=== PATIENT | female | born 1980 | race Caucasian/White ===

== ENCOUNTER 2018-05-27 10:16 | Emergency (ER) | payer SELFPAY ==
--- OUTSIDE RECORDS SUMMARY | 2018-05-27 10:18 | XMS REPORT ---
:1980 [facility] Address [address] Raya [address] [place] [id number] Care Team Providers Name Role Phone Unavailable Unavailable Unavailable Problems This patient has no known problems. Allergies, Adverse Reactions, Alerts This patient has no known allergies or adverse reactions. Medications This patient has no known medications.
[2018-05-27 12:12] LABS: Absolute Lymphocytes (CBC) 3.1 K/uL (0.7-4.9); Absolute Monocytes 0.5 K/uL (0.1-1.3); Absolute Neutrophil 5.7 K/uL (1.8-8.0); Basophils % 0.8 % (0-1.3); Eosinophils % 1.1 % (0-4.4); Hematocrit 47.3 % (36.0-45.0); Lymphocytes % 32.8 % (15.3-44.8); MPV 9.2 fL (7.6-11.3); Monocytes % 5.4 % (3.3-12.3); RBC Red Blood Cell Count 5.05 M/uL (3.86-4.86)
[2018-05-27 12:26] LABS: ALT/SGPT 14 U/L (12-78); AST/SGOT 10 U/L (15-37); Albumin 3.9 g/dL (3.4-5.0); Alkaline Phosphatase 100 U/L (45-117); BUN Blood Urea Nitrogen 9 mg/dL (7-18); Bicarbonate 29 mmol/L (21-32); Bilirubin Direct < 0.1 mg/dL (0-0.2); Bilirubin Total 0.4 mg/dL (0.2-1.0); Glucose Level 90 mg/dL (74-106); Lipase 134 U/L (73-393); Potassium 3.8 mmol/L (3.5-5.1); Protein, Total 7.9 g/dL (6.4-8.2); Sodium Level 140 mmol/L (136-145)
--- NOTE | 2018-05-27 13:15 | RAD REPORT ---
EXAM DESCRIPTION: CTAbdomen Pelvis W Contrast - 05/27/2018 1:07 pm CLINICAL HISTORY: Abdominal pain. ABD PAIN COMPARISON: CT ABD PELVIS W CONTRAST dated 04/02/2014 TECHNIQUE: Biphasic CT imaging of the abdomen and pelvis was performed with 100 ml non-ionic IV cont rast. All CT scans are performed using dose optimization technique as appropriate and may include automated exposure control or mA/KV adjustment according to patient size. FINDINGS: The lung bases are clear. The liver, spleen, pancreas, adrenal glands and kidneys are within normal limits. No bowel obstruction, free air, free fluid or abscess. The appendix is normal. No evidence of signi ficant lymphadenopathy. No suspicious bony findings. IMPRESSION: No acute intra-abdominal or pelvic finding.
[2018-05-27 13:22] LABS: Urine Blood NEGATIVE (NEG); Urine Glucose NEGATIVE (NEG); Urine Protein NEGATIVE (NEG); Urine pH 6.5 (5.0-7.0)
--- NOTE | 2018-05-27 13:52 | EDPHYS ---
Physician Documentation [facility] Name: Manolo Cotter Age: 38 yrs Sex: Female : 1980 Arrival Date: 05/27/2018 Time: 10:18 Bed 15 Private MD: ED Physician Seth Riley HPI: 05/27 11:30 This 38 yrs old Female presents to ER via Ambulatory with complaints of cp Abdominal Pain. 11:30 The patient presents with abdominal pain in the left upper quadrant. Onset: The cp symptoms/episode began/occurred 2 year(s) ago. The symptoms radiate to left back. Associated signs and symptoms: Pertinent positives: left lower rib pain, Pertinent negatives: blood in stools, constipation, diarrhea, fever, shortness of breath, vomiting. The symptoms are described as sharp. Modifying factors: the symptoms are aggravated by food. Severity of pain: in the emergency department the pain has improved mildly. 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 - Social history:: Smoking status: Patient uses tobacco products, smokes one pack cigarettes per day. - Ebola Screening: : Patient negative for fever greater than or equal to 101.5 degrees Fahrenheit, and additional compatible Ebola Virus Disease symptoms Patient denies exposure to infectious person Patient denies travel to an Ebola-affected area in the 21 days before illness onset. ROS: 11:35 Constitutional: Negative for body aches, chills, fever, poor PO intake, weight loss. cp 11:35 Eyes: Negative for injury, pain, redness, and discharge. cp 11:35 ENT: Negative for drainage from ear(s), ear pain, sore throat, difficulty swallowing, difficulty handling secretions. 11:35 Respiratory: Negative for cough, shortness of breath, wheezing. 11:35 Abdomen/GI: Positive for abdominal pain, of the epigastric area and left upper quadrant, Negative for vomiting, diarrhea, constipation, black/tarry stool, rectal bleeding. 11:35 Back: Negative for pain at rest, pain with movement. 11:35 Skin: Negative for cellulitis, rash. 11:35 All other systems are negative. Exam: 11:45 Constitutional: The patient appears in no acute distress, alert, awake, cp non-diaphoretic, non-toxic, well developed, well nourished. 11:45 Head/Face: Normocephalic, atraumatic. cp 11:45 Eyes: Periorbital structures: appear normal, Conjunctiva: normal, no exudate, no injection, Sclera: no appreciated abnormality, Lids and lashes: appear normal, bilaterally. 11:45 ENT: External ear(s): are unremarkable, Nose: is normal, Mouth: Lips: moist, Oral mucosa: pink and intact, moist, Posterior pharynx: is normal, airway is patent, no erythema, no exudate. 11:45 Chest/axilla: Inspection: normal, Palpation: crepitus, is not appreciated, tenderness, that is mild, of the left lower lateral rib area. 11:45 Cardiovascular: Rate: normal, Rhythm: regular, Heart sounds: murmur, not appreciated, Edema: is not appreciated, JVD: is not appreciated. 11:45 Respiratory: the patient does not display signs of respiratory distress, Respirations: normal, no use of accessory muscles, no retractions, no splinting, no tachypnea, labored breathing, is not present, Breath sounds: are clear throughout, no decreased breath sounds, no stridor, no wheezing. 11:45 Abdomen/GI: Inspection: abdomen appears normal, Bowel sounds: active, all quadrants, Palpation: soft, in all quadrants, moderate abdominal tenderness, in the left upper quadrant, rebound tenderness, is not appreciated, involuntary guarding, is not appreciated. 11:45 Back: pain, is absent, ROM is normal. 11:45 Skin: cellulitis, is not appreciated, no rash present. Vital Signs: 10:43 BP 135 / 96; Pulse 78; Resp 18; Temp 98.2; Pulse Ox 100% on R/A; Weight 77.11 kg; dm5 Height 5 ft. 2 in. (157.48 cm); Pain 0/10; 11:30 BP 119 / 90 LA; Pulse 71; Resp 16 S; Pulse Ox 96% on R/A; rv 12:00 BP 119 / 92 LA; Pulse 69; Resp 19 S; Pulse Ox 95% on R/A; rv 14:06 BP 129 / 92 LA; Pulse 71; Resp 17 S; Pulse Ox 96% on R/A; rv 10:43 Body Mass Index 31.09 (77.11 kg, 157.48 cm) dm5 MDM: 11:28 Patient medically screened. [facility] 13:50 Data reviewed: vital signs, nurses notes, lab test result(s), radiologic studies, CT cp scan. 13:50 Counseling: I had a detailed discussion with the patient and/or guardian regarding: the cp historical points, exam findings, and any diagnostic results supporting the discharge/admit diagnosis, lab results, radiology results, the need for outpatient follow up, a producer director, to return to the emergency department if symptoms worsen or persist or if there are any questions or concerns that arise at home. Response to treatment: the patient's symptoms have mildly improved after treatment, and as a result, I will discharge patient. Special discussion: Based on the patient's Hx, exam, and Dx evaluation, there is no indication for emergent surgery or inpatient Tx. It is understood by the patient/guardian that if the Sx's persist or worsen they need to return immediately for re-evaluation. 05/27 11:39 Order name: Basic Metabolic Panel; Complete Time: 12:54 cp 05/27 11:39 Order name: CBC with Diff; Complete Time: 12:54 cp 05/27 12:55 Interpretation: Normal except: RBC 5.05; HGB 16.0; HCT 47.3. cp 05/27 11:39 Order name: Creatinine for Radiology; Complete Time: 12:54 cp 05/27 11:39 Order name: Hepatic Function; Complete Time: 12:54 cp 05/27 11:39 Order name: Lipase; Complete Time: 12:54 cp 05/27 12:08 Order name: Urine Dipstick--Ancillary (enter results); Complete Time: 13:23 bd 05/27 10:49 Order name: CT Abd/Pelvis - W/Contrast; Complete Time: 13:23 dm5 05/27 13:24 Interpretation: Report reviewed. cp 05/27 11:39 Order name: IV Saline Lock; Complete Time: 12:34 cp 05/27 11:39 Order name: Labs collected and sent; Complete Time: 12:34 cp 05/27 11:39 Order name: Urine Dipstick-Ancillary (obtain specimen); Complete Time: 12:34 cp 05/27 11:39 Order name: Urine Test (obtain specimen); Complete Time: 12:34 cp 05/27 12:08 Order name: Urine --Ancillary (enter results); Complete Time: 13:23 bd Administered Medications: 14:06 Drug: GI Cocktail without - (Maalox Suspension 30 ml, Lidocaine Liquid 2 % 15 rv ml) Route: PO; 14:06 Follow up: Response: Medication administered at discharge. rv Disposition: 05/27/18 13:51 Discharged to Home. Impression: Upper abdominal pain, unspecified. - Condition is Stable. - Discharge Instructions: Food Choices for Gastroesophageal Reflux Disease, Adult, Gastritis, Adult, Gastroesophageal Reflux Disease, Adult. - Prescriptions for Protonix 40 mg Oral Tablet - take 1 tablet by ORAL route once daily; 30 tablet. - Medication Reconciliation Form, Thank You Letter, Antibiotic Education, Prescription Opioid Use form. - Follow up: Bashir Duval MD; When: 1 week; Reason: Recheck today's complaints. - Problem is an ongoing problem. - Symptoms have improved. Addendum: 05/28/2018 14:17 Co-signature as Attending Physician, Seth Riley MD I agree with the assessment and c carpio plan of care. Signatures: Dispatcher [employer] Mima Lopez, RN RN dm5 Seth Riley MD MD cha Page, Corey, PA PA cp Sandoval Gutierres RN RN rv Corrections: (The following items were deleted from the chart) 05/27 14:08 13:51 05/27/2018 13:51 Discharged to Home. Impression: Upper abdominal pain, rv unspecified. Condition is Stable. Forms are Medication Reconciliation Form, Thank You Letter, Antibiotic Education, Prescription Opioid Use. Follow up: Bashir Duval; When: 1 week; Reason: Recheck today's complaints. Problem is an ongoing problem. Symptoms have improved. cp
--- NOTE | 2018-05-27 13:52 | ER ---
Nurse's Notes [facility] Name: Manolo Cotter Age: 38 yrs Sex: Female : 1980 Arrival Date: 05/27/2018 Time: 10:18 Bed 15 Private MD: Diagnosis: Upper abdominal pain, unspecified Presentation: 05/27 10:39 Presenting complaint: Patient states: pressure/pain under left ribs with intermittent dm5 sharp pain. bloody nose after vomiting Friday night. Transition of care: patient was not received from another setting of care. Onset of symptoms was May 22, 2018. Risk Assessment: Do you want to hurt yourself or someone else? Patient reports no desire to harm self or others. Initial Sepsis Screen: Does the patient meet any 2 criteria? No. Patient's initial sepsis screen is negative. Does the patient have a suspected source of infection? No. Patient's initial sepsis screen is negative. Care prior to arrival: None. 10:39 Method Of Arrival: Ambulatory dm5 10:39 Acuity: NIKO 3 dm5 Triage Assessment: 10:43 General: Appears in no apparent distress. Behavior is calm, cooperative. Pain: dm5 Complains of pain in left upper quadrant Quality of pain is described as sharp, stabbing, pt says most of the time it is like a pressure, a ball under her left ribs. GI: Abdomen is round obese, Reports nausea, vomiting. Derm: Skin is pink, warm \T\ dry. 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 - Social history:: Smoking status: Patient uses tobacco products, smokes one pack cigarettes per day. - Ebola Screening: : Patient negative for fever greater than or equal to 101.5 degrees Fahrenheit, and additional compatible Ebola Virus Disease symptoms Patient denies exposure to infectious person Patient denies travel to an Ebola-affected area in the 21 days before illness onset. Screenin:45 Abuse screen: Denies threats or abuse. Denies injuries from another. Nutritional rv screening: No deficits noted. Tuberculosis screening: No symptoms or risk factors identified. Fall Risk None identified. Assessment: 11:42 General: Appears in no apparent distress. comfortable, Behavior is calm, cooperative. rv Pain: Complains of pain in abdomen. Neuro: Level of Consciousness is awake, alert, obeys commands, Oriented to person, place, time, situation. Cardiovascular: Reports. Respiratory: Reports. GI: Bowel sounds present X 4 quads. Abd is soft and non tender X 4 quads. : No signs and/or symptoms were reported regarding the genitourinary system. : No signs and/or symptoms were reported regarding the genitourinary system. EENT: No signs and/or symptoms were reported regarding the EENT system. Derm: Skin is intact. Musculoskeletal: No signs and/or symptoms reported regarding the musculoskeletal system. 12:44 Reassessment: patient finished the oral contrast and started developing diarrhea after. rv Vital Signs: 10:43 BP 135 / 96; Pulse 78; Resp 18; Temp 98.2; Pulse Ox 100% on R/A; Weight 77.11 kg; dm5 Height 5 ft. 2 in. (157.48 cm); Pain 0/10; 11:30 BP 119 / 90 LA; Pulse 71; Resp 16 S; Pulse Ox 96% on R/A; rv 12:00 BP 119 / 92 LA; Pulse 69; Resp 19 S; Pulse Ox 95% on R/A; rv 14:06 BP 129 / 92 LA; Pulse 71; Resp 17 S; Pulse Ox 96% on R/A; rv 10:43 Body Mass Index 31.09 (77.11 kg, 157.48 cm) dm5 ED Course: 10:18 Patient arrived in ED. as 10:43 Triage completed. dm5 10:43 Arm band placed on right wrist. Patient placed in waiting room. dm5 11:28 Seth Kamara PA is PHCP. cp 11:28 Seth Riely MD is Attending Physician. cp 11:30 CT that pt completed contrast at 11:27. dm5 11:46 Patient has correct armband on for positive identification. Bed in low position. Call rv light in reach. Side rails up X 1. Pulse ox on. NIBP on. 12:00 Inserted saline lock: 20 gauge in right antecubital area, using aseptic technique. rv Blood collected. 13:06 CT completed. Patient tolerated procedure well. Patient moved to CT via wheelchair. [id number] Patient moved back from CT. 13:07 CT Abd/Pelvis - W/Contrast In Process Unspecified. EDMS 13:50 Bashir Duval MD is Referral Physician. cp 14:08 No provider procedures requiring assistance completed. IV discontinued, bleeding rv controlled, No redness/swelling at site. Pressure dressing applied. Administered Medications: 14:06 Drug: GI Cocktail without - (Maalox Suspension 30 ml, Lidocaine Liquid 2 % 15 rv ml) Route: PO; 14:06 Follow up: Response: Medication administered at discharge. rv Outcome: 13:51 Discharge ordered by . cp 14:08 Discharged to home ambulatory. rv 14:08 Condition: good 14:08 Discharge instructions given to patient, Instructed on discharge instructions, follow up and referral plans. medication usage, Demonstrated understanding of instructions, follow-up care, medications, Prescriptions given X 1. 14:08 Patient left the ED. rv Signatures: Dispatcher [employer] EDWI Mima Hardy, YADIRA RN dm5 Ting Montez Corey, PA PA cp Sandoval Gutierres RN RN rv Jeanie Rodriguezg6 Corrections: (The following items were deleted from the chart) 10:46 10:43 BP 125 / 96; Pulse 78bpm; Resp 18bpm; Pulse Ox 100% RA; Temp 98.2F; 77.11 kg; dm5 Height 5 ft. 2 in.; BMI: 31.0; Pain 0/10; dm5
[2018-05-27] MEDS ORDERED: MAGNE/ALUM HYDROXD 30 ML UCUP ONE (14:12)
[2018-05-27] MEDS ORDERED: LIDOCAINE VISCOUS 2% SOLN 15 ML UDC ONE (14:13)
== END 2018-05-27 14:08 | disposition home or self-care (01) ==
LOC: ER 10:16
DX: R10.12 Left upper quadrant pain (principal); I10 Essential (primary) hypertension; F17.210 Nicotine dependence, cigarettes, uncomplicated; Z88.0 Allergy status to penicillin; Z88.1 Allergy status to other antibiotic agents
CPT/HCPCS: 36415; 74177; 80048; 80076; 81003; 81025; 83690; 85025; 99284; Q9967

== ENCOUNTER 2019-01-14 13:03 | Emergency (ER) | payer SELFPAY ==
[2019-01-14] MEDS ORDERED: KETOROLAC 30 MG/ML INJ ONE (13:35)
--- NOTE | 2019-01-14 14:44 | RAD REPORT ---
EXAM DESCRIPTION: RAD - Wrist Right 3 View - 01/14/2019 2:28 pm CLINICAL HISTORY: Right wrist pain status post injury FINDINGS: Small bony density lies adjacent to the base of the fifth proximal phalanx. Most likely it is chronic. If the patient has clinical symptoms to suggest an acute injury in this region then eith er further evaluation with CT or MRI could be obtained Otherwise, no fracture or dislocation noted
--- NOTE | 2019-01-14 15:40 | EDPHYS ---
Physician Documentation [facility] Name: Manolo Cotter Age: 38 yrs Sex: Female : 1980 Arrival Date: 01/14/2019 Time: 13:05 Bed 13 Private MD: Unknown, Unknown ED Physician Kimo Mcdaniel HPI: 01/14 13:34 This 38 yrs old Female presents to ER via Ambulatory with complaints of Wrist kb Pain. 13:34 The patient or guardian reports decreased range of motion, injury, pain, swelling, kb tenderness. The complaints affect the right wrist diffusely. Context: The problem was sustained at home, resulted from pushing up on hands from bed and felt a pop in right wrist. Onset: The symptoms/episode began/occurred today, at 02:00. Modifying factors: The symptoms are alleviated by nothing, the symptoms are aggravated by movement. Associated signs and symptoms: The patient has no apparent associated signs or symptoms. The patient has not experienced similar symptoms in the past. The patient has not recently seen a physician. 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 - Social history:: Smoking status: Patient uses tobacco products, smokes one pack cigarettes per day. - Ebola Screening: : No symptoms or risks identified at this time. ROS: 13:32 Constitutional: Negative for fever, chills, and weight loss, Cardiovascular: Negative kb for chest pain, palpitations, and edema, Respiratory: Negative for shortness of breath, cough, wheezing, and pleuritic chest pain, Abdomen/GI: Negative for abdominal pain, nausea, vomiting, diarrhea, and constipation, Skin: Negative for injury, rash, and discoloration, Neuro: Negative for headache, weakness, numbness, tingling, and seizure. 13:32 MS/extremity: Positive for injury or acute deformity, decreased range of motion, pain, tenderness, of the right wrist. Exam: 13:32 Constitutional: This is a well developed, well nourished patient who is awake, alert, kb and in no acute distress. Head/Face: Normocephalic, atraumatic. ENT: Nares patent. No nasal discharge, no septal abnormalities noted. Tympanic membranes are normal and external auditory canals are clear. Oropharynx with no redness, swelling, or masses, exudates, or evidence of obstruction, uvula midline. Mucous membranes moist. Neck: Trachea midline, no thyromegaly or masses palpated, and no cervical lymphadenopathy. Supple, full range of motion without nuchal rigidity, or vertebral point tenderness. No Meningismus. Chest/axilla: Normal chest wall appearance and motion. Nontender with no deformity. No lesions are appreciated. Cardiovascular: Regular rate and rhythm with a normal S1 and S2. No gallops, murmurs, or rubs. Normal PMI, no JVD. No pulse deficits. Respiratory: Lungs have equal breath sounds bilaterally, clear to auscultation and percussion. No rales, rhonchi or wheezes noted. No increased work of breathing, no retractions or nasal flaring. Abdomen/GI: Soft, non-tender, with normal bowel sounds. No distension or tympany. No guarding or rebound. No evidence of tenderness throughout. Skin: Warm, dry with normal turgor. Normal color with no rashes, no lesions, and no evidence of cellulitis. Neuro: Awake and alert, GCS 15, oriented to person, place, time, and situation. Cranial nerves II-XII grossly intact. Motor strength 5/5 in all extremities. Sensory grossly intact. Cerebellar exam normal. Normal gait. 13:32 Musculoskeletal/extremity: Extremities: grossly normal except: noted in the right wrist: decreased ROM, pain, swelling, tenderness, ROM: limited active range of motion due to pain, in the right wrist, Circulation is intact in all extremities. Sensation intact. Vital Signs: 13:14 BP 150 / 102; Pulse 77; Resp 16; Temp 97.5; Pulse Ox 100% on R/A; Weight 81.65 kg; hb Height 5 ft. 3 in. (160.02 cm); Pain 9/10; 15:44 BP 135 / 89; Pulse 81; Resp 16 S; Pulse Ox 100% on R/A; ca1 13:14 Body Mass Index 31.89 (81.65 kg, 160.02 cm) hb MDM: 13:13 Patient medically screened. kb 13:33 Data reviewed: vital signs, nurses notes. Data interpreted: Pulse oximetry: on room air kb is 100 %. Interpretation: normal. 14:42 Test interpretation: by ED physician or midlevel provider: plain radiologic studies, kb negative for fracture. Counseling: I had a detailed discussion with the patient and/or guardian regarding: the historical points, exam findings, and any diagnostic results supporting the discharge/admit diagnosis, radiology results, the need for outpatient follow up, a family practitioner, to return to the emergency department if symptoms worsen or persist or if there are any questions or concerns that arise at home. 01/14 13:13 Order name: Wrist Right 3 View XRAY; Complete Time: 15:42 kb 01/14 14:43 Order name: Wrist Splint; Complete Time: 15:44 kb Administered Medications: 13:40 Drug: TORadol 30 mg Route: IM; Site: left deltoid; ca1 15:44 Follow up: Response: No adverse reaction; Pain is decreased ca1 Disposition: 01/15 09:16 Co-signature as Attending Physician, Kimo Mcdaniel MD I agree with the assessment and kdr plan of care. Disposition: 01/14/19 15:39 Discharged to Home. Impression: Pain in right wrist. - Condition is Stable. - Discharge Instructions: Wrist Pain, [id number]. - Prescriptions for Diclofenac Sodium 75 mg Oral Tablet, Delayed Release (E.C.) - take 1 tablet by ORAL route 2 times per day As needed; 30 tablet. - Medication Reconciliation Form, Thank You Letter, Antibiotic Education, Prescription Opioid Use form. - Follow up: Emergency Department; When: As needed; Reason: Worsening of condition. Follow up: Private Physician; When: 2 - 3 days; Reason: Recheck today's complaints, Continuance of care, Re-evaluation by your physician. Signatures: Dispatcher [employer] EDMS Mahsa Vivas, CASTING TESTER-C JENIFER-Kimo Kovacs MD MD [facility] Christy Miller RN RN Gala Rebolledo RN RN ca1 Corrections: (The following items were deleted from the chart) 01/14 15:45 15:39 01/14/2019 15:39 Discharged to Home. Impression: Pain in right wrist. Condition ca1 is Stable. Discharge Instructions: Wrist Pain, [id number]. Forms are Medication Reconciliation Form, Thank You Letter, Antibiotic Education, Prescription Opioid Use. Follow up: Emergency Department; When: As needed; Reason: Worsening of condition. Follow up: Private Physician; When: 2 - 3 days; Reason: Recheck today's complaints, Continuance of care, Re-evaluation by your physician. kb
--- NOTE | 2019-01-14 15:40 | ER ---
Nurse's Notes [facility] Name: Manolo Cotter Age: 38 yrs Sex: Female : 1980 Arrival Date: 01/14/2019 Time: 13:05 Bed 13 Private MD: Unknown, Unknown Diagnosis: Pain in right wrist Presentation: 01/14 13:11 Presenting complaint: [place] and heard a loud pop in right wrist while adjusting in bed hb last night, now c/o right wrist pain 11/24. Transition of care: patient was not received from another setting of care. Onset of symptoms was January 14, 2019. Risk Assessment: Do you want to hurt yourself or someone else? Patient reports no desire to harm self or others. Care prior to arrival: Medication(s) given: Motrin, at 0600. 13:11 Method Of Arrival: Ambulatory hb 13:11 Acuity: NIKO 4 hb 13:31 Initial Sepsis Screen: Does the patient meet any 2 criteria? No. Patient's initial ca1 sepsis screen is negative. Does the patient have a suspected source of infection? No. Patient's initial sepsis screen is negative. 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 - Social history:: Smoking status: Patient uses tobacco products, smokes one pack cigarettes per day. - Ebola Screening: : No symptoms or risks identified at this time. Screenin:28 Abuse screen: Denies threats or abuse. Denies injuries from another. Nutritional ca1 screening: No deficits noted. Tuberculosis screening: No symptoms or risk factors identified. Fall Risk None identified. Assessment: 13:28 General: Appears in no apparent distress. comfortable, Behavior is calm, cooperative, ca1 appropriate for age. Pain: Complains of pain in dorsal aspect of right wrist and palmar aspect of right wrist Pain radiates to right hand and right arm Pain currently is 9 out of 10 on a pain scale. Pain began 1 day ago. Neuro: Level of Consciousness is awake, alert, obeys commands, Oriented to person, place, time, situation, Appropriate for age. Derm: Skin is intact, is healthy with good turgor, Skin is pink, warm \T\ dry. Musculoskeletal: Circulation, motion, and sensation intact. Capillary refill < 3 seconds, Range of motion: limited in right wrist Swelling present in right hand. 14:30 Reassessment: Patient appears in no apparent distress at this time. Patient is alert, ca1 oriented x 3, equal unlabored respirations, skin warm/dry/pink. 15:44 Reassessment: Patient appears in no apparent distress at this time. Patient is alert, ca1 oriented x 3, equal unlabored respirations, skin warm/dry/pink. Vital Signs: 13:14 BP 150 / 102; Pulse 77; Resp 16; Temp 97.5; Pulse Ox 100% on R/A; Weight 81.65 kg; hb Height 5 ft. 3 in. (160.02 cm); Pain 9/10; 15:44 BP 135 / 89; Pulse 81; Resp 16 S; Pulse Ox 100% on R/A; ca1 13:14 Body Mass Index 31.89 (81.65 kg, 160.02 cm) hb ED Course: 13:05 Patient arrived in ED. ag5 13:05 Unknown, Unknown is Private Physician. ag5 13:12 Triage completed. hb 13:13 [facility]-C [facility] kb 13:13 Kimo Mcdaniel MD is Attending Physician. kb 13:14 Arm band placed on. hb 13:17 Gala Rebolledo, YADIRA is Primary Nurse. ca1 13:28 Patient has correct armband on for positive identification. Bed in low position. Call ca1 light in reach. Side rails up X 1. Ice pack to injury. Elevated right hand. 13:28 No provider procedures requiring assistance completed. Patient did not have IV access ca1 during this emergency room visit. 14:28 Wrist Right 3 View XRAY In Process Unspecified. EDMS 15:44 Velcro wrist splint applied to right wrist. ca1 Administered Medications: 13:40 Drug: TORadol 30 mg Route: IM; Site: left deltoid; ca1 15:44 Follow up: Response: No adverse reaction; Pain is decreased ca1 Outcome: 15:39 Discharge ordered by . kb 15:44 Discharged to home ambulatory, with family. ca1 15:44 Condition: stable 15:44 Discharge instructions given to patient, Instructed on discharge instructions, follow up and referral plans. medication usage, Demonstrated understanding of instructions, follow-up care, medications, Prescriptions given X 1. 15:45 Patient left the ED. ca1 Signatures: Dispatcher [employer] EDRI Mahsa Vivas, Christy Wallace RN RN Gala Rebolledo RN RN ca1 Janice Ibanez ag5
[2019-01-14 16:04] VITALS: TEMP 97.5; O2SAT 100
[2019-01-14 16:06] VITALS: BP 135/89
== END 2019-01-14 15:45 | disposition home or self-care (01) ==
LOC: ER 13:03
DX: M25.531 Pain in right wrist (principal); Z88.0 Allergy status to penicillin; Z88.1 Allergy status to other antibiotic agents; I10 Essential (primary) hypertension
CPT/HCPCS: 96372; 99284

== ENCOUNTER 2019-04-14 01:50 | Emergency (ER) | payer SELFPAY ==
--- OUTSIDE RECORDS SUMMARY | 2019-04-14 01:53 | XMS REPORT ---
:1980 [facility] [address] [place] [id number] Care Team Providers Name Role Phone Unavailable Unavailable Unavailable Problems This patient has no known problems. Allergies, Adverse Reactions, Alerts This patient has no known allergies or adverse reactions. Medications This patient has no known medications.
[2019-04-14 02:48] LABS: Protime INR 1.01
[2019-04-14 02:49] LABS: Absolute Lymphocytes (CBC) 2.4 K/uL (0.7-4.9); Basophils % 0.7 % (0-1.3); Hematocrit 42.5 % (36.0-45.0); Lymphocytes % 17.3 % (15.3-44.8); MPV 9.2 fL (7.6-11.3); RBC Red Blood Cell Count 4.58 M/uL (3.86-4.86)
[2019-04-14 03:01] LABS: Urine Blood NEGATIVE (NEG); Urine Glucose NEGATIVE (NEG); Urine Protein NEGATIVE (NEG); Urine Specific Gravity <1.005 (1.005-1.030)
[2019-04-14 03:07] LABS: ALT/SGPT 16 U/L (12-78); AST/SGOT 16 U/L (15-37); Albumin 3.7 g/dL (3.4-5.0); Alkaline Phosphatase 127 U/L (45-117); BUN Blood Urea Nitrogen 16 mg/dL (7-18); Bicarbonate 28 mmol/L (21-32); Bilirubin Direct < 0.1 mg/dL (0-0.2); Bilirubin Total 0.2 mg/dL (0.2-1.0); Glucose Level 103 mg/dL (74-106); Magnesium 1.8 mg/dL (1.8-2.4); NT PRO-BNP 32 pg/mL (<125); Potassium 4.2 mmol/L (3.5-5.1); Protein, Total 7.2 g/dL (6.4-8.2); Sodium Level 138 mmol/L (136-145); Troponin (Emerg Dept Use Only) < 0.02 ng/mL (0.0-0.045)
--- NOTE | 2019-04-14 04:21 | ER ---
Nurse's Notes [facility] Name: Manolo Cotter Age: 39 yrs Sex: Female : 1980 Arrival Date: 04/14/2019 Time: 01:53 Bed 24 Private MD: Diagnosis: Syncope and collapse Presentation: 04/14 02:00 Presenting complaint: Patient states: around 2330, passed out, had witnessed seizure ch like activity for approx 2 min, then came right back to normal. since then has had urinary frequency and bowel frequency. 02:00 Transition of care: patient was not received from another setting of care. Onset of ch symptoms was April 13, 2019 at 23:30. Risk Assessment: Do you want to hurt yourself or someone else? Patient reports no desire to harm self or others. Initial Sepsis Screen: Does the patient meet any 2 criteria? No. Patient's initial sepsis screen is negative. Does the patient have a suspected source of infection? No. Patient's initial sepsis screen is negative. Note pt states she has to go to the restroom. pt refuses EKG till she has urinated. Care prior to arrival: None. 02:00 Method Of Arrival: Ambulatory 02:00 Acuity: NIKO 3 ch Triage Assessment: 02:10 General: Appears in no apparent distress. Behavior is cooperative, appropriate for age, ch anxious. Pain: Complains of pain in mid-sternal area Pain currently is 2 out of 10 on a pain scale. Pain began suddenly, 3 hours ago. Neuro: No deficits noted. Respiratory: Airway is patent Respiratory effort is even, unlabored. 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 Flu vaccine status is unknown. - Coronavirus screen:: The patient has NOT traveled to [place], [place], or [place] in the past 14 days. The patient has NOT had contact with known/suspected case of Coronavirus?. - Social history:: Smoking status: Patient reports the use of cigarette tobacco products, smokes two packs cigarettes per day. Patient/guardian denies using alcohol, street drugs. - Ebola Screening: : Patient negative for fever greater than or equal to 101.5 degrees Fahrenheit, and additional compatible Ebola Virus Disease symptoms Patient denies exposure to infectious person Patient denies travel to an Ebola-affected area in the 21 days before illness onset No symptoms or risks identified at this time. Screenin:40 Abuse screen: Denies threats or abuse. Denies injuries from another. Nutritional ch screening: No deficits noted. Tuberculosis screening: No symptoms or risk factors identified. Fall Risk Fall in past 12 months (25 points). No secondary diagnosis (0 pts). IV access (20 points). Ambulatory Aid- None/Bed Rest/Nurse Assist (0 pts). Gait- Normal/Bed Rest/Wheelchair (0 pts) Mental Status- Oriented to own ability (0 pts). Total Ashraf Fall Scale indicates Low Risk Score (25-44 pts). Fall prevention measures have been instituted. Side Rails Up X 2 Placed close to Nursing Station Frequent Obs/Assesments occuring Family Present and informed to notify staff if they need to leave bedside As available Patient and Family Educated on Fall Prevention Program and strategies. Assessment: 02:40 Reassessment: Patient appears in no apparent distress at this time. No changes from previously documented assessment. Patient and/or family updated on plan of care and expected duration. Pain level reassessed. Patient is alert, oriented x 3, equal unlabored respirations, skin warm/dry/pink. pt is aaox4, out of bed to restroom x3 since arrival. 02:57 Reassessment: Patient appears in no apparent distress at this time. Mando notified of pt ch thirst, urinary frequency, and family hx of diabetis insipidus. new labs ordered. 03:49 Reassessment: Patient appears in no apparent distress at this time. Patient and/or ch family updated on plan of care and expected duration. Pain level reassessed. Patient is alert, oriented x 3, equal unlabored respirations, skin warm/dry/pink. awaiting urine osmol results. pt has been to restroom over 10 times since arrival. 04:41 Reassessment: Patient appears in no apparent distress at this time. Patient and/or ch family updated on plan of care and expected duration. Pain level reassessed. Patient is alert, oriented x 3, equal unlabored respirations, skin warm/dry/pink. pt states she just feels tired. states she feels better but tired. Patient denies pain at this time. Vital Signs: 02:10 BP 147 / 104; Pulse 102; Resp 18; Temp 98.6; Pulse Ox 99% on R/A; Weight 81.65 kg; ch Height 5 ft. 2 in. (157.48 cm); Pain 2/10; 02:46 BP 122 / 88 LA Supine (auto/lg); Pulse 92; ch 02:48 BP 131 / 104 LA Sitting (auto/); Pulse 98 LA; ch 02:50 BP 126 / 111 LA Standing (auto/lg); Pulse 100 MON; ch 03:34 BP 115 / 78; Pulse 90; Resp 15; Temp 98.7; Pulse Ox 97% on R/A; Pain 2/10; ch 04:41 BP 110 / 72; Pulse 82; Resp 14; Temp 98.9; Pulse Ox 99% on R/A; Pain 1/10; ch 02:10 Body Mass Index 32.92 (81.65 kg, 157.48 cm) ch 02:50 Normal Sinus Rhythm ED Course: 01:53 Patient arrived in ED. ds1 01:57 Tania Estrada, RN is Primary Nurse. ch 02:09 Triage completed. ch 02:12 Mando Kinney FNP-C [facility]. la1 02:12 Jose Shankar MD is Attending Physician. la1 02:12 Arm band placed on left wrist. Patient placed in an exam room, on a stretcher, on groundwater monitoring technician, on pulse oximetry. EKG completed in triage. Results shown to MD. 02:15 No provider procedures requiring assistance completed. Inserted saline lock: 20 gauge in right antecubital area, using aseptic technique. Blood collected. 02:30 XRAY Chest (1 view) In Process Unspecified. EDMS 02:40 Patient has correct armband on for positive identification. Placed in gown. Bed in low ch position. Call light in reach. Side rails up X2. Adult w/ patient. groundwater monitoring technician on. Pulse ox on. NIBP on. Door closed. Noise minimized. Warm blanket given. Pillow given. 03:05 CT completed. Patient tolerated procedure well. Patient moved to CT via stretcher. Patient moved back from CT. 03:09 CT Head Brain wo Cont In Process Unspecified. EDMS 04:41 No apparent distress. Resting quietly. 04:41 IV discontinued, intact, bleeding controlled, No redness/swelling at site. Pressure dressing applied. Administered Medications: No medications were administered Outcome: 04:20 Discharge ordered by tw4 04:41 Discharged to home ambulatory, with family. 04:41 Condition: stable 04:41 Discharge instructions given to patient, family, Instructed on discharge instructions, follow up and referral plans. Demonstrated understanding of instructions, follow-up care. 04:42 Patient left the ED. Signatures: Dispatcher [employer] EDMS Tania Estrada, RN RN Alfa Hazel Jo Maria ds1 Mando Kinney, OUTDOOR EMERGENCY CARE TECHNICIAN-C OUTDOOR EMERGENCY CARE TECHNICIAN-Cla1 Jose Shankar MD MD tw4
--- NOTE | 2019-04-14 04:21 | EDPHYS ---
Physician Documentation [facility] Name: Manolo Cotter Age: 39 yrs Sex: Female : 1980 Arrival Date: 04/14/2019 Time: 01:53 Bed 24 Private MD: ED Physician Jose Shankar HPI: 04/14 02:34 This 39 yrs old Female presents to ER via Ambulatory with complaints of la1 Blacked Out Prior to Arrival. 02:34 The patient has experienced syncope, became unresponsive. Onset: The symptoms/episode la1 began/occurred just prior to arrival. Duration: This was a single episode, that lasted 2 minute(s). Context: the episode(s) was witnessed, by family, occurred at home, Just prior to the episode the patient experienced lightheadedness. Associated injury: The patient did not suffer any apparent associated injury. Associated signs and symptoms: Pertinent negatives: abdominal pain, chest pain, confusion, diaphoresis, diarrhea, numbness, palpitations, not . Current symptoms: Currently, the patient is not experiencing any symptoms. The patient has not experienced similar symptoms in the past. pt reports she heard the baby crying and got out of bed very fast, was trying to comfort the child but started to feel "bad" felt the need to sit down and then lay down and does not remember anything after than until waking up, family states she laid on the ground and than began "jerking" whole episode lasted about two minutes, pt did not have a post-ictal period and is currently alert, oriented x4. States she has had a lot of headaches recently.. 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 Flu vaccine status is unknown. - Coronavirus screen:: The patient has NOT traveled to [place], [place], or [place] in the past 14 days. The patient has NOT had contact with known/suspected case of Coronavirus?. - Social history:: Smoking status: Patient reports the use of cigarette tobacco products, smokes two packs cigarettes per day. Patient/guardian denies using alcohol, street drugs. - Ebola Screening: : Patient negative for fever greater than or equal to 101.5 degrees Fahrenheit, and additional compatible Ebola Virus Disease symptoms Patient denies exposure to infectious person Patient denies travel to an Ebola-affected area in the 21 days before illness onset No symptoms or risks identified at this time. ROS: 02:36 Constitutional: Negative for fever, chills, and weight loss, Eyes: Negative for injury, la1 pain, redness, and discharge, ENT: Negative for injury, pain, and discharge, Neck: Negative for injury, pain, and swelling, Cardiovascular: Negative for chest pain, palpitations, and edema, Respiratory: Negative for shortness of breath, cough, wheezing, and pleuritic chest pain, Abdomen/GI: Negative for abdominal pain, nausea, vomiting, diarrhea, and constipation, Back: Negative for injury and pain, : Negative for injury, bleeding, discharge, and swelling, MS/Extremity: Negative for injury and deformity, Neuro: Negative for headache, weakness, numbness, tingling, and seizure, Allergy/Immunology: Negative for hives, rash, and allergies, Endocrine: Negative for neck swelling, polydipsia, polyuria, polyphagia, and marked weight changes. Exam: 02:37 Constitutional: This is a well developed, well nourished patient who is awake, alert, la1 and in no acute distress. Head/Face: Normocephalic, atraumatic. Eyes: Pupils equal round and reactive to light, extra-ocular motions intact. Lids and lashes normal. Conjunctiva and sclera are non-icteric and not injected. Cornea within normal limits. Periorbital areas with no swelling, redness, or edema. ENT: Nares patent. No nasal discharge, no septal abnormalities noted. Mucous membranes moist. Neck: Trachea midline, no thyromegaly or masses palpated, and no cervical lymphadenopathy. Supple, full range of motion without nuchal rigidity, or vertebral point tenderness. No Meningismus. Chest/axilla: Normal chest wall appearance and motion. Nontender with no deformity. No lesions are appreciated. Cardiovascular: Regular rate and rhythm with a normal S1 and S2. No gallops, murmurs, or rubs. Normal PMI, no JVD. No pulse deficits. Respiratory: Lungs have equal breath sounds bilaterally, clear to auscultation Abdomen/GI: Soft, non-tender, with normal bowel sounds. Back: No spinal tenderness. No costovertebral tenderness. Full range of motion. Skin: Warm, dry with normal turgor. Normal color with no rashes, no lesions, and no evidence of cellulitis. MS/ Extremity: Pulses equal, no cyanosis. Neurovascular intact. Full, normal range of motion. 02:37 Neuro: Orientation: is normal, to person, place, time \\T\\ situation. Mentation: is normal, Memory: is normal, Cranial nerves: CN II- XII are normal as tested, visual stringer are intact. extraocular movements are intact, Cerebellar function: is grossly normal, Motor: is normal, Gait: is steady. Vital Signs: 02:10 BP 147 / 104; Pulse 102; Resp 18; Temp 98.6; Pulse Ox 99% on R/A; Weight 81.65 kg; ch Height 5 ft. 2 in. (157.48 cm); Pain 2/10; 02:46 BP 122 / 88 LA Supine (auto/lg); Pulse 92; ch 02:48 BP 131 / 104 LA Sitting (auto/); Pulse 98 LA; ch 02:50 BP 126 / 111 LA Standing (auto/lg); Pulse 100 MON; ch 03:34 BP 115 / 78; Pulse 90; Resp 15; Temp 98.7; Pulse Ox 97% on R/A; Pain 2/10; ch 04:41 BP 110 / 72; Pulse 82; Resp 14; Temp 98.9; Pulse Ox 99% on R/A; Pain 1/10; ch 02:10 Body Mass Index 32.92 (81.65 kg, 157.48 cm) ch 02:50 Normal Sinus Rhythm ch MDM: 02:12 Patient medically screened. la1 02:53 ED course: Pt up to pee four times so far in ED, has family hx of diabetes insipidus, la1 urine very dilute.. ED course: added serum and urine osmol. 03:33 ECG was reviewed by the Attending Physician. Data reviewed: vital signs, nurses notes, la1 lab test result(s), EKG, radiologic studies, I have discussed the patient's presentation/case with the attending Emergency Department Physician; and as a result, I will discharge patient. Data interpreted: Pulse oximetry: on room air is 100 %. Interpretation: normal. Test interpretation: by ED physician or midlevel provider: ECG, plain radiologic studies. Counseling: I had a detailed discussion with the patient and/or guardian regarding: the historical points, exam findings, and any diagnostic results supporting the discharge/admit diagnosis, the presence of at least one elevated blood pressure reading (>120/80) during this emergency department visit, lab results, the need for outpatient follow up, a bank vault clerk, a neurologist, to return to the emergency department if symptoms worsen or persist or if there are any questions or concerns that arise at home. 04/14 02:13 Order name: Basic Metabolic Panel; Complete Time: 03:12 04/14 02:13 Order name: CBC with Diff; Complete Time: 03:12 04/14 02:13 Order name: LFT's; Complete Time: 03:12 04/14 02:13 Order name: Magnesium; Complete Time: 03:12 04/14 02:13 Order name: NT PRO-BNP; Complete Time: 03:12 04/14 02:13 Order name: PT-INR; Complete Time: 03:12 04/14 02:13 Order name: Troponin (emerg Dept Use Only); Complete Time: 03:12 04/14 02:13 Order name: XRAY Chest (1 view) 04/14 02:13 Order name: EKG; Complete Time: 02:13 04/14 02:13 Order name: CT Head Brain wo Cont la1 04/14 02:23 Order name: Test, Serum; Complete Time: 03:12 [facility] 04/14 02:23 Order name: Urine Dipstick--Ancillary (enter results); Complete Time: 03:12 [facility] 04/14 02:52 Order name: Osmolality, Serum; Complete Time: 04:20 EDMS 04/14 04:20 Interpretation: Within normal limits: OSMOL 291. tw4 04/14 03:17 Order name: Urine Osmolality [facility] 04/14 02:13 Order name: Cardiac monitoring; Complete Time: 02:39 ch 04/14 02:13 Order name: EKG - Nurse/Tech; Complete Time: 02:39 04/14 02:13 Order name: IV Saline Lock; Complete Time: 02:39 04/14 02:13 Order name: Labs collected and sent; Complete Time: 02:39 04/14 02:13 Order name: O2 Per Protocol; Complete Time: 02:39 ch 04/14 02:13 Order name: O2 Sat Monitoring; Complete Time: 02:39 04/14 02:20 Order name: Orthostatics; Complete Time: 02:54 la1 Administered Medications: No medications were administered Disposition: 05:22 Co-signature as Attending Physician, Jose Shankar MD I agree with the assessment and tw4 plan of care. Disposition: 04/14/19 04:20 Discharged to Home. Impression: Syncope and collapse. - Condition is Stable. - Discharge Instructions: Near-Syncope, Syncope, Syncope, [id number], Vasovagal Syncope, Pediatric. - Family Work Release, Medication Reconciliation Form, Thank You Letter, Antibiotic Education, Prescription Opioid Use form. - Follow up: Private Physician; When: 2 - 3 days; Reason: Recheck today's complaints, Re-evaluation by your physician. Follow up: Emergency Department; When: As needed; Reason: Worsening of condition. - Problem is new. - Symptoms have improved. Signatures: Dispatcher [employer] EDMS Tania Estrada, YADIRA RN Mando Mueller, INSURANCE COMPLIANCE ANALYST-C INSURANCE COMPLIANCE ANALYST-Cla1 Jose Shankar MD MD tw4 Corrections: (The following items were deleted from the chart) 04:42 04:20 04/14/2019 04:20 Discharged to Home. Impression: Syncope and collapse. Condition ch is Stable. Discharge Instructions: Near-Syncope, Syncope, Syncope, [id number], Vasovagal Syncope, Pediatric. Forms are Medication Reconciliation Form, Thank You Letter, Antibiotic Education, Prescription Opioid Use. Follow up: Private Physician; When: 2 - 3 days; Reason: Recheck today's complaints, Re-evaluation by your physician. Follow up: Emergency Department; When: As needed; Reason: Worsening of condition. Problem is new. Symptoms have improved. tw4
[2019-04-14 04:56] VITALS: BP 110/72; TEMP 98.9; O2SAT 99
--- NOTE | 2019-04-14 06:35 | EKG ---
Test Date: 2019-04-14 Test Time: 02:11:04 World Designer: DENNISE MEASUREMENT RESULTS: Intervals: Rate: 96 MS: 148 QRSD: 86 QT: 346 QTc: 437 [place]: P: 74 MS: 148 QRS: 54 T: 86 INTERPRETIVE STATEMENTS: Normal sinus rhythm Low voltage QRS Borderline ECG Compared to ECG 04/02/2014 19:58:30 Low QRS voltage now present Sinus arrhythmia no longer present Myocardial infarct finding no longer present Electronically Signed On 04-14-19 06:34:52 OIL SPOT WASHER by Sylvain Adams
--- NOTE | 2019-04-14 07:55 | RAD REPORT ---
EXAM DESCRIPTION: Alex Single View04/14/2019 2:30 am CLINICAL HISTORY: Chest pain COMPARISON: none FINDINGS: The lungs appear clear of acute infiltrate. The heart is normal size IMPRESSION: No acute abnormalities displayed
--- NOTE | 2019-04-14 11:04 | RAD REPORT ---
EXAM DESCRIPTION: CT - Head Brain Wo Cont - 04/14/2019 4:57 am CLINICAL HISTORY: The patient is 39 years old and is Female; SYNCOPE TECHNIQUE: Axial computed tomography images of the head/brain without intravenous contrast. Sagitt al and coronal reformatted images were created and reviewed. This CT exam was performed using one o r more of the following dose reduction techniques: automated exposure control, adjustment of the mA and/or kV according to patient size, and/or use of iterative reconstruction technique. COMPARISON: No relevant prior studies available. FINDINGS: BRAIN: Unremarkable. The jaimes-white matter differentiation is preserved . No hemorrhag e. No significant white matter disease. No edema. No extra-axial fluid collections. VENTRICLES: Unremarkable. No ventriculomegaly. BONES/JOINTS: No acute fracture. SOFT TISSUES: Unremarkable. SINUSES: Unremarkable as visualized. No acute sinusitis. MASTOID AIR CELLS: Unremarkable as visualized. No mastoid effusion. ORBITS: Unremarkable as visualized. IMPRESSION: No acute intracranial findings. Electronically signed by: Babita Jamison MD 04/14/2019 3:12 AM BANK CASHIER Due to temporary technical issues with the PACS/Fluency reporting system, reports are being signed by the in house radiologist as a courtesy to ensure prompt reporting. The interpreting radiologist is f ully responsible for the content of the report.
== END 2019-04-14 04:42 | disposition home or self-care (01) ==
LOC: ER 01:50
DX: R55 Syncope and collapse (principal); I10 Essential (primary) hypertension; F17.210 Nicotine dependence, cigarettes, uncomplicated; Z88.0 Allergy status to penicillin; Z88.1 Allergy status to other antibiotic agents
CPT/HCPCS: 36415; 70450; 71045; 80048; 80076; 81003; 83735; 83880; 83930; 83935; 84484; 84703; 85025; 85610; 93005; 99285

== ENCOUNTER 2019-04-16 00:06 | Observation (INO) | payer SELFPAY ==
--- OUTSIDE RECORDS SUMMARY | 2019-04-16 00:08 | XMS REPORT ---
:1980 Author Organization [facility] Address [address] [place] [id number] Care Team Providers Name Role Phone Unavailable Unavailable Unavailable Problems This patient has no known problems. Allergies, Adverse Reactions, Alerts This patient has no known allergies or adverse reactions. Medications This patient has no known medications.
[2019-04-16] MEDS ORDERED: ASPIRIN 81 MG CHEWABLE TABLET ONE ×2 (01:10→09:47)
[2019-04-16] MEDS ORDERED: NA CHLORIDE 0.9% 1,000 ML ONE ×2 (01:11→05:40)
[2019-04-16] MEDS ORDERED: FOLIC ACID 5 MG/ML VIAL ONE (01:12)
[2019-04-16 01:31] LABS: Protime INR 1.06
[2019-04-16 01:32] LABS: Absolute Lymphocytes (CBC) 3.7 K/uL (0.7-4.9); Basophils % 0.5 % (0-1.3); Hematocrit 42.9 % (36.0-45.0); MPV 9.1 fL (7.6-11.3); RBC Red Blood Cell Count 4.64 M/uL (3.86-4.86)
[2019-04-16 01:45] LABS: ALT/SGPT 16 U/L (12-78); AST/SGOT 14 U/L (15-37); Albumin 3.7 g/dL (3.4-5.0); Alkaline Phosphatase 86 U/L (45-117); BUN Blood Urea Nitrogen 10 mg/dL (7-18); Bicarbonate 29 mmol/L (21-32); Bilirubin Direct 0.1 mg/dL (0-0.2); Bilirubin Total 0.3 mg/dL (0.2-1.0); Glucose Level 90 mg/dL (74-106); Magnesium 1.9 mg/dL (1.8-2.4); NT PRO-BNP 34 pg/mL (<125); Potassium 3.8 mmol/L (3.5-5.1); Protein, Total 7.2 g/dL (6.4-8.2); Sodium Level 140 mmol/L (136-145); Troponin (Emerg Dept Use Only) < 0.02 ng/mL (0.0-0.045)
--- NOTE | 2019-04-16 02:14 | ER ---
Nurse's Notes [facility] Name: Maonlo Cotter Age: 39 yrs Sex: Female : 1980 Arrival Date: 04/16/2019 Time: 00:08 Bed 17 Private MD: Diagnosis: Weakness;Paresthesia of skin Presentation: 04/16 00:27 Presenting complaint: Patient states: She was here for seizure like activity on Friday, was discharged and told to follow up with Neurologist. Pt now with C/O weakness and numbness on left side of body. Pt states she feels like she needs to drag her left leg. Transition of care: patient was not received from another setting of care. Onset of symptoms was April 16, 2019. Risk Assessment: Do you want to hurt yourself or someone else? Patient reports no desire to harm self or others. Initial Sepsis Screen: Does the patient meet any 2 criteria? No. Patient's initial sepsis screen is negative. Does the patient have a suspected source of infection? No. Patient's initial sepsis screen is negative. Care prior to arrival: None. 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 - Coronavirus screen:: The patient has NOT traveled to [place], [place], or [place] in the past 14 days. - Social history:: Smoking status: Patient reports the use of cigarette tobacco products, denies chronic smoking, but will smoke occasionally. - Ebola Screening: : Patient negative for fever greater than or equal to 101.5 degrees Fahrenheit, and additional compatible Ebola Virus Disease symptoms Patient denies exposure to infectious person. Screenin:31 Abuse screen: Denies threats or abuse. Denies injuries from another. Nutritional screening: No deficits noted. Tuberculosis screening: No symptoms or risk factors identified. Fall Risk None identified. 00:33 VAN Screening: Arm Drift: Patient shows no arm weakness. Patient is VAN negative. Visual Disturbance: No visual disturbance noted. Aphasia: No aphasia noted. Neglect: No neglect noted. Assessment: 00:31 General: Appears in no apparent distress. Behavior is calm, cooperative, appropriate wh for age. Pain: Denies pain. Neuro: Level of Consciousness is awake, alert, obeys commands, Oriented to person, place, time, situation, Appropriate for age Rides Supervisor are equal bilaterally Moves all extremities. Gait is steady, Speech is normal, Facial symmetry appears normal, Pupils are PERRLA, Reports numbness weakness in LEFT SIDE OF BODY. Cardiovascular: Heart tones S1 S2. Respiratory: Airway is patent Respiratory effort is even, unlabored, Respiratory pattern is regular, symmetrical. GI: Abdomen is flat, non-distended. : No signs and/or symptoms were reported regarding the genitourinary system. EENT: No signs and/or symptoms were reported regarding the EENT system. Derm: Skin is intact, is healthy with good turgor, Skin is pink, warm \T\ dry. normal. Musculoskeletal: Circulation, motion, and sensation intact. 01:45 Reassessment: Patient appears in no apparent distress at this time. No changes from previously documented assessment. Patient and/or family updated on plan of care and expected duration. Pain level reassessed. Patient is alert, oriented x 3, equal unlabored respirations, skin warm/dry/pink. 03:00 Reassessment: Patient appears in no apparent distress at this time. Patient and/or aa1 family updated on plan of care and expected duration. Pain level reassessed. Patient is alert, oriented x 3, equal unlabored respirations, skin warm/dry/pink. Pt to be admitted to ER hold. Vital Signs: 00:30 BP 135 / 96; Pulse 91; Resp 18; Temp 97.8; Pulse Ox 99% ; Weight 81.65 kg; Height 5 ft. 2 in. (157.48 cm); 01:45 BP 139 / 102; Pulse 82; Resp 18; Pulse Ox 99% on R/A; 03:00 BP 107 / 84; Pulse 76; Resp 18; Temp 97.9; Pulse Ox 97% on R/A; Pain 0/10; aa1 00:30 Body Mass Index 32.92 (81.65 kg, 157.48 cm) NIH Stroke Scale Scores: 00:33 NIHSS Score: 0 00:56 NIHSS Score: 0 la1 ED Course: 00:08 Patient arrived in ED. ds1 00:15 Manas Ugarte is Primary Nurse. 00:29 Triage completed. 00:31 Patient has correct armband on for positive identification. Bed in low position. Call light in reach. Side rails up X 1. Pulse ox on. NIBP on. 00:32 Arm band placed on right wrist. 00:40 Mando Kinney FNP-C is PHCP. la1 00:40 Seth Riley MD is Attending Physician. la1 02:14 Issac Bennett MD is Hospitalizing Provider. la1 03:00 No provider procedures requiring assistance completed. Patient admitted, IV remains in aa1 place. 03:16 Head Brain Wo Cont In Process Unspecified. EDMS Administered Medications: 01:10 Drug: Aspirin Chewable Tablet 324 mg Route: PO; 01:46 Follow up: Response: No adverse reaction 01:12 Drug: foLIC Acid 1 mg Route: IVPB; Site: right antecubital; 01:46 Follow up: Response: No adverse reaction; IV Status: Completed infusion 01:14 Drug: NS 0.9% 1000 ml Route: IV; Rate: 100 ml/hr; Site: right antecubital; 01:46 Follow up: Response: No adverse reaction; IV Status: Completed infusion Outcome: 02:14 Decision to Hospitalize by Provider. la1 03:00 Admitted to ER Hold. Please see [facility] for further documentation. aa1 03:00 Condition: good 03:00 Instructed on the need for admit, Demonstrated understanding of instructions. 15:42 Patient left the ED. NIH Stroke Scale - NIH Stroke Score Date: 04/16/2019 Time: 00:33 Total Score = 0 1a. Level of Consciousness (LOC) - 0(Alert) 1b. Level of Consciousness (LOC) (Year \T\ Age) - 0(Both) 1c. LOC Commands (Open \T\ Closes Eyes/Miter Cutter) - 0(Both) 2. Best Gaze (Lateral Gaze Paresis) - 0(Normal) 3. Visual Field Loss - 0(No visual loss) 4. Facial Palsy - 0(Normal) 5a. Left Arm: Motor (10-second hold) - 0(No drift) 5b. Right Arm: Motor (10-second hold) - 0(No drift) 6a. Left Leg: Motor (5-second hold - always test supine) - 0(No drift) 6b. Right Leg: Motor (5-second hold - always test supine) - 0(No drift) 7. Limb Ataxia (finger/nose \T\ heel/eubanks - test with eyes open) - 0(Absent) 8. Sensory Loss (pinprick arms/legs/face) - 0(Normal) 9. Best Language: Aphasia (description/naming/reading) - 0(No aphasia) 10. Dysarthria (speech clarity - read or repeat words) - 0(Normal) 11. Extinction and Inattention (visual/tactile/auditory/spatial/personal) - 0(No abnormality) Initials: NIH Stroke Scale - NIH Stroke Score Date: 04/16/2019 Time: 00:56 Total Score = 0 1a. Level of Consciousness (LOC) - 0(Alert) 1b. Level of Consciousness (LOC) (Year \T\ Age) - 0(Both) 1c. LOC Commands (Open \T\ Closes Eyes/Miter Cutter) - 0(Both) 2. Best Gaze (Lateral Gaze Paresis) - 0(Normal) 3. Visual Field Loss - 0(No visual loss) 4. Facial Palsy - 0(Normal) 5a. Left Arm: Motor (10-second hold) - 0(No drift) 5b. Right Arm: Motor (10-second hold) - 0(No drift) 6a. Left Leg: Motor (5-second hold - always test supine) - 0(No drift) 6b. Right Leg: Motor (5-second hold - always test supine) - 0(No drift) 7. Limb Ataxia (finger/nose \T\ heel/eubanks - test with eyes open) - 0(Absent) 8. Sensory Loss (pinprick arms/legs/face) - 0(Normal) 9. Best Language: Aphasia (description/naming/reading) - 0(No aphasia) 10. Dysarthria (speech clarity - read or repeat words) - 0(Normal) 11. Extinction and Inattention (visual/tactile/auditory/spatial/personal) - 0(No abnormality) Initials: la1 Signatures: Dispatcher [employer] EDMS Elsa Blakely RN RN aa1 Jo Maria ds1 Angelina Murillo, RN RN ss Mando Kinney, EVENTS TRAFFIC CONTROLLER-C EVENTS TRAFFIC CONTROLLER-Cla1 Manas Ugarte
--- NOTE | 2019-04-16 02:15 | EDPHYS ---
Physician Documentation [facility] Name: Manolo Cotter Age: 39 yrs Sex: Female : 1980 Arrival Date: 04/16/2019 Time: 00:08 Bed 17 Private MD: ARMIN Physician Seth Riley HPI: 04/16 00:59 This 39 yrs old Female presents to ER via Ambulatory with complaints of L la1 Side Numbness, Dizziness. 00:59 The patient's problem is reported as paresthesias, in left upper extremity, in left la1 lower extremity, in left side of face. Onset: The symptoms/episode began/occurred 2 day(s) ago. Duration: The episodes are intermittent, lasting 15 minute(s). Context: occurred at home. The symptoms are alleviated by nothing. The symptoms are aggravated by nothing. Associated signs and symptoms: Pertinent negatives: abdominal pain, chest pain, combativeness, confusion, diaphoresis, diarrhea, headache, lightheadedness, palpitations, seizure. Severity of symptoms: At their worst the symptoms were moderate. Patient's baseline: Neuro: alert and fully oriented, Motor: no deficits, Ambulation: walks without assistance, Speech: normal. The patient has not experienced similar symptoms in the past. 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 - Coronavirus screen:: The patient has NOT traveled to [place], [place], or [place] in the past 14 days. - Social history:: Smoking status: Patient reports the use of cigarette tobacco products, denies chronic smoking, but will smoke occasionally. - Ebola Screening: : Patient negative for fever greater than or equal to 101.5 degrees Fahrenheit, and additional compatible Ebola Virus Disease symptoms Patient denies exposure to infectious person. ROS: 00:57 Constitutional: Negative for fever, chills, and weight loss, Eyes: Negative for injury, la1 pain, redness, and discharge, ENT: Negative for injury, pain, and discharge, Neck: Negative for injury, pain, and swelling, Cardiovascular: Negative for chest pain, palpitations, and edema, Respiratory: Negative for shortness of breath, cough, wheezing, and pleuritic chest pain, Abdomen/GI: Negative for abdominal pain, nausea, vomiting, diarrhea, and constipation, Back: Negative for injury and pain, : Negative for injury, bleeding, discharge, and swelling, MS/Extremity: Negative for injury and deformity, Skin: Negative for injury, rash, and discoloration. 00:57 Neuro: Positive for paresthesias to the left side of her body intermittently, subjective weakness of left leg intermittently. . Exam: 00:56 Constitutional: This is a well developed, well nourished patient who is awake, alert, la1 and in no acute distress. Head/Face: Normocephalic, atraumatic. Eyes: Pupils equal round and reactive to light, extra-ocular motions intact. Lids and lashes normal. Conjunctiva and sclera are non-icteric and not injected. Cornea within normal limits. Periorbital areas with no swelling, redness, or edema. ENT: Oropharynx with no redness, swelling, or masses, exudates, or evidence of obstruction, uvula midline. Mucous membranes moist. Neck: Trachea midline, neck Supple, full range of motion without nuchal rigidity, or vertebral point tenderness. No Meningismus. Chest/axilla: Normal chest wall appearance and motion. Nontender with no deformity. No lesions are appreciated. Cardiovascular: Regular rate and rhythm with a normal S1 and S2. No gallops, murmurs, or rubs. Normal PMI, no JVD. No pulse deficits. Respiratory: Lungs have equal breath sounds bilaterally, clear to auscultation and percussion. No rales, rhonchi or wheezes noted. No increased work of breathing. Abdomen/GI: Soft, non-tender, with normal bowel sounds. Back: No spinal tenderness. No costovertebral tenderness. Full range of motion. Skin: Warm, dry with normal turgor. Normal color with no rashes, no lesions, and no evidence of cellulitis. MS/ Extremity: Pulses equal, no cyanosis. Neurovascular intact. Full, normal range of motion. Neuro: Awake and alert, GCS 15, oriented to person, place, time, and situation. Cranial nerves II-XII grossly intact. Motor strength 5/5 in all extremities. Sensory grossly intact. Cerebellar exam normal. Normal gait. 02:41 Neuro: Orientation: is normal, Mentation: is normal, lucid, able to follow commands, la1 Memory: is normal, Cranial nerves: CN II- XII are normal as tested, visual stringer are intact. extraocular movements are intact, Facial palsy and sensory deficits are absent. Cerebellar function: is grossly normal, normal finger to nose testing, Motor: is normal, no acute changes, moves all fours, strength is 5/5 in all extremities, Sensation: is normal, light touch is decreased in the left leg, Gait: is steady, at a normal pace. Vital Signs: 00:30 BP 135 / 96; Pulse 91; Resp 18; Temp 97.8; Pulse Ox 99% ; Weight 81.65 kg; Height 5 ft. 2 in. (157.48 cm); 01:45 BP 139 / 102; Pulse 82; Resp 18; Pulse Ox 99% on R/A; 03:00 BP 107 / 84; Pulse 76; Resp 18; Temp 97.9; Pulse Ox 97% on R/A; Pain 0/10; aa1 00:30 Body Mass Index 32.92 (81.65 kg, 157.48 cm) NIH Stroke Scale Scores: 00:33 NIHSS Score: 0 00:56 NIHSS Score: 0 la1 MDM: 00:40 Patient medically screened. la1 02:11 Differential diagnosis: CVA, TIA, metabolic disorder, drug effects. Data reviewed: la1 vital signs, nurses notes, lab test result(s), EKG, radiologic studies, I have discussed the patient's presentation/case with the attending Emergency Department Physician; and as a result, I will admit patient. Data interpreted: Pulse oximetry: on room air is 99 %. Interpretation: normal. Counseling: I had a detailed discussion with the patient and/or guardian regarding: the historical points, exam findings, and any diagnostic results supporting the discharge/admit diagnosis, the presence of at least one elevated blood pressure reading (>120/80) during this emergency department visit, lab results, radiology results, the need for further work-up and treatment in the hospital. Physician consultation: Issac Bennett MD was called at 02:12, was contacted at 02:12, regarding admission, and will see patient would like further tests performed, CT scan. 04/16 00:53 Order name: Basic Metabolic Panel; Complete Time: 02:04 04/16 00:53 Order name: CBC with Diff; Complete Time: 01:39 04/16 00:53 Order name: LFT's; Complete Time: 02:04 04/16 00:53 Order name: Magnesium; Complete Time: 02:04 04/16 00:53 Order name: NT PRO-BNP; Complete Time: 02:04 04/16 00:53 Order name: PT-INR; Complete Time: 01:39 04/16 00:53 Order name: Troponin (emerg Dept Use Only); Complete Time: 02:04 04/16 01:22 Order name: Urine Dipstick--Ancillary (enter results) [facility] 04/16 01:22 Order name: Urine --Ancillary (enter results) [facility] 04/16 04:56 Order name: Urine --Ancillary [facility] 04/16 04:56 Order name: Urine Dipstick-Ancillary [facility] 04/16 14:41 Order name: Sedimentation Rate, Westergren [facility] 04/16 15:17 Order name: C-Reactive Protein [facility] 04/16 15:17 Order name: Folic Acid, (Folate) [facility] 04/16 00:53 Order name: EKG; Complete Time: 00:54 04/16 02:12 Order name: CT Head Brain wo Cont bb 04/16 02:58 Order name: Head Brain Wo Cont [facility] 04/16 03:19 Order name: CONS Physician Consult [facility] 04/16 03:19 Order name: Physical Therapy Consult [facility] 04/16 03:19 Order name: Speech Therapy Consult [facility] 04/16 03:19 Order name: Echo with Doppler [facility]NY 04/16 03:19 Order name: Stroke Protocol [facility] 04/16 09:00 Order name: MRI [facility] 04/16 09:23 Order name: MRI [facility] 04/16 09:25 Order name: MRI [facility] 04/16 09:44 Order name: MRI [facility] 04/16 15:17 Order name: Vitamin B12 Level [facility] 04/16 00:53 Order name: Cardiac monitoring; Complete Time: 01:20 04/16 00:53 Order name: EKG - Nurse/Tech; Complete Time: :04/16 00:53 Order name: IV Saline Lock; Complete Time: 04/16 00:53 Order name: Labs collected and sent; Complete Time: 04/16 00:53 Order name: O2 Per Protocol; Complete Time: 04/16 00:53 Order name: O2 Sat Monitoring; Complete Time: Administered Medications: 01:10 Drug: Aspirin Chewable Tablet 324 mg Route: PO; :46 Follow up: Response: No adverse reaction 01:12 Drug: foLIC Acid 1 mg Route: IVPB; Site: right antecubital; :46 Follow up: Response: No adverse reaction; IV Status: Completed infusion 01:14 Drug: NS 0.9% 1000 ml Route: IV; Rate: 100 ml/hr; Site: right antecubital; :46 Follow up: Response: No adverse reaction; IV Status: Completed infusion Disposition: 04/16/19 02:14 Hospitalization ordered by Issac Bennett for Observation. Preliminary diagnosis are Weakness, Paresthesia of skin. - Bed requested for [facility] ER HOLD. - Status is Observation. ss - Condition is Stable. - Problem is new. - Symptoms are unchanged. UTI on Admission? No NIH Stroke Scale - NIH Stroke Score Date: 04/16/2019 Time: 00:33 Total Score = 0 1a. Level of Consciousness (LOC) - 0(Alert) 1b. Level of Consciousness (LOC) (Year \T\ Age) - 0(Both) 1c. LOC Commands (Open \T\ Closes Eyes/Reserve Officer) - 0(Both) 2. Best Gaze (Lateral Gaze Paresis) - 0(Normal) 3. Visual Field Loss - 0(No visual loss) 4. Facial Palsy - 0(Normal) 5a. Left Arm: Motor (10-second hold) - 0(No drift) 5b. Right Arm: Motor (10-second hold) - 0(No drift) 6a. Left Leg: Motor (5-second hold - always test supine) - 0(No drift) 6b. Right Leg: Motor (5-second hold - always test supine) - 0(No drift) 7. Limb Ataxia (finger/nose \T\ heel/eubanks - test with eyes open) - 0(Absent) 8. Sensory Loss (pinprick arms/legs/face) - 0(Normal) 9. Best Language: Aphasia (description/naming/reading) - 0(No aphasia) 10. Dysarthria (speech clarity - read or repeat words) - 0(Normal) 11. Extinction and Inattention (visual/tactile/auditory/spatial/personal) - 0(No abnormality) Initials: NIH Stroke Scale - NIH Stroke Score Date: 04/16/2019 Time: 00:56 Total Score = 0 1a. Level of Consciousness (LOC) - 0(Alert) 1b. Level of Consciousness (LOC) (Year \T\ Age) - 0(Both) 1c. LOC Commands (Open \T\ Closes Eyes/Reserve Officer) - 0(Both) 2. Best Gaze (Lateral Gaze Paresis) - 0(Normal) 3. Visual Field Loss - 0(No visual loss) 4. Facial Palsy - 0(Normal) 5a. Left Arm: Motor (10-second hold) - 0(No drift) 5b. Right Arm: Motor (10-second hold) - 0(No drift) 6a. Left Leg: Motor (5-second hold - always test supine) - 0(No drift) 6b. Right Leg: Motor (5-second hold - always test supine) - 0(No drift) 7. Limb Ataxia (finger/nose \T\ heel/eubanks - test with eyes open) - 0(Absent) 8. Sensory Loss (pinprick arms/legs/face) - 0(Normal) 9. Best Language: Aphasia (description/naming/reading) - 0(No aphasia) 10. Dysarthria (speech clarity - read or repeat words) - 0(Normal) 11. Extinction and Inattention (visual/tactile/auditory/spatial/personal) - 0(No abnormality) Initials: la1 Addendum: 04/19/2019 07:00 Co-signature as Attending Physician, Seth Riley MD I agree with the [facility] assessment and plan of care. Signatures: Dispatcher [employer] Seth Cook MD MD cha Ballard, Brenda, RN RN Angelina Granados RN RN ss Mando Kinney, MEDICAL RESEARCH SCIENTIST-C MEDICAL RESEARCH SCIENTIST-Cla1 Manas Ugarte Corrections: (The following items were deleted from the chart) 04/16 02:56 02:14 Hospitalization Ordered by Issac Bennett MD for Observation. Preliminary bb diagnosis is Weakness; Paresthesia of skin. Bed requested for Telemetry/MedSurg (Inpatient). Status is Observation. Condition is Stable. Problem is new. Symptoms are unchanged. UTI on Admission? No. la1 15:42 02:56 04/16/2019 02:14 Hospitalization Ordered by Issac Bennett MD for ss Observation. Preliminary diagnosis is Weakness; Paresthesia of skin. Bed requested for [facility] ER HOLD. Status is Observation. Condition is Stable. Problem is new. Symptoms are unchanged. UTI on Admission? No. bb
[2019-04-16] MEDS ORDERED: ACETAMINOPHEN 500 MG TAB PO PRN (03:12)
[2019-04-16] MEDS ORDERED: ONDANSETRON 4 MG/2 ML VIAL IV PRN (03:12)
[2019-04-16] MEDS ORDERED: NA CHLORIDE 0.9% 1,000 ML IV SCH (04:00)
[2019-04-16 04:56] LABS: Urine Blood NEGATIVE (NEG); Urine Glucose NEGATIVE (NEG); Urine Protein NEGATIVE (NEG)
[2019-04-16 06:23] VITALS: BMI 32.9
[2019-04-16] MEDS ORDERED: INFLUENZA VACCINE (for 3y+) 0.5 ML DOSE IMVAC ONE ×2 (08:00→09:48)
--- NOTE | 2019-04-16 08:59 | RAD REPORT ---
EXAM DESCRIPTION: MRI - MRA Head Wo Cont - 04/16/2019 8:38 am CLINICAL HISTORY: Left-sided numbness, paresthesias, stroke-like symptoms COMPARISON: CT head same date TECHNIQUE: Axial and coronal 3D [id number] image acquisition was performed. 3D rotational images were generated with source and reconstruction images reviewed. Horizontal and vertical axis rotation al views generated using MIP protocol. FINDINGS: No aneurysm or vascular malformation. The vertebral artery is dominant. Very small right vertebral artery is seen. No vertebral or basilar disease seen. No suspicious finding in the posterior cerebral artery distributions. Distal portions of each internal carotid artery show no dissection, stenosis or significant vascular disease. The anterior and middle cerebral artery distributions also without significant disease. No v asculitis findings. IMPRESSION: Unremarkable MRA head examination.
[2019-04-16] MEDS ORDERED: CLOPIDOGREL 75 MG TABLET PO SCH (09:00)
[2019-04-16] MEDS ORDERED: ASPIRIN EC 81 MG TAB PO SCH (09:00)
[2019-04-16] MEDS ORDERED: ENOXAPARIN 40 MG/0.4 ML SQ SCH (09:00)
--- NOTE | 2019-04-16 09:20 | RAD REPORT ---
EXAM DESCRIPTION: MRI - MRA Neck W/Wo Cont - 04/16/2019 9:09 am CLINICAL HISTORY: Paresthesia, stroke-like symptoms COMPARISON: MRI brain same date, MRA head same date, CT head April 14 TECHNIQUE: MR angiography of the cervical vasculature performed. Coronal imaging plane acquisition u tilized. A 20 MultiHance contrast volume was utilized. Coronal reformatted images were generated and reviewed. Vertical axis 3D rotational projections obtained using maximum intensity projection protoco l. FINDINGS: Aortic arch is 3 vessel configuration with no origins stenoses. Left vertebral artery is d ominant. No vertebral artery origin abnormality seen. The bilateral common carotid, internal carotid and vertebral arteries show no dissection, stenosis or vasculitis findings. No focal or diffuse process seen. IMPRESSION: MRA neck imaging showing no significant or suspicious finding.
--- NOTE | 2019-04-16 09:25 | RAD REPORT ---
EXAM DESCRIPTION: MRI - Brain W/Wo Cont - 04/16/2019 9:10 am CLINICAL HISTORY: Paresthesias, stroke-like symptoms COMPARISON: CT head April 16 TECHNIQUE: Sagittal and axial T1-weighted images were obtained. Axial PD/heavily T2-weighted and T2- FLAIR images were obtained along with axial DWI/ADC mapping sequences. Coronal heavily T2 weighted s equence obtained. Axial and coronal post-contrast T1-weighted images were also obtained. A 20 ml Mul tihance contrast following utilized. FINDINGS: No intracranial hemorrhage, mass or acute infarction. There is no edema or shift of midli ne structures. No extra-axial fluid collections. [place]-matter/white matter junction is preserved. Sig nal voids are seen as a normal finding in the major intracranial vessels. Ventricles are normal. No v olume loss changes present. T2/IR sequencing shows a few punctate areas of hyperintense signal in the cerebral white matter. Basal ganglia, thalamus, brainstem and cerebellum tissues are spared of this signal pattern. There is no associated enhancement. Post-contrast images show normal enhancement. No dural thickening. Mastoid air cells and paranasal sinuses are clear. No sella or supra sella abnormality. No globe or orbital content abnormality identifiable. IMPRESSION: No infarction, mass or acute intracranial finding identified. Punctate nonenhancing signal abnormalities in the cerebral white matter are present and nonspecific. Chronic ischemic change would not be suspected in a patient this age. Vasculitis, migraine headache a nd demyelinization etiologies are possible and need correlation with clinical presentation.
--- NOTE | 2019-04-16 09:42 | RAD REPORT ---
EXAM DESCRIPTION: MRI - C Spine Wo Cont - 04/16/2019 8:56 am CLINICAL HISTORY: Paresthesias on the left/ COMPARISON: SPINE CERVICAL AP LAT dated 12/02/2008 TECHNIQUE: Sagittal T1-weighted, T2-weighted and T2-STIR sequences were obtained as well as T2 medic sequence. FINDINGS: Cervical vertebral bodies are normal in height and alignment. No suspicious marrow edema o r marrow replacing process. No paraspinal mass. Cerebellar tonsils and mid-line skull base show no suspicious finding. No significant finding at the C1 and C2 levels. 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 C2-3 level: Mild thickening along the posterior longitudinal ligament. Minimal disc bulge present. Mi dline canal diameter is 10 mm. C3-4 level: Minimal disc bulge and posterior longitudinal ligament thickening partially attenuate the anterior subarachnoid space. Midline canal is 9 mm. No significant foraminal encroachment. C4-5 level: Small midline disc herniation is present measuring 2 mm AP x 6 mm TR. This contacts and f lattens the anterior contour the cord. Canal diameter is 8-9 mm. No significant foraminal encroachmen t. C5-6 level: No significant disc finding. Congenital canal diameter is 9-10 mm. C6-7 level: Midline disc herniation is present measuring 2.5 mmAP x 8mm transverse. There is contact and flattening of the cord. Midline canal diameter is 8 mm. C7-T1 level: No significant findings. No cervical cord signal abnormalities. No expansile change or mass. IMPRESSION: Small midline disc herniations are present at C4-5 and C6-7. There is cord flattening and central spinal stenosis at both of these levels. This patient had a base line congenitally small central canal. Additional borderline to mild spinal stenosis changes elsewhere in the cervical spine as detailed. No cord signal abnormality. No mass or expansile change of the cord.
[2019-04-16] MEDS ORDERED: CLOPIDOGREL 75 MG TABLET ONE (09:48)
[2019-04-16] MEDS ORDERED: ENOXAPARIN 40 MG/0.4 ML SQ ONE (09:48)
[2019-04-16 10:28] VITALS: TEMP 97.8
--- NOTE | 2019-04-16 11:03 | RAD REPORT ---
EXAM DESCRIPTION: CT - Head Brain Wo Cont - 04/16/2019 3:41 am CLINICAL HISTORY: WEAKNESS TECHNIQUE: Contiguous axial CT images obtained through the brain without IV contrast. Coronal and sa gittal reformatted images were provided. This exam was performed according to our departmental dose-optimization program, which includes autom ated exposure control, adjustment of the mA and/or kV according to patient size and/or use of iterati ve reconstruction technique. COMPARISON: 04/14/2019 FINDINGS: Brain: No significant white matter changes. No focal mass effect. [place]-white matter differ entiation is within normal limits. No hemorrhage. Ventricles: No ventriculomegaly or midline shift. Extra-axial spaces: No extra-axial collection or hemorrhage. Paranasal sinuses and mastoid air cells: Well-aerated Vessels: Unremarkable Bones: Unremarkable Soft tissues: Stable 1.3 cm left posterior parietal soft tissue nodule suggestive of a sebaceous cyst . IMPRESSION: No acute intracranial or extra-axial abnormality. Electronically signed by: Kaye Berman MD 04/16/2019 3:29 AM PET CARE ASSISTANT Due to temporary technical issues with the PACS/Fluency reporting system, reports are being signed by the in house radiologist as a courtesy to ensure prompt reporting. The interpreting radiologist is f ully responsible for the content of the report.
--- NOTE | 2019-04-16 12:25 | P.HP ---
Certification for Inpatient Patient admitted to: Observation With expected LOS: <2 Midnights Patient will require the following post-hospital care: None Practitioner: I am a practitioner with admitting privileges, knowledge of patient current condition, hospital course, and medical plan of care. Services: Services provided to patient in accordance with Admission requirements found in Title 42 Section 412.3 of the Code of Federal Regulations Patient History Date of Service: 04/16/19 Reason for admission: LEFT-SIDED PARESTHESIAS History of Present Illness: PATIENT IS A 39-YEAR-OLD WHITE MALE WHO CAME TO THE HOSPITAL AND PARESTHESIAS TO THE LEFT SIDE OF HER BODY. HAS BEEN GOING ON FOR LAST FEW DAYS. IT IS MORE NOTICEABLE HER SYMPTOMS HAVE GOTTEN WORSE. SHE CAME TO THE ER A COUPLE OF DAYS AGO AND WAS DISCHARGED HOME. HER SYMPTOMS HAVE GOTTEN WORSE. HE CAME BACK TO THE ER AFTER SHE SAW HER PCP WHO RECOMMENDED MEDICATION FOR NEUROPATHY. IN THE ER HER CT SCAN WAS NEGATIVE. SHE WILL GET ADMITTED FOR AN MRI OF THE BRAIN. SHE ALSO NEEDS A CERVICAL SPINE MRI. WE HAVE A NEUROLOGY CONSULTATION WELL Allergies levofloxacin [From Levaquin] Allergy (Verified 04/16/19 06:23) Unknown Penicillins Allergy (Verified 04/16/19 06:23) Unknown Home Medications: atenoloL [Atenolol] 1 tab PO DAILY 04/16/19 - Past Medical/Surgical History Diabetic: No -: HTN -: carpal tunnel - Family History Father Family History: Reviewed- Non-Contributory - Social History Smoking Status: Current every day smoker Alcohol use: Yes CD- Drugs: No Place of Residence: Home Review of Systems 10-point ROS is otherwise unremarkable Physical Examination - Vital Signs Temperature: 97.8 F Blood Pressure: 139/84 Pulse: 78 Respirations: 15 Pulse Ox (%): 100 - Physical Exam General: Alert, In no apparent distress, Oriented x3 HEENT: Atraumatic, PERRLA, Mucous membr. moist/pink, EOMI, Sclerae nonicteric Neck: Supple, 2+ carotid pulse no bruit, No LAD, Without JVD or thyroid abnormality Respiratory: Clear to auscultation bilaterally, Normal air movement Cardiovascular: Regular rate/rhythm, Normal S1 S2, No murmurs Gastrointestinal: Normal bowel sounds, Soft and benign, Non-distended, No tenderness Musculoskeletal: No clubbing, No swelling, No tenderness Integumentary: No rashes Neurological: Normal gait, Normal speech, Normal strength at 5/5 x4 extr, Normal tone, Sensation intact, Cranial nerves 3-12 intact, Normal affect Lymphatics: No axilla or inguinal lymphadenopathy - Studies Laboratory Data (last 24 hrs) 04/16/19 01:07: PT 12.5, INR 1.06 04/16/19 01:07: WBC 11.3 H D, Hgb 14.5, Hct 42.9, Plt Count 225 04/16/19 01:07: Sodium 140, Potassium 3.8, BUN 10, Creatinine 0.79, Glucose 90, Magnesium 1.9, Total Bilirubin 0.3, AST 14 L, ALT 16, Alkaline Phosphatase 86 Assessment & Plan - Problems (Diagnosis) (1) Paresthesia of left arm and leg Current Visit: Yes Status: Acute (2) Left facial numbness Current Visit: Yes Status: Acute (3) HTN (hypertension) Current Visit: Yes Status: Acute Qualifiers: Hypertension type: essential hypertension Qualified Code(s): I10 - Essential (primary) hypertension - Plan PLAN: 1. MRI OF THE BRAIN WILL ALSO NEED AN MRI OF THE C-SPINE 2. CHECK NUTRITIONAL LEVELS INCLUDING B12 AND FOLIC ACID 3. NEUROLOGY CONSULTATION 4. SHE MAY NEED EMG FOR FURTHER EVALUATION OF PARESTHESIA 5. START NEURONTIN 300 MG P.O. B.I.D. 6. OUTPATIENT EEG AND NEUROLOGY CONSULTATION 7. GI AND DVT PROPHYLAXIS Discharge Plan: Home Plan to discharge in: 24 Hours - Advance Directives Does patient have a Living Will: No Does patient have a Durable POA for Healthcare: No - Code Status/Comfort Care Code Status Assessed: Yes Code Status: Full Code Critical Care: No Time Spent Managing PTS Care (In Minutes): 45
--- NOTE | 2019-04-16 13:16 | P.DS ---
Discharge Date: 04/16/19 Disposition: ROUTINE DISCHARGE Discharge Condition: GOOD Reason for Admission: LEFT-SIDED PARESTHESIAS - Problems (1) Paresthesia of left arm and leg Status: Acute (2) Left facial numbness Status: Acute (3) HTN (hypertension) Status: Acute Qualifiers: Hypertension type: essential hypertension Qualified Code(s): I10 - Essential (primary) hypertension Brief History of Present Illness: PATIENT IS A 39-YEAR-OLD WHITE MALE WHO CAME TO THE HOSPITAL AND PARESTHESIAS TO THE LEFT SIDE OF HER BODY. HAS BEEN GOING ON FOR LAST FEW DAYS. IT IS MORE NOTICEABLE HER SYMPTOMS HAVE GOTTEN WORSE. SHE CAME TO THE ER A COUPLE OF DAYS AGO AND WAS DISCHARGED HOME. HER SYMPTOMS HAVE GOTTEN WORSE. HE CAME BACK TO THE ER AFTER SHE SAW HER PCP WHO RECOMMENDED MEDICATION FOR NEUROPATHY. IN THE ER HER CT SCAN WAS NEGATIVE. SHE WILL GET ADMITTED FOR AN MRI OF THE BRAIN. SHE ALSO NEEDS A CERVICAL SPINE MRI. WE HAVE A NEUROLOGY CONSULTATION WELL Hospital Course: MRI OF THE BRAIN WAS NEGATIVE. MRI OF THE CERVICAL SPINE DID SHOW SOME FLATTENING OF THE CORD. WE SPOKE WITH DR. NELSON AND HE RECOMMENDED CLOSE OUTPT FOLLOW-UP. PATIENT DOES NOT HAVE INSURANCE BUT IS ON NEUROPATHY MEDS. PATIENT WILL HAVE CLOSE FOLLOW-UP AN OUTPT. Vital Signs/Physical Exam: Temp Pulse Resp BP Pulse Ox 97.8 F 78 15 139/84 100 04/16/19 12:28 04/16/19 12:28 04/16/19 12:28 04/16/19 12:28 04/16/19 12:28 Laboratory Data at Discharge: WBC 11.3 K/uL (4.3-10.9) H D 04/16/19 01:07 Hgb 14.5 g/dL (12.0-15.0) 04/16/19 01:07 Hct 42.9 % (36.0-45.0) 04/16/19 01:07 Plt Count 225 K/uL (152-406) 04/16/19 01:07 PT 12.5 SECONDS (9.5-12.5) 04/16/19 01:07 INR 1.06 04/16/19 01:07 Sodium 140 mmol/L (136-145) 04/16/19 01:07 Potassium 3.8 mmol/L (3.5-5.1) 04/16/19 01:07 BUN 10 mg/dL (7-18) 04/16/19 01:07 Creatinine 0.79 mg/dL (0.55-1.3) 04/16/19 01:07 Glucose 90 mg/dL (74-106) 04/16/19 01:07 Magnesium 1.9 mg/dL (1.8-2.4) 04/16/19 01:07 Total Bilirubin 0.3 mg/dL (0.2-1.0) 04/16/19 01:07 AST 14 U/L (15-37) L 04/16/19 01:07 ALT 16 U/L (12-78) 04/16/19 01:07 Alkaline Phosphatase 86 U/L (45-117) 04/16/19 01:07 Home Medications: Atorvastatin Calcium [Lipitor*] 40 mg PO BEDTIME #30 tab 04/16/19 Folic Acid 0.4 mg PO DAILY #30 tablet 04/16/19 Gabapentin [Neurontin] 200 mg PO BID #60 cap 04/16/19 Lisinopril [Zestril] 20 mg PO DAILY #30 tablet 04/16/19 New Medications: Atorvastatin Calcium [Lipitor*] 40 mg PO BEDTIME #30 tab Folic Acid 0.4 mg PO DAILY #30 tablet Gabapentin [Neurontin] 200 mg PO BID #60 cap Lisinopril [Zestril] 20 mg PO DAILY #30 tablet Patient Discharge Instructions: OK TO DC IV AND DC HOME. FOLLOW-UP WITH PRIMARY CARE PROVIDER IN 1-2 WEEKS. FOLLOW-UP WITH NEUROLOGY, DR. NELSON, AND NEUROSURGERY, DR. GANNON IN 2-4 WEEKS. RETURN TO THE ER IF SYMPTOMS WORSENED. CALL DR. TOMAS AT [phone] IF ANY QUESTIONS REGARDING HOSPITAL STAY. PLEASE CALL THE FLOOR AT [phone] IF ANY MEDICATION OR NURSING QUESTIONS. Diet: Regular Activity: Fall precautions Followup: Von Nelson MD [ASSOCIATE-ACTIVE - CAN ADMIT] - (Follow up in 2-4 weeks. Call to schedule an appointment.)
--- NOTE | 2019-04-16 13:47 | EKG ---
Test Date: 2019-04-16 Test Time: 01:26:01 Drafter Tool Design: PITER MEASUREMENT RESULTS: Intervals: Rate: 74 UT: 158 QRSD: 86 QT: 392 QTc: 435 [place]: P: 41 UT: 158 QRS: 6 T: 19 INTERPRETIVE STATEMENTS: Normal sinus rhythm Low voltage QRS Borderline ECG Compared to ECG 04/14/2019 02:11:04 No significant changes Electronically Signed On 04-16-19 13:45:40 CAR BRACER by Anthony Scott
--- NOTE | 2019-04-16 13:59 | ECHO ---
HEIGHT: 5 ft 2 in WEIGHT: 180 lb 0 oz DATE OF STUDY: 04/16/[address]: Issac Bennett MD 2-DIMENSIONAL: YES M.MODE: YES DOPPLER: YES COLOR FLOW: YES TDS: PORTABLE: DEFINITY: BUBBLE STUDY: DIAGNOSIS: STROKE CARDIAC HISTORY: CATHERIZATION: NO SURGERY: NO PROSTHETIC VALVE: NO PACEMAKER: NO MEASUREMENTS (cm) DIASTOLIC (NORMALS) SYSTOLIC (NORMALS) IVSd 1.0 (0.6-1.2) LA Diam 3.4 (1.9-4.0) LVEF 61% LVIDd 4.0 (3.5-5.7) LVIDs 2.7 (2.0-3.5) %FS 32% LVPWd 1.1 (0.6-1.2) Ao Diam 2.4 (2.0-3.7) 2 DIMENSIONAL ASSESSMENT: RIGHT ATRIUM: NORMAL LEFT ATRIUM: NORMAL RIGHT VENTRICLE: NORMAL LEFT VENTRICLE: NORMAL TRICUSPID VALVE: NORMAL MITRAL VALVE: NORMAL PULMONIC VALVE: NORMAL AORTIC VALVE: NORMAL PERICARDIAL EFFUSION: NONE AORTIC ROOT: NORMAL LEFT VENTRICULAR WALL MOTION: NORMAL DOPPLER/COLOR FLOW: NORMAL COMMENTS: NORMAL 2-DIMENSIONAL ECHOCARDIOGARM WITH DOPPLER. NO WALL MOTION ABNORMALITY. NO EFFUSION. NO THROMBUS. NO VEGETATION. TECHNOLOGIST: JAKE MENCHACA
[2019-04-16] MEDS ORDERED: GABAPENTIN 100 MG CAP PO SCH (14:00)
[2019-04-16 15:09] LABS: Folic Acid, (Folate) 15.7 ng/mL (3.1-17.5)
[2019-04-16 15:16] LABS: C-Reactive Protein < 2.90 mg/L (<3.00)
[2019-04-16 15:44] VITALS: BP 130/84
[2019-04-16 16:07] VITALS: O2SAT 97
[2019-04-16] MEDS ORDERED: ATORVASTATIN 20 MG TAB PO SCH (21:00)
== END 2019-04-16 15:42 | disposition home or self-care (01) ==
LOC: ER 00:06 → ERHOLD 03:43
PROVIDERS: ADMIT Hospitalist; ATTEND Hospitalist
DX: R20.2 Paresthesia of skin (principal); R20.0 Anesthesia of skin; I10 Essential (primary) hypertension; Z23 Encounter for immunization
CPT/HCPCS: 36415; 70450; 70544; 70549; 70553; 72141; 80048; 80061; 80076; 81003; 81025; 82607; 82746; 83735; 83880; 84484; 85025; 85610; 85652; 86140; 90471; 93005; 93306; 96365; 99285; A9577; G0378; J1650; J7030; Q2035

== ENCOUNTER 2019-06-02 12:21 | Emergency (ER) | payer SELFPAY ==
--- OUTSIDE RECORDS SUMMARY | 2019-06-02 12:23 | XMS REPORT ---
:1980 [facility] Address [address] [place] [id number] Care Team Providers Name Role Phone Unavailable Unavailable Unavailable Problems This patient has no known problems. Allergies, Adverse Reactions, Alerts This patient has no known allergies or adverse reactions. Medications This patient has no known medications.
--- NOTE | 2019-06-02 14:25 | RAD REPORT ---
EXAM DESCRIPTION: CT - Head Brain Wo Cont - 06/02/2019 2:12 pm CLINICAL HISTORY: WEAKNESS, intermittent numbness, left-sided neuro symptoms COMPARISON: Head Brain Wo Cont dated 04/16/2019 TECHNIQUE: Axial 5 mm thick images of the head were obtained without IV contrast. All CT scans are performed using dose optimization technique as appropriate and may include automated exposure control or mA/KV adjustment according to patient size. FINDINGS: No intracranial hemorrhage, mass, edema or shift of mid-line structures. No acute infarcti on changes seen. No abnormal extra-axial fluid collections. Ventricles are normal. Small hyperdense m ass in the left parietal scalp soft tissues has not changed. This is not regarded as significant. Mastoid air cells and visualized portions of the paranasal sinuses are clear. No acute bony findings. IMPRESSION: Negative non-contrast CT head examination for acute or significant finding No significant change from April 16
--- NOTE | 2019-06-02 14:55 | EDPHYS ---
Physician Documentation [facility] Name: Manolo Cotter Age: 39 yrs Sex: Female : 1980 Arrival Date: 06/02/2019 Time: 12:58 Bed 14 Private MD: ED Physician Kimo Mcdaniel HPI: 06/01 14:51 This 39 yrs old Female presents to ER via Ambulatory with complaints of la1 Numbness. 14:51 The patient's problem is reported as paresthesias, in left upper extremity, in left la1 lower extremity, in left side of face. 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 Duration: This was a single incident, lasting 5 minute(s). The symptoms are alleviated by nothing. The symptoms are aggravated by nothing. Severity of symptoms: At their worst the symptoms were moderate in the emergency department the symptoms have resolved. The patient has experienced similar episodes in the past. pt sees Dr. Sanchez, has had episodes like this in the past, was placed on topiramate, recently ran out of her RX. . BANQUET PREP COOK: 14:03 unknown ca1 Historical: - Allergies: 13:38 Levaquin; ss 13:38 PENICILLINS; ss - PMHx: 13:38 Hypertension; syncope x1; "mini strokes"; Migraines; ss - Immunization history:: Adult Immunizations up to date. - Social history:: Smoking status: Patient denies any tobacco usage or history of. ROS: 14:52 Constitutional: Negative for fever, chills, and weight loss, Eyes: Negative for injury, la1 pain, redness, and discharge, ENT: Negative for injury, pain, and discharge, Cardiovascular: Negative for chest pain, palpitations, and edema, Respiratory: Negative for shortness of breath, cough, wheezing, and pleuritic chest pain, MS/Extremity: Negative for injury and deformity, Skin: Negative for injury, rash, and discoloration, Neuro: Negative for headache, weakness, numbness, tingling, and seizure. Exam: 14:52 Radiologist reports: no acute findings la1 14:52 Constitutional: This is a well developed, well nourished patient who is awake, alert, and in no acute distress. Eyes: Pupils equal round and reactive to light, extra-ocular motions intact. Lids and lashes normal. Conjunctiva and sclera are non-icteric and not injected. Cornea within normal limits. Periorbital areas with no swelling, redness, or edema. Chest/axilla: Normal chest wall appearance and motion. Nontender with no deformity. No lesions are appreciated. Cardiovascular: Regular rate and rhythm with a normal S1 and S2. No gallops, murmurs, or rubs. Normal PMI, no JVD. No pulse deficits. Respiratory: No increased work of breathing Back: No spinal tenderness. No costovertebral tenderness. Full range of motion. Skin: Warm, dry with normal turgor. Normal color with no rashes, no lesions, and no evidence of cellulitis. MS/ Extremity: Pulses equal, no cyanosis. Neurovascular intact. Full, normal range of motion. Neuro: Awake and alert, GCS 15, oriented to person, place, time, and situation. Cranial nerves II-XII grossly intact. Motor strength 5/5 in all extremities. Sensory grossly intact. Cerebellar exam normal. Normal gait. Vital Signs: 13:32 BP 149 / 90; Pulse 67; Resp 16; Temp 98.2(TE); Pulse Ox 96% on R/A; Weight 79.38 kg; ss Height 5 ft. 2 in. (157.48 cm); Pain 0/10; 13:33 Pulse 67; Resp 16; Temp 98.2(TE); Pulse Ox 96% on R/A; Weight 79.38 kg; Height 5 ft. 2 ss in. (157.48 cm); Pain 0/10; 14:50 BP 137 / 83; Pulse 64; Resp 19 S; Pulse Ox 96% on R/A; ca1 13:33 Body Mass Index 32.01 (79.38 kg, 157.48 cm) ss NIH Stroke Scale Scores: 14:52 NIHSS Score: 0 la1 MDM: 13:44 Patient medically screened. la1 14:53 Data reviewed: vital signs, nurses notes, radiologic studies, and as a result, I will la1 discharge patient. Data interpreted: Pulse oximetry: on room air is 96 %. Counseling: I had a detailed discussion with the patient and/or guardian regarding: the historical points, exam findings, and any diagnostic results supporting the discharge/admit diagnosis, radiology results, the need for outpatient follow up, a neurosurgeon. Physician consultation: Von Sanchez MD was called at 14:53, was contacted at 14:53, regarding consult, patient's condition, and will see patient in office. Special discussion: Based on the patient's history, exam, and Dx evaluation, there is no indication for emergent intervention or inpatient Tx. It is understood by the patient/guardian that if the Sx's persist or worsen they need to return immediately for re-evaluation. ED course: discussed case with Dr. 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 06/01 13:57 Order name: CT Head Brain wo Cont; Complete Time: 14:39 la1 Administered Medications: No medications were administered Disposition: 16:28 Co-signature as Attending Physician, Kimo Mcdaniel MD I agree with the assessment and kdr plan of care. Disposition: 06/02/19 14:55 Discharged to Home. Impression: Paresthesia of skin. - Condition is Stable. - Discharge Instructions: Migraine Headache, Paresthesia. - Medication Reconciliation Form, Thank You Letter form. - Follow up: Von Sanchez MD; When: 2 - 3 days; Reason: Recheck today's complaints, Continuance of care, Re-evaluation by your physician. Follow up: Emergency Department; When: As needed; Reason: Worsening of condition. NIH Stroke Scale - NIH Stroke Score Date: 06/02/2019 Time: 14:52 Total Score = 0 1a. Level of Consciousness (LOC) - 0(Alert) 1b. Level of Consciousness (LOC) (Year \\T\\ Age) - 0(Both) 1c. LOC Commands (Open \\T\\ Closes Eyes/Survey Rodman) - 0(Both) 2. Best Gaze (Lateral Gaze Paresis) - 0(Normal) 3. Visual Field Loss - 0(No visual loss) 4. Facial Palsy - 0(Normal) 5a. Left Arm: Motor (10-second hold) - 0(No drift) 5b. Right Arm: Motor (10-second hold) - 0(No drift) 6a. Left Leg: Motor (5-second hold - always test supine) - 0(No drift) 6b. Right Leg: Motor (5-second hold - always test supine) - 0(No drift) 7. Limb Ataxia (finger/nose \\T\\ heel/eubanks - test with eyes open) - 0(Absent) 8. Sensory Loss (pinprick arms/legs/face) - 0(Normal) 9. Best Language: Aphasia (description/naming/reading) - 0(No aphasia) 10. Dysarthria (speech clarity - read or repeat words) - 0(Normal) 11. Extinction and Inattention (visual/tactile/auditory/spatial/personal) - 0(No abnormality) Initials: la1 Signatures: Dispatcher [employer] EDMS Kimo Mcdaniel MD MD [facility] Angelina Murillo RN RN ss Mando Kinney, BALLISTICS EXPERT FORENSIC-C BALLISTICS EXPERT FORENSIC-Cla1 Gala Rebolledo RN RN ca1 Corrections: (The following items were deleted from the chart) 15:08 14:55 06/02/2019 14:55 Discharged to Home. Impression: Paresthesia of skin. ca1 Condition is Stable. Forms are Medication Reconciliation Form, Thank You Letter, Antibiotic Education, Prescription Opioid Use. Follow up: Von Sanchez; When: 2 - 3 days; Reason: Recheck today's complaints, Continuance of care, Re-evaluation by your physician. Follow up: Emergency Department; When: As needed; Reason: Worsening of condition. la1
--- NOTE | 2019-06-02 14:55 | ER ---
Nurse's Notes [facility] Name: Manolo Cotter Age: 39 yrs Sex: Female : 1980 Arrival Date: 06/02/2019 Time: 12:58 Bed 14 Private MD: Diagnosis: Paresthesia of skin Presentation: 06/01 13:33 Chief complaint: Patient states: Intermittent numbness, warmth and chills to L side x 1 ss month. Pt is being seen by Dr. Sanchez for these symptoms. Pt is concerned today because with the episode she had she was having diarrhea as well. Pt reports she feels better after arrival to ED. Coronavirus screen: The patient has NOT traveled to a country currently being monitored by the [facility] within the last 14 days. Proceed with normal triage procedures. Ebola Screen: Patient denies exposure to infectious person. Patient denies travel to an Ebola-affected area in the 21 days before illness onset. Initial Sepsis Screen: Does the patient meet any 2 criteria? No. Patient's initial sepsis screen is negative. Does the patient have a suspected source of infection? No. Patient's initial sepsis screen is negative. Risk Assessment: Do you want to hurt yourself or someone else? Patient reports no desire to harm self or others. 13:33 Method Of Arrival: Ambulatory ss 13:33 Acuity: NIKO 3 ss 14:03 Onset of symptoms was June 02, 2019. ca1 SLEDGER: 14:03 unknown ca1 Historical: - Allergies: 13:38 Levaquin; ss 13:38 PENICILLINS; ss - PMHx: 13:38 Hypertension; syncope x1; "mini strokes"; Migraines; ss - Immunization history:: Adult Immunizations up to date. - Social history:: Smoking status: Patient denies any tobacco usage or history of. Screenin:03 Abuse screen: Denies threats or abuse. Denies injuries from another. Nutritional ca1 screening: No deficits noted. 14:03 Tuberculosis screening: No symptoms or risk factors identified. Fall Risk None ca1 identified. Assessment: 14:03 General: Appears in no apparent distress. comfortable, Behavior is calm, cooperative, ca1 appropriate for age. Pain: Denies pain. 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 Gait is steady, Speech is normal, Facial symmetry appears normal, Pupils are PERRLA, Intact Reports headache occipital area, since 1100 this morning but has been gone now. Neuro: Reports numbness in face, left arm and left leg. L side of cheek since 1100 but has gone away. Reports history of similar symptoms. Cardiovascular: Heart tones S1 S2 present Capillary refill < 3 seconds Patient's skin is warm and dry. Rhythm is sinus rhythm. Respiratory: Airway is patent Respiratory effort is even, unlabored, Respiratory pattern is regular, symmetrical, Breath sounds are clear bilaterally. GI: Abdomen is round non-distended, Bowel sounds present X 4 quads. Abd is soft and non tender X 4 quads. Reports diarrhea. : No deficits noted. EENT: No deficits noted. Derm: Skin is intact, is healthy with good turgor, Skin is pink, warm \\T\\ dry. Musculoskeletal: Circulation, motion, and sensation intact. Capillary refill < 3 seconds. 14:09 Reassessment: PT to CT via wheelchair. ca1 14:50 Reassessment: Patient appears in no apparent distress at this time. Patient is alert, ca1 oriented x 3, equal unlabored respirations, skin warm/dry/pink. Vital Signs: 13:32 BP 149 / 90; Pulse 67; Resp 16; Temp 98.2(TE); Pulse Ox 96% on R/A; Weight 79.38 kg; ss Height 5 ft. 2 in. (157.48 cm); Pain 0/10; 13:33 Pulse 67; Resp 16; Temp 98.2(TE); Pulse Ox 96% on R/A; Weight 79.38 kg; Height 5 ft. 2 ss in. (157.48 cm); Pain 0/10; 14:50 BP 137 / 83; Pulse 64; Resp 19 S; Pulse Ox 96% on R/A; ca1 13:33 Body Mass Index 32.01 (79.38 kg, 157.48 cm) NIH Stroke Scale Scores: 14:52 NIHSS Score: 0 la1 ED Course: 12:58 Patient arrived in ED. mr 13:28 Gala Rebolledo, RN is Primary Nurse. ca1 13:32 Arm band placed on right wrist. ss 13:38 Triage completed. ss 13:39 Mando Kinney FNP-C is PHCP. la1 13:39 Rittger, Kimo, MD is Attending Physician. la1 14:03 Patient has correct armband on for positive identification. Placed in gown. Bed in low ca1 position. Call light in reach. Side rails up X 1. laboratory monitor on. Pulse ox on. NIBP on. 14:13 CT Head Brain wo Cont In Process Unspecified. EDMS 14:55 Von Sanchez MD is Referral Physician. la1 15:05 No provider procedures requiring assistance completed. Patient did not have IV access ca1 during this emergency room visit. Administered Medications: No medications were administered Outcome: 14:55 Discharge ordered by . la1 15:05 Discharged to home ambulatory, with family. ca1 15:05 Condition: stable 15:05 Discharge instructions given to patient, Instructed on discharge instructions, follow up and referral plans. Demonstrated understanding of instructions, follow-up care. 15:08 Patient left the ED. ca1 NIH Stroke Scale - NIH Stroke Score Date: 06/02/2019 Time: 14:52 Total Score = 0 1a. Level of Consciousness (LOC) - 0(Alert) 1b. Level of Consciousness (LOC) (Year \\T\\ Age) - 0(Both) 1c. LOC Commands (Open \\T\\ Closes Eyes/Metalizer) - 0(Both) 2. Best Gaze (Lateral Gaze Paresis) - 0(Normal) 3. Visual Field Loss - 0(No visual loss) 4. Facial Palsy - 0(Normal) 5a. Left Arm: Motor (10-second hold) - 0(No drift) 5b. Right Arm: Motor (10-second hold) - 0(No drift) 6a. Left Leg: Motor (5-second hold - always test supine) - 0(No drift) 6b. Right Leg: Motor (5-second hold - always test supine) - 0(No drift) 7. Limb Ataxia (finger/nose \\T\\ heel/eubanks - test with eyes open) - 0(Absent) 8. Sensory Loss (pinprick arms/legs/face) - 0(Normal) 9. Best Language: Aphasia (description/naming/reading) - 0(No aphasia) 10. Dysarthria (speech clarity - read or repeat words) - 0(Normal) 11. Extinction and Inattention (visual/tactile/auditory/spatial/personal) - 0(No abnormality) Initials: la1 Signatures: Dispatcher [employer] LISA De La VegaJoyce mr Angelina Murillo, RN RN ss Mando Kinney, STOREPERSON-C STOREPERSON-Cla1 Gala Rebolledo RN RN ca1
[2019-06-02 15:14] VITALS: TEMP 98.2; O2SAT 96
[2019-06-02 15:17] VITALS: BP 137/83
== END 2019-06-02 15:08 | disposition home or self-care (01) ==
LOC: ER 12:21
DX: R20.2 Paresthesia of skin (principal); I10 Essential (primary) hypertension; Z88.0 Allergy status to penicillin; Z88.1 Allergy status to other antibiotic agents
CPT/HCPCS: 70450; 99284

== ENCOUNTER 2020-08-04 19:29 | Emergency (ER) | payer SELFPAY ==
--- OUTSIDE RECORDS SUMMARY | 2020-08-04 19:32 | XMS REPORT | Continuity of Care Document ---
:1980 Author Organization [facility] t Address [address] [place] [id number] Care Team Providers Name Role Phone Unavailable Unavailable Unavailable Problems This patient has no known problems. Allergies, Adverse Reactions, Alerts This patient has no known allergies or adverse reactions. Medications This patient has no known medications. Procedures This patient has no known procedures. Results This patient has no known results.
[2020-08-04 20:33] LABS: Urine Blood Negative (Negative); Urine Glucose Negative (Negative); Urine Protein Negative (Negative); Urine Specific Gravity >=1.030 (1.005-1.030)
[2020-08-04 20:38] LABS: Absolute Lymphocytes (CBC) 3.8 K/uL (0.7-4.9); Hematocrit 41.2 % (36.0-45.0); Lymphocytes % 42.2 % (15.3-44.8); MPV 9.1 fL (7.6-11.3)
[2020-08-04] MEDS ORDERED: ONDANSETRON 4 MG/2 ML VIAL ONE (20:53)
[2020-08-04] MEDS ORDERED: FAMOTIDINE 20 MG/2 ML VIAL IV ONE (20:53)
[2020-08-04] MEDS ORDERED: NA CHLORIDE 0.9% 1,000 ML ONE (20:53)
[2020-08-04 20:55] LABS: Urine Specific Gravity/Preg >1.030 (1.005-1.030)
[2020-08-04 20:59] LABS: ALT/SGPT 14 U/L (12-78); AST/SGOT 8 U/L (15-37); Albumin 3.7 g/dL (3.4-5.0); Alkaline Phosphatase 103 U/L (45-117); BUN Blood Urea Nitrogen 14 mg/dL (7-18); Bicarbonate 30 mmol/L (21-32); Bilirubin Direct < 0.1 mg/dL (0-0.2); Bilirubin Total 0.2 mg/dL (0.2-1.0); Glucose Level 95 mg/dL (74-106); Lipase 103 U/L (73-393); Potassium 4.1 mmol/L (3.5-5.1); Protein, Total 7.4 g/dL (6.4-8.2); Sodium Level 143 mmol/L (136-145)
--- NOTE | 2020-08-04 21:26 | RAD REPORT ---
EXAM DESCRIPTION: CT - Abdomen Pelvis W Contrast - 08/04/2020 9:10 pm CLINICAL HISTORY: Abd pain;Flank pain COMPARISON: Abdomen Pelvis W Contrast dated 05/27/2018; CT ABD PELVIS W CONTRAST dated 04/02/2014 TECHNIQUE: Biphasic, helical CT imaging of the abdomen and pelvis was performed following 100 ml non -ionic IV contrast. Oral contrast was given. All CT scans are performed using dose optimization technique as appropriate and may include automated exposure control or mA/KV adjustment according to patient size. FINDINGS: No suspicious findings in the lung bases. The liver, spleen, and pancreas show no suspicious findings. Gallbladder and biliary tree are also wi thout suspicious finding. Symmetric renal function is seen with no hydronephrosis or suspicious renal mass. No pyelonephritis o r acute parenchymal process. No bladder abnormalities. No adrenal abnormalities. Uterus and ovaries s how no suspicious findings. No dilated bowel loops or bowel wall thickening. Appendix is normal. No free air, free fluid or infla mmatory stranding. No hernia, mass or bulky lymphadenopathy. No suspicious bony findings. IMPRESSION: Contrast enhanced CT abdomen and pelvis showing no significant or suspicious finding.
--- NOTE | 2020-08-04 23:04 | ER ---
Nurse's Notes [facility] Name: Manolo Cotter Age: 40 yrs Sex: Female : 1980 Arrival Date: 08/04/2020 Time: 19:33 Bed 16 Private MD: Diagnosis: Upper abdominal pain, unspecified;Flank Pain Presentation: 08/04 19:38 Chief complaint: Patient states: Pain in LUQ that wraps around to the back for about a vg1 week, Denies NVD. Coronavirus screen: Client denies travel out of the [place] in the last 14 days. Ebola Screen: Patient negative for fever greater than or equal to 101.5 degrees Fahrenheit, and additional compatible Ebola Virus Disease symptoms. Initial Sepsis Screen: Does the patient meet any 2 criteria? No. Patient's initial sepsis screen is negative. Does the patient have a suspected source of infection? No. Patient's initial sepsis screen is negative. Risk Assessment: Do you want to hurt yourself or someone else? Patient reports no desire to harm self or others. Onset of symptoms was July 28, 2020. 19:38 Method Of Arrival: Ambulatory vg1 19:38 Acuity: NIKO 3 vg1 Triage Assessment: 19:42 General: Appears in no apparent distress. comfortable, Behavior is calm, cooperative. vg1 Pain: Complains of pain in left upper quadrant Pain currently is 5 out of 10 on a pain scale. GI: Abdomen is round non-distended, Last BM was August 04, 2020. 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 - Social history:: Smoking status: Patient reports the use of cigarette tobacco products, smokes one pack cigarettes per day. Screenin:37 Abuse screen: Denies threats or abuse. Denies injuries from another. Nutritional jm8 screening: No deficits noted. Tuberculosis screening: No symptoms or risk factors identified. Fall Risk None identified. Assessment: 20:51 General: Appears in no apparent distress. comfortable, Behavior is calm, cooperative, jm8 appropriate for age. Pain: Complains of pain in left lower quadrant and abdomen and left upper quadrant Pain currently is 5 out of 10 on a pain scale. Quality of pain is described as aching, Pain began 1 week ago. Neuro: No deficits noted. Level of Consciousness is awake, alert, obeys commands, Oriented to person, place, time. Cardiovascular: No deficits noted. Respiratory: No deficits noted. Airway is patent Trachea midline Respiratory effort is even, unlabored. GI: Abdomen is flat, Bowel sounds present X 4 quads. Abd is soft and non tender X 4 quads. Reports lower abdominal pain, upper abdominal pain, nausea. : No deficits noted. : No signs and/or symptoms were reported regarding the genitourinary system. EENT: No deficits noted. No signs and/or symptoms were reported regarding the EENT system. Derm: No deficits noted. No signs and/or symptoms reported regarding the dermatologic system. Derm: Skin is intact, is healthy with good turgor, Skin is dry, Skin is pink, warm \\T\\ dry. Skin temperature is warm. Musculoskeletal: No deficits noted. No signs and/or symptoms reported regarding the musculoskeletal system. Vital Signs: 19:38 BP 137 / 96; Pulse 76; Resp 16; Temp 98.5; Pulse Ox 100% ; Weight 79.38 kg; Height 5 1 ft. 2 in. (157.48 cm); Pain 5/10; 20:58 BP 133 / 89; Pulse 77; Resp 16; Pulse Ox 100% on R/A; jm8 23:21 BP 122 / 78; Pulse 74; Resp 16; Pulse Ox 99% on R/A; jm8 19:38 Body Mass Index 32.01 (79.38 kg, 157.48 cm) 1 ED Course: 19:33 Patient arrived in ED. mr 19:41 Triage completed. vg1 19:42 Arm band placed on Patient placed in waiting room, Patient notified of wait time. 1 19:45 Lazarus Smith MD is Attending Physician. [facility] 20:36 Inserted saline lock: 20 gauge in left antecubital area, using aseptic technique. 8 20:37 Patient has correct armband on for positive identification. Bed in low position. Call 8 light in reach. Side rails up X2. Adult w/ patient. 21:10 CT Abd/Pelvis - IV Contrast Only In Process Unspecified. [facility] 23:08 Patricia Garcia, RN is Primary Nurse. vince 23:21 No provider procedures requiring assistance completed. IV discontinued, intact, [facility] bleeding controlled. Administered Medications: 20:35 Drug: Pepcid (famotidine) 20 mg Route: IVP; Site: left antecubital; [facility] 23:22 Follow up: Response: No adverse reaction [facility] 20:35 Not Given (Patient Refused): morphine 4 mg IVP once; RASS on ADMIN: Combtv4, Very jm8 Agttd3, Agttd2, Rstlss1, AlertClm0, Drwsy-1, Lt Sdtn-2, Mod Sdtn-3, Dp Sdtn-4, UnArsble-5 20:36 Drug: NS 0.9% 1000 ml Route: IV; Rate: 1000 ml; Site: left antecubital; 8 23:23 Follow up: IV Status: Completed infusion [facility] 20:36 Drug: Zofran (Ondansetron) 4 mg Route: IVP; Site: left antecubital; [facility] 23:22 Follow up: Response: No adverse reaction [facility] Point of Care Testing: Urine : 20:36 hCG Reading: Negative; Control Reading: Positive; [facility] Outcome: 23:03 Discharge ordered by . Corina 23:22 Discharged to home ambulatory. [facility] 23:22 Condition: good 23:22 Discharge instructions given to patient, Instructed on discharge instructions, follow up and referral plans. medication usage, Demonstrated understanding of instructions, follow-up care, medications, Prescriptions given X 2. 23:24 Patient left the ED. [facility] Signatures: Dispatcher [employer] [facility] Joyce De La Vega Patricia Garcia, RN Margo Traylor ea RN RN elli1 Lazarus Smith MD MD Bernard Asencio RN RN [facility]
--- NOTE | 2020-08-04 23:04 | EDPHYS ---
Physician Documentation [facility] Name: Manolo Cotter Age: 40 yrs Sex: Female : 1980 Arrival Date: 08/04/2020 Time: 19:33 Bed 16 Private MD: ED Physician Lazarus Smith HPI: 08/04 20:27 This 40 yrs old Female presents to ER via Ambulatory with complaints of mh7 Abdominal Pain, Back Pain. 20:27 The patient presents with abdominal pain in the left upper quadrant. Onset: The mh7 symptoms/episode began/occurred 1 week(s) ago. The symptoms radiate to the left flank. 20:27 Associated signs and symptoms: Pertinent negatives: nausea, vomiting, and diarrhea, mh7 nausea and vomiting, anorexia, blood in stools, chest pain, constipation, diarrhea, dysuria, fever, headache, hematuria, nausea, palpitations, shortness of breath, vaginal discharge, vomiting, vomiting blood. The symptoms are described as intermittent, vague, waxing/waning. Modifying factors: The symptoms are alleviated by standing. the symptoms are aggravated by food, touching the area, supine position. Severity of pain: At its worst the pain was moderate 2 day(s) ago, in the emergency department the pain is unchanged. The patient has experienced similar episodes in the past, several times. 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 - Social history:: Smoking status: Patient reports the use of cigarette tobacco products, smokes one pack cigarettes per day. ROS: 20:27 Constitutional: Negative for fever, chills, and weight loss, Eyes: Negative for injury, mh7 pain, redness, and discharge, ENT: Negative for injury, pain, and discharge, Neck: Negative for injury, pain, and swelling, Cardiovascular: Negative for chest pain, palpitations, and edema, Respiratory: Negative for shortness of breath, cough, wheezing, and pleuritic chest pain, : Negative for injury, bleeding, discharge, and swelling, MS/Extremity: Negative for injury and deformity, Skin: Negative for injury, rash, and discoloration, Neuro: Negative for headache, weakness, numbness, tingling, and seizure, Psych: Negative for depression, anxiety, suicide ideation, homicidal ideation, and hallucinations, Allergy/Immunology: Negative for hives, rash, and allergies, Endocrine: Negative for neck swelling, polydipsia, polyuria, polyphagia, and marked weight changes, Hematologic/Lymphatic: Negative for swollen nodes, abnormal bleeding, and unusual bruising. Exam: 20:27 Constitutional: This is a well developed, well nourished patient who is awake, alert, mh7 and in no acute distress. Head/Face: Normocephalic, atraumatic. Eyes: Pupils equal round and reactive to light, extra-ocular motions intact. Lids and lashes normal. Conjunctiva and sclera are non-icteric and not injected. Cornea within normal limits. Periorbital areas with no swelling, redness, or edema. Neck: Trachea midline, no thyromegaly or masses palpated, and no cervical lymphadenopathy. Supple, full range of motion without nuchal rigidity, or vertebral point tenderness. No Meningismus. Chest/axilla: Normal chest wall appearance and motion. Nontender with no deformity. No lesions are appreciated. Cardiovascular: Regular rate and rhythm with a normal S1 and S2. No gallops, murmurs, or rubs. Normal PMI, no JVD. No pulse deficits. Respiratory: Lungs have equal breath sounds bilaterally, clear to auscultation and percussion. No rales, rhonchi or wheezes noted. No increased work of breathing, no retractions or nasal flaring. 20:27 Skin: Warm, dry with normal turgor. Normal color with no rashes, no lesions, and no evidence of cellulitis. MS/ Extremity: Pulses equal, no cyanosis. Neurovascular intact. Full, normal range of motion. Neuro: Awake and alert, GCS 15, oriented to person, place, time, and situation. Cranial nerves II-XII grossly intact. Motor strength 5/5 in all extremities. Sensory grossly intact. Cerebellar exam normal. Normal gait. Psych: Awake, alert, with orientation to person, place and time. Behavior, mood, and affect are within normal limits. 20:27 Abdomen/GI: Inspection: abdomen appears normal, Bowel sounds: normal, in all quadrants, Palpation: moderate abdominal tenderness, in the left upper quadrant and left lower quadrant, mass, is not appreciated, rebound tenderness, is not appreciated, voluntary guarding, is not appreciated, involuntary guarding, is not appreciated, no appreciated organomegaly, Rectal exam: the exam is deferred, because of patient request, Indicators: McBurney's point is not tender, Anaya's sign is negative, Rovsing's sign is negative, Obturator sign is negative, Psoas sign is negative, Liver: no appreciated palpable abnormalities, Hernia: not appreciated. 20:27 Back: normal spinal alignment noted, CVA tenderness, that is moderate, is noted on the left, vertebral tenderness, is not appreciated, muscle spasm, is not present. Vital Signs: 19:38 BP 137 / 96; Pulse 76; Resp 16; Temp 98.5; Pulse Ox 100% ; Weight 79.38 kg; Height 5 vg1 ft. 2 in. (157.48 cm); Pain 5/10; 20:58 BP 133 / 89; Pulse 77; Resp 16; Pulse Ox 100% on R/A; jm8 23:21 BP 122 / 78; Pulse 74; Resp 16; Pulse Ox 99% on R/A; jm8 19:38 Body Mass Index 32.01 (79.38 kg, 157.48 cm) vg1 MDM: 23:01 Differential diagnosis: bowel obstruction, diverticulitis, gastritis, gastroesophageal mh7 reflux disease, non-specific abd pain, pancreatitis, Pyelonephritis, Ureterolithiasis, urinary tract infection. Data reviewed: vital signs, nurses notes, lab test result(s), CBC, electrolytes, urinalysis, UPT: negative. Data interpreted: Pulse oximetry: on room air is 100 %. Interpretation: normal. Counseling: I had a detailed discussion with the patient and/or guardian regarding: the historical points, exam findings, and any diagnostic results supporting the discharge/admit diagnosis, lab results, radiology results, the need for outpatient follow up, to return to the emergency department if symptoms worsen or persist or if there are any questions or concerns that arise at home. Response to treatment: the patient's symptoms have markedly improved after treatment. 23:03 Patient medically screened. [facility] 08/04 20:13 Order name: Basic Metabolic Panel [facility] 08/04 20:13 Order name: CBC with Diff; Complete Time: 21:11 [facility] 08/04 20:13 Order name: Hepatic Function; Complete Time: 21:11 [facility] 08/04 20:13 Order name: Lipase; Complete Time: 21:11 [facility] 08/04 20:14 Order name: Basic Metabolic Panel; Complete Time: 21:11 [facility] 08/04 20:32 Order name: Urine Dipstick-Ancillary; Complete Time: 21:11 [facility] 08/04 20:13 Order name: IV Saline Lock; Complete Time: 20:35 [facility] 08/04 20:13 Order name: Labs collected and sent; Complete Time: 20:35 [facility] 08/04 20:13 Order name: CT Abd/Pelvis - IV Contrast Only; Complete Time: 22:23 [facility] 08/04 20:43 Order name: Urine --Ancillary (enter results); Complete Time: 21:11 [facility] 08/04 20:13 Order name: Urine Dipstick-Ancillary (obtain specimen); Complete Time: 20:35 [facility] 08/04 20:13 Order name: Urine Test (obtain specimen); Complete Time: 20:35 [facility] 08/04 20:13 Order name: EKG - Nurse/Tech; Complete Time: 20:48 [facility] Administered Medications: 20:35 Drug: Pepcid (famotidine) 20 mg Route: IVP; Site: left antecubital; [facility] 23:22 Follow up: Response: No adverse reaction [facility] 20:35 Not Given (Patient Refused): morphine 4 mg IVP once; RASS on ADMIN: Combtv4, Very jm8 Agttd3, Agttd2, Rstlss1, AlertClm0, Drwsy-1, Lt Sdtn-2, Mod Sdtn-3, Dp Sdtn-4, UnArsble-5 20:36 Drug: NS 0.9% 1000 ml Route: IV; Rate: 1000 ml; Site: left antecubital; [facility] 23:23 Follow up: IV Status: Completed infusion [facility] 20:36 Drug: Zofran (Ondansetron) 4 mg Route: IVP; Site: left antecubital; jm8 23:22 Follow up: Response: No adverse reaction jm8 Point of Care Testing: Urine : 20:36 hCG Reading: Negative; Control Reading: Positive; jm8 Disposition: 08/04/20 23:03 Discharged to Home. Impression: Upper abdominal pain, unspecified, Flank Pain. - Condition is Stable. - Discharge Instructions: Abdominal Pain, Adult, [id number], Flank Pain, [id number]. - Prescriptions for Bentyl 20 mg Oral Tablet - take 1 tablet by ORAL route every 6 hours As needed; 20 tablet. Pepcid 20 mg Oral Tablet - take 1 tablet by ORAL route every 12 hours for 5 days; 10 tablet. - Medication Reconciliation Form, Thank You Letter, Antibiotic Education, Prescription Opioid Use form. - Follow up: Private Physician; When: 1 - 2 days; Reason: Worsening of condition, Recheck today's complaints, Continuance of care, Re-evaluation by your physician. - Problem is an ongoing problem. - Symptoms have improved. Signatures: Dispatcher [employer] EDMargo Mai RN RN vg1 Lazarus Smith MD MD mh7 Bernard Armendariz RN RN jm8 Corrections: (The following items were deleted from the chart) 23:24 23:03 08/04/2020 23:03 Discharged to Home. Impression: Upper abdominal pain, jm8 unspecified; Flank Pain. Condition is Stable. Forms are Medication Reconciliation Form, Thank You Letter, Antibiotic Education, Prescription Opioid Use. Follow up: Private Physician; When: 1 - 2 days; Reason: Worsening of condition, Recheck today's complaints, Continuance of care, Re-evaluation by your physician. Problem is an ongoing problem. Symptoms have improved. mh7
[2020-08-04 23:45] VITALS: TEMP 98.5
[2020-08-04 23:48] VITALS: BP 122/78; O2SAT 99
== END 2020-08-04 23:24 | disposition home or self-care (01) ==
LOC: ER 19:29
DX: R10.12 Left upper quadrant pain (principal); R10.9 Unspecified abdominal pain; I10 Essential (primary) hypertension; F17.210 Nicotine dependence, cigarettes, uncomplicated; Z79.82 Long term (current) use of aspirin; Z88.0 Allergy status to penicillin; Z88.1 Allergy status to other antibiotic agents
CPT/HCPCS: 36415; 74177; 80048; 80076; 81003; 81025; 83690; 85025; 93005; 96361; 96374; 96375; 99284; J2405; J7030; Q9967

== ENCOUNTER 2022-08-24 19:19 | Emergency (ER) | payer SELFPAY ==
--- OUTSIDE RECORDS SUMMARY | 2022-08-24 19:31 | XMS REPORT | Continuity of Care Document ---
:1980 Author Organization [facility] t Address [address] [place] [address] Care Team Providers Name Role Phone Margie Parker Primary Care Physician [phone] OZZY POTTS Attending Clinician Unavailable Ozzy Alvarez Attending Clinician [facility] Attending Clinician Unavailable Doctor Unassigned, [place] Attending Clinician Unavailable ROSA AKERS Attending Clinician Unavailable Rosa Akers DO Attending Clinician GILES ENGLE Attending Clinician Unavailable Giles Engle MD Attending Clinician GILES ENGLE Admitting Clinician Unavailable Problems Condition Condition Condition Status Onset Resolution Last Treating Co mments Source Name Details Category Date Date Treatment Clinician Date No known No known Disease Unive rs active active ity of problems problems [facility] Allergies, Adverse Reactions, Alerts Allergy Allergy Status Severity Reaction(s) Onset Inactive Treating Comm ents Source Name Type Date Date Clinician Penicill Propensi Active 2021-03 ins - ty to 2-08 CLASS adverse 00:00: reaction 00 to drug n Propensi Active ty to 7-11 adverse 00:00: reaction 00 to drug Levaquin Propensi Active - Oral ty to 3-10 adverse 00:00: reaction 00 to drug Penicill Propensi Active ins ty to 5-07 adverse 00:00: reaction 00 to drug Levoflox Propensi Active Nausea Univer s acin ty to and/or 8-06 ity of adverse Vomiting 00:00: [place] reaction 00 Medical s Branch LEVOFLOX DRUG Active N/V Univers ACIN INGREDI 8-06 ity of 00:00: [place] 00 Medical Branch PENICILL Drug Active Hives Univers INS Class 6-24 ity of 00:00: [place] 00 Medical Branch Penicill Propensi Active Hives Univer s ins ty to 6-24 ity of adverse 00:00: [place] reaction 00 Medical s Branch Social History Social Habit Start Date Stop Date Quantity Comments Source History of Cigarette Smoker Universi ty of tobacco use [place] [facility] Tobacco use and 2022-08-22 2022-08-22 Smokeless tobacco Un iversity of exposure 00:00:00 00:00:00 non-user [facility] Alcohol intake 2022-08-22 2022-08-22 Ex-drinker University 00:00:00 00:00:00 (finding) [place] [facility] Exposure to 2022-08-04 2022-08-14 Not sure [facility] SARS-CoV-2 00:00:00 07:20:00 [facility] (event) Branch Sex [birth year] At [birth year] Universit y of 00:00:00 00:00:00 [place] [facility] Smoking Status Start Date Stop Date Source Tobacco smoking consumption [facility] [place] [place] [facility] [place] [facility] Branch Smokes tobacco daily 2022-08-22 00:00:00 Univers ity of [place] [facility] Medications Ordered Filled Start Stop Current Ordering Indication Dosage Frequency Signature Comments Components Source Medication Medication Date Date Medication? Clinician (SIG) Name Name ATENOLOL Yes Take by Univer s ORAL 6-08 mouth. ity of 13:06: [place] [address] Medical Branch ESOMEPRAZOL Yes Take by Uni vers E MAGNESIUM 6-08 mouth. ity of (NEXIUM 13:06: [place] ORAL) 53 Medical Branch ATENOLOL Yes Take by Univer s ORAL 6-08 mouth. ity of 13:06: [place] [address] Medical Branch ESOMEPRAZOL Yes Take by Uni vers E MAGNESIUM 6-08 mouth. ity of (NEXIUM 13:06: [place] ORAL) 53 Medical Branch ATENOLOL Yes Take by Univer s ORAL 6-08 mouth. ity of 13:06: [place] 53 Medical Branch ESOMEPRAZOL 0 Yes Take by Uni vers E MAGNESIUM 6-08 mouth. ity of (NEXIUM 13:06: [place] ORAL) 53 Medical Branch ATENOLOL Yes Take by Univer s ORAL 6-08 mouth. ity of 13:06: [address] Branch ESOMEPRAZOL 0 Yes Take by Uni vers E MAGNESIUM 6-08 mouth. ity of (NEXIUM 13:06: [place] ORAL) 53 Medical Branch peg-electro Yes [id number] Take as Univers lyte soln 6-08 directed ity of 236-22.74-6 00:00[place] .[place] -5.86 00 colonoscop Medi pasquale gram y Branch solution peg-electro 0 Yes [id number] Take as Univers lyte soln 6-08 directed ity of 236-22.74-6 00:00: [place] .[place] -5.86 00 colonoscop Medi [place]ale gram y Branch solution peg-electro 0 Yes [id number] Take as Univers lyte soln 6-08 directed ity of 236-22.74-6 00:00: [place] .[place] -5.86 00 colonoscop Medi [place] gram y Branch solution peg-electro 0 Yes [id number] Take as Univers lyte soln 6-08 directed ity of 236-22.74-6 00:00: [place] .[place] -5.86 00 colonoscop Medi pasquale gram y Branch solution ondansetron 2022- Yes [id number] 4mg Take 1 Univers 4 mg 08-22 tablet by ity of disintegrat 00:00: 04:59 [place] tablet 00 :00 every 8 Medica l (eight) Branch hours as needed for Nausea and Vomiting (N/V) for up to 90 days. ondansetron 2022- Yes [id number] 4mg Take 1 Univers 4 mg 6-10 23- tablet by ity of disintegrat 00:00: 04:59 [place] tablet 00 :00 every 8 Medica l (eight) Branch hours as needed for Nausea and Vomiting (N/V) for up to 90 days. ondansetron 2022- Yes [id number] 4mg Take 1 Univers 4 mg 6-10 23- tablet by ity of disintegrat 00:00: 04:59 [place] tablet 00 :00 every 8 Medica l (eight) Branch hours as needed for Nausea and Vomiting (N/V) for up to 90 days. ondansetron 2022- Yes [id number] 4mg Take 1 Univers 4 mg 6-10 23- tablet by ity of disintegrat 00:00: 04:59 [place] tablet 00 :00 every 8 Medica l (eight) Branch hours as needed for Nausea and Vomiting (N/V) for up to 90 days. NaCl 0.9% 2022- No 1000mL at 999 Uni vers (NS) bolus 5-31 05-31 mL/hr, ity of infusion 13:15: 13:30 1,000 mL, [place] 1,000 mL 00 :00 IV Medical Infusion, Branch ONCE, 1 dose, On 08/14/22 at 0815, JOHN iopamidol 2021-03- No [id number] 100mL 100 mL, Univers (ISOVUE 1-18 11-18 Intravenou ity o f 370-500 mL) 09:30: 09:30 s, ONCE, 1 [place] injection 00 :00 dose, On Medica l 100 mL Fri Branch 02/01/22 at 0330, Routine pantoprazol 2021-03 Yes [id number] 40mg Take 1 Univers e 1-18 tablet by ity of (PROTONIX) 00:00: mouth in [place] 40 mg EC 00 the Medical tablet morning. Branch dicyclomine 2021-03 Yes [id number] 20mg Take 1 Univers 20 mg 1-18 tablet by ity of tablet 00:00: mouth [place] 00 every 6 Medical (six) Branch hours as needed for Abdominal pain. ondansetron 2021-03 Yes [id number] 4mg Take 1 Univers (ZOFRAN) 4 1-18 tablet by ity of mg tablet 00:00: mouth [place] 00 every 8 Medical (eight) Branch hours as needed for Nausea and Vomiting (N/V). pantoprazol 2021-03 Yes [id number] 40mg Take 1 Univers e 1-18 tablet by ity of (PROTONIX) 00:00: mouth in [place] 40 mg EC 00 the Medical tablet morning. Branch dicyclomine 2021-03 Yes [id number] 20mg Take 1 Univers 20 mg 1-18 tablet by ity of tablet 00:00: mouth [place] 00 every 6 Medical (six) Branch hours as needed for Abdominal pain. pantoprazol 2021-03 Yes [id number] 40mg Take 1 Univers e 1-18 tablet by ity of (PROTONIX) 00:00: mouth in [place] 40 mg EC 00 the Medical tablet morning. Branch dicyclomine 2021-03 Yes [id number] 20mg Take 1 Univers 20 mg 1-18 tablet by ity of tablet 00:00: mouth [place] 00 every 6 Medical (six) Branch hours as needed for Abdominal pain. pantoprazol 2021-03 Yes [id number] 40mg Take 1 Univers e 1-18 tablet by ity of (PROTONIX) 00:00: mouth in [place] 40 mg EC 00 the Medical tablet morning. Branch dicyclomine 2021-03 Yes [id number] 20mg Take 1 Univers 20 mg 1-18 tablet by ity of tablet 00:00: mouth [place] 00 every 6 Medical (six) Branch hours as needed for Abdominal pain. pantoprazol 2021-03 Yes [id number] 40mg Take 1 Univers e 1-18 tablet by ity of (PROTONIX) 00:00: mouth in [place] 40 mg EC 00 the Medical tablet morning. Branch dicyclomine 2021-03 Yes [id number] 20mg Take 1 Univers 20 mg 1-18 tablet by ity of tablet 00:00: mouth [place] 00 every 6 Medical (six) Branch hours as needed for Abdominal pain. pantoprazol 2021-03 Yes [id number] 40mg Take 1 Univers e 1-18 tablet by ity of (PROTONIX) 00:00: mouth in [place] 40 mg EC 00 the Medical tablet morning. Branch dicyclomine 2021-03 Yes [id number] 20mg Take 1 Univers 20 mg 1-18 tablet by ity of tablet 00:00: mouth [place] 00 every 6 Medical (six) Branch hours as needed for Abdominal pain. ondansetron 2021-03 Yes [id number] 4mg Take 1 Univers (ZOFRAN) 4 1-18 tablet by ity of mg tablet 00:00: mouth [place] 00 every 8 Medical (eight) Branch hours as needed for Nausea and Vomiting (N/V). pantoprazol 2021-03 Yes [id number] 40mg Take 1 Univers e 1-18 tablet by ity of (PROTONIX) 00:00: mouth in [place] 40 mg EC 00 the Medical tablet morning. Branch dicyclomine 2021-03 Yes [id number] 20mg Take 1 Univers 20 mg 1-18 tablet by ity of tablet 00:00: mouth [place] 00 every 6 Medical (six) Branch hours as needed for Abdominal pain. ondansetron 2021-03 Yes [id number] 4mg Take 1 Univers (ZOFRAN) 4 1-18 tablet by ity of mg tablet 00:00: mouth [place] 00 every 8 Medical (eight) Branch hours as needed for Nausea and Vomiting (N/V). ondansetron 2021-03- No [id number] 4mg Take 1 Univers (ZOFRAN) 4 1-18 06-08 tablet by ity of mg tablet 00:00: 00:00 mouth [place] 00 :00 every 8 Medical (eight) Branch hours as needed for Nausea and Vomiting (N/V). ondansetron 2021-03- No [id number] 4mg Take 1 Univers (ZOFRAN) 4 1-18 06-08 tablet by ity of mg tablet 00:00: 00:00 mouth [place] 00 :00 every 8 Medical (eight) Branch hours as needed for Nausea and Vomiting (N/V). Dose 2021-0 No Unknown 8-02 00:00: 00 Dose 2-0 No Unknown 8-02 00:00: 00 Dose 2-0 No Unknown 7-11 00:00: 00 Dose 2-0 No Unknown 7-11 00:00: 00 Dose 2-0 No Unknown 7-11 00:00: 00 Dose 2-0 No Unknown 7-11 00:00: 00 Dose 2-0 No Unknown 7-11 00:00: 00 Dose 2-0 No Unknown 7-11 00:00: 00 Dose 2-0 No Unknown 3-17 00:00: 00 Dose 2-0 No Unknown 3-17 00:00: 00 Dose 2-0 No Unknown 3-17 00:00: 00 Dose 2-0 No Unknown 3-17 00:00: 00 Dose 2022-0 No Unknown 3-17 00:00: 00 Dose 2022-0 No Unknown 3-17 00:00: 00 Dose 2022-0 No Unknown 3-17 00:00: 00 Dose 2022-0 No Unknown 3-17 00:00: 00 Dose 2022-0 No Unknown 3-17 00:00: 00 Dose 2022-0 No Unknown 3-17 00:00: 00 Dose 2022-0 No Unknown 3-17 00:00: 00 Dose 2022-0 No Unknown 3-17 00:00: 00 Dose 2022-0 No Unknown 3-17 00:00: 00 Dose 2022-0 No Unknown 3-17 00:00: 00 Dose 2022-0 No Unknown 3-17 00:00: 00 Dose 2022-0 No Unknown 3-17 00:00: 00 Dose 2022-0 No Unknown 3-17 00:00: 00 Dose 2022-0 No Unknown 3-17 00:00: 00 atenolol 50 2-0 No 1mg mg tablet 3-10 00:00: 00 topiramate 2022-0 No 1mg XR 25 mg 3-10 capsule 00:00: sprinkle,ex 00 tended release 24 hr atenolol 50 2-0 No 1mg mg tablet 3-10 00:00: 00 Trokendi XR 2022-0 No 1mg 25 mg 3-10 capsule,ext 00:00: ended 00 release topiramate 2022-0 No 1mg XR 25 mg 3-10 capsule 00:00: sprinkle,ex 00 tended release 24 hr Trokendi XR 2-0 No 1mg 25 mg 3-10 capsule,ext 00:00: ended 00 release Dose 2022-0 No Unknown 3-10 00:00: 00 Dose 2022-0 No Unknown 3-10 00:00: 00 Dose 2022-0 No Unknown 3-10 00:00: 00 Dose 2022-0 No Unknown 3-10 00:00: 00 Dose 2022-0 No Unknown 3-10 00:00: 00 Dose 2022-0 No Unknown 3-10 00:00: 00 Dose 2022-0 No Unknown 3-10 00:00: 00 Dose 2022-0 No Unknown 3-10 00:00: 00 Dose 2022-0 No Unknown 3-10 00:00: 00 Dose 2022-0 No Unknown 3-10 00:00: 00 atenolol 50 2022-0 No 1mg mg tablet 3-10 00:00: 00 topiramate 2022-0 No 1mg XR 25 mg 3-10 capsule 00:00: seanex 00 tended release 24 hr Trokendi XR 2022-0 No 1mg 25 mg 3-10 capsule,ext 00:00: ended 00 release Dose 2022-0 No Unknown 3-10 00:00: 00 Dose 2022-0 No Unknown 3-10 00:00: 00 Dose 2022-0 No Unknown 3-10 00:00: 00 Dose 2022-0 No Unknown 3-10 00:00: 00 Dose 2022-0 No Unknown 3-10 00:00: 00 Dose 2021-0 No Unknown 9-08 00:00: 00 omeprazole 2021-0 No 1mg 20 mg 9-08 capsule,del 00:00: ayed 00 release Dose 2021-0 No Unknown 9-08 00:00: 00 Dose 2021-0 No Unknown 9-08 00:00: 00 Dose 2021-0 No Unknown 9-08 00:00: 00 Dose 2021-0 No Unknown 9-08 00:00: 00 Dose 2021-0 No Unknown 9-06 00:00: 00 Dose 2021-0 No Unknown 9-06 00:00: 00 Dose 2021-0 No Unknown 9-06 00:00: 00 atenolol 50 2021-0 No 1mg mg tablet 6-08 00:00: 00 atenolol 50 1-0 No 1mg mg tablet 6-08 00:00: 00 atenolol 50 1-0 No 1mg mg tablet 6-08 00:00: 00 omeprazole 2021-0 No 1mg 20 mg 5-27 capsule,del 00:00: ayed 00 release omeprazole 2021-0 No 1mg 20 mg 5-27 capsule,del 00:00: ayed 00 release omeprazole 2021-0 No 1mg 20 mg 5-27 capsule,del 00:00: ayed 00 release atenolol 50 2021-0 No 1mg mg tablet 5-07 00:00: 00 atenolol 50 2021-0 No 1mg mg tablet 5-07 00:00: 00 Antonia Low 2021-0 No 1mg Dose 07-21 Aspirin 81 00:00: mg 00 tablet,shira yed release atenolol 50 2020-0 No 1mg mg tablet 07-21 00:00: 00 atenolol 50 2020-0 No 1mg mg tablet 07-21 00:00: 00 Antonia Low 2020-0 No 1mg Dose 07-21 Aspirin 81 00:00: mg 00 tablet,shira yed release atenolol 50 2020-0 No 1mg mg tablet 07-21 00:00: 00 atenolol 50 2020-0 No 1mg mg tablet 07-21 00:00: 00 Antonia Low 2020-0 No 1mg Dose 07-21 Aspirin 81 00:00: mg 00 tablet,shira yed release traMADOL Yes [id number] 50mg Take 1 Un calli (ULTRAM) 50 1-28 tablet by ity of mg tablet 00:00: mouth [place] 00 every 6 Medical (six) Branch hours as needed for Pain (scale 7-10). traMADOL Yes [id number] 50mg Take 1 Un calli (ULTRAM) 50 1-28 tablet by ity of mg tablet 00:00: mouth [place] 00 every 6 Medical (six) Branch hours as needed for Pain (scale 7-10). traMADOL Yes [id number] 50mg Take 1 Un calli (ULTRAM) 50 1-28 tablet by ity of mg tablet 00:00: mouth [place] 00 every 6 Medical (six) Branch hours as needed for Pain (scale 7-10). traMADOL Yes [id number] 50mg Take 1 Un calli (ULTRAM) 50 1-28 tablet by ity of mg tablet 00:00: mouth [place] 00 every 6 Medical (six) Branch hours as needed for Pain (scale 7-10). traMADOL 0 Yes [id number] 50mg Take 1 Un calli (ULTRAM) 50 1-28 tablet by ity of mg tablet 00:00: mouth [place] 00 every 6 Medical (six) Branch hours as needed for Pain (scale 7-10). traMADOL Yes [id number] 50mg Take 1 Un calli (ULTRAM) 50 1-28 tablet by ity of mg tablet 00:00: mouth [place] 00 every 6 Medical (six) Branch hours as needed for Pain (scale 7-10). traMADOL 2019-0 Yes [id number] 50mg Take 1 Un calli (ULTRAM) 50 1-28 tablet by ity of mg tablet 00:00: mouth [place] 00 every 6 Medical (six) Branch hours as needed for Pain (scale 7-10). traMADOL 50 2018-0 Yes 50mg Take 1 Univ ers mg tablet 8-09 tablet by ity o f 00:00: mouth [place] 00 every 6 Medical (six) Branch hours as needed for Pain (scale 4-6). traMADOL 50 2018-0 Yes 50mg Take 1 Univ ers mg tablet 8-09 tablet by ity o f 00:00: mouth [place] 00 every 6 Medical (six) Branch hours as needed for Pain (scale 4-6). traMADOL 50 2018-0 Yes 50mg Take 1 Univ ers mg tablet 8-09 tablet by ity o f 00:00: mouth [place] 00 every 6 Medical (six) Branch hours as needed for Pain (scale 4-6). traMADOL 50 2018-0 Yes 50mg Take 1 Univ ers mg tablet 8-09 tablet by ity o f 00:00: mouth [place] 00 every 6 Medical (six) Branch hours as needed for Pain (scale 4-6). traMADOL 50 2018-0 Yes 50mg Take 1 Univ ers mg tablet 8-09 tablet by ity o f 00:00: mouth [place] 00 every 6 Medical (six) Branch hours as needed for Pain (scale 4-6). traMADOL 50 2018-0 Yes 50mg Take 1 Univ ers mg tablet 8-09 tablet by ity o f 00:00: mouth [place] 00 every 6 Medical (six) Branch hours as needed for Pain (scale 4-6). traMADOL 50 2018-0 Yes 50mg Take 1 Univ ers mg tablet 8-09 tablet by ity o f 00:00: mouth [place] 00 every 6 Medical (six) Branch hours as needed for Pain (scale 4-6). butalbital- 2016- Yes 1{tbl} Take 1 Un calli acetaminoph 1-09 tablet by ity of en-caff 00:00: mouth [place] 50-325-40 00 every 8 Medical mg tablet (eight) Branch hours. butalbital- 2016- Yes 1{tbl} Take 1 Un calli acetaminoph 1-09 tablet by ity of en-caff 00:00: mouth [place] 50-325-40 00 every 8 Medical mg tablet (eight) Branch hours. butalbital- 2016-03 Yes 1{tbl} Take 1 Un calli acetaminoph 1-09 tablet by ity of en-caff 00:00: mouth [place] 50-325-40 00 every 8 Medical mg tablet (eight) Branch hours. butalbital2016-03 Yes 1{tbl} Take 1 Un calli acetaminoph 1-09 tablet by ity of en-caff 00:00: mouth [place] 50-325-40 00 every 8 Medical mg tablet (eight) Branch hours. butalbital2016-03 Yes 1{tbl} Take 1 Un calli acetaminoph 1-09 tablet by ity of en-caff 00:00: mouth [place] 50-325-40 00 every 8 Medical mg tablet (eight) Branch hours. maryalbital2016-03 Yes 1{tbl} Take 1 Un calli acetaminoph 1-09 tablet by ity of en-caff 00:00: mouth [place] 50-325-40 00 every 8 Medical mg tablet (eight) Branch hours. butalbital2016-03 Yes 1{tbl} Take 1 Un calli acetaminoph 1-09 tablet by ity of en-caff 00:00: mouth [place] 50-325-40 00 every 8 Medical mg tablet (eight) Branch hours. ESOMEPRAZOL 2016-0 Yes Take by Uni vers E MAGNESIUM 8-06 mouth. ity of (NEXIUM 17:52: [place] ORAL) [address] [place] [address] Branch ESOMEPRAZOL 2016-0 Yes Take by Uni vers E MAGNESIUM 8-06 mouth. ity of (NEXIUM 17:52: [place] ORAL) [address] [place] [address] Branch ESOMEPRAZOL Yes Take by Uni vers E MAGNESIUM 8-06 mouth. ity of (NEXIUM 17:52: [place] ORAL) [address] [place] [address] Branch ATENOLOL Yes Take by Univer s ORAL 8-06 mouth. ity of 17:36: [address] ATENOLOL Yes Take by Lumi Shanghaier s ORAL 8-06 mouth. ity of 17:36: [address] ATENOLOL 2017-0 Yes Take by Univer s ORAL 8-06 mouth. ity of 17:36: [place] 11 Medical Branch traMADOL 2017-0 Yes 50mg Take 1 Univers (ULTRAM) 50 8-06 tablet by ity of mg tablet 00:00: mouth [place] 00 every 6 Medical (six) Branch hours as needed for Pain (scale 4-6). ranitidine 2017-0 Yes 150mg Take 1 Univ ers (ZANTAC) 8-06 tablet by ity of 150 mg 00:00: mouth 2 [place] tablet 00 (two) Medical times Branch daily. Follow up with your MD for further evaluation and treatment. traMADOL 2017-0 Yes 50mg Take 1 Univers (ULTRAM) 50 8-06 tablet by ity of mg tablet 00:00: mouth [place] 00 every 6 Medical (six) Branch hours as needed for Pain (scale 4-6). ranitidine 2017-0 Yes 150mg Take 1 Univ ers (ZANTAC) 8-06 tablet by ity of 150 mg 00:00: mouth 2 [place] tablet 00 (two) Medical times Branch daily. Follow up with your MD for further evaluation and treatment. traMADOL 2017-0 Yes 50mg Take 1 Univers (ULTRAM) 50 8-06 tablet by ity of mg tablet 00:00: mouth [place] 00 every 6 Medical (six) Branch hours as needed for Pain (scale 4-6). ranitidine 2017-0 Yes 150mg Take 1 Univ ers (ZANTAC) 8-06 tablet by ity of 150 mg 00:00: mouth 2 [place] tablet 00 (two) Medical times Branch daily. Follow up with your MD for further evaluation and treatment. traMADOL 2017-0 Yes 50mg Take 1 Univers (ULTRAM) 50 8-06 tablet by ity of mg tablet 00:00: mouth [place] 00 every 6 Medical (six) Branch hours as needed for Pain (scale 4-6). ranitidine 2017-0 Yes 150mg Take 1 Univ ers (ZANTAC) 8-06 tablet by ity of 150 mg 00:00: mouth 2 [place] tablet 00 (two) Medical times Branch daily. Follow up with your MD for further evaluation and treatment. traMADOL 2017-0 Yes 50mg Take 1 Univers (ULTRAM) 50 8-06 tablet by ity of mg tablet 00:00: mouth [place] 00 every 6 Medical (six) Branch hours as needed for Pain (scale 4-6). ranitidine 2017-0 Yes 150mg Take 1 Univ ers (ZANTAC) 8-06 tablet by ity of 150 mg 00:00: mouth 2 [place] tablet 00 (two) Medical times Branch daily. Follow up with your MD for further evaluation and treatment. traMADOL 2017-0 Yes 50mg Take 1 Univers (ULTRAM) 50 8-06 tablet by ity of mg tablet 00:00: mouth [place] 00 every 6 Medical (six) Branch hours as needed for Pain (scale 4-6). ranitidine 2017-0 Yes 150mg Take 1 Univ ers (ZANTAC) 8-06 tablet by ity of 150 mg 00:00: mouth 2 [place] tablet 00 (two) Medical times Branch daily. Follow up with your MD for further evaluation and treatment. traMADOL 2017-0 Yes 50mg Take 1 Univers (ULTRAM) 50 8-06 tablet by ity of mg tablet 00:00: mouth [place] 00 every 6 Medical (six) Branch hours as needed for Pain (scale 4-6). ranitidine 2017-0 Yes 150mg Take 1 Univ ers (ZANTAC) 8-06 tablet by ity of 150 mg 00:00: mouth 2 [place] tablet 00 (two) Medical times Branch daily. Follow up with your MD for further evaluation and treatment. meloxicam 2012-0 Yes 7.5mg Take 1 Tab U nivers (MOBIC) 7.5 6-27 by mouth 2 it y of mg tablet 00:00: (two) [place] 00 times Medical daily. Branch methocarbam 2012-0 Yes 750mg Take 1 Tab Univers ol 6-27 by mouth 3 ity of (ROBAXIN-75 00:00: (three) [place] as 0) 750 mg 00 times Medical tablet daily. Branch meloxicam 2012-0 Yes 7.5mg Take 1 Tab U nivers (MOBIC) 7.5 6-27 by mouth 2 it y of mg tablet 00:00: (two) [place] 00 times Medical daily. Branch methocarbam 2012-0 Yes 750mg Take 1 Tab Univers ol 6-27 by mouth 3 ity of (ROBAXIN-75 00:00: (three) [place] as 0) 750 mg 00 times Medical tablet daily. Branch meloxicam 2012-0 Yes 7.5mg Take 1 Tab U nivers (MOBIC) 7.5 6-27 by mouth 2 it y of mg tablet 00:00: (two) [place] 00 times Medical daily. Branch methocarbam Yes 750mg Take 1 Tab Univers ol 6-27 by mouth 3 ity of (ROBAXIN-75 00:00: (three) [place] 0) 750 mg 00 times Medical tablet daily. Branch meloxicam Yes 7.5mg Take 1 Tab U nivers (MOBIC) 7.5 6-27 by mouth 2 it y of mg tablet 00:00: (two) [place] 00 times Medical daily. Branch methocarbam Yes 750mg Take 1 Tab Univers ol 6-27 by mouth 3 ity of (ROBAXIN-75 00:00: (three) [place] 0) 750 mg 00 times Medical tablet daily. Branch meloxicam Yes 7.5mg Take 1 Tab U nivers (MOBIC) 7.5 6-27 by mouth 2 it y of mg tablet 00:00: (two) [place] 00 times Medical daily. Branch methocarbam Yes 750mg Take 1 Tab Univers ol 6-27 by mouth 3 ity of (ROBAXIN-75 00:00: (three) [place] 0) 750 mg 00 times Medical tablet daily. Branch meloxicam Yes 7.5mg Take 1 Tab U nivers (MOBIC) 7.5 6-27 by mouth 2 it y of mg tablet 00:00: (two) [place] 00 times Medical daily. Branch methocarbam Yes 750mg Take 1 Tab Univers ol 6-27 by mouth 3 ity of (ROBAXIN-75 00:00: (three) [place] 0) 750 mg 00 times Medical tablet daily. Branch meloxicam Yes 7.5mg Take 1 Tab U nivers (MOBIC) 7.5 6-27 by mouth 2 it y of mg tablet 00:00: (two) [place] 00 times Medical daily. Branch methocarbam Yes 750mg Take 1 Tab Univers ol 6-27 by mouth 3 ity of (ROBAXIN-75 00:00: (three) [place] 0) 750 mg 00 times Medical tablet daily. Branch Yes Take one Unive rs VIT-IRON 4-08 tablet by ity of FUMARATE-FA 00:00: mouth [place] 60-1 MG 00 daily Medical ORAL TAB Branch DOCUSATE Yes Take one Unive rs CALCIUM 240 4-08 capsule by it y of MG ORAL CAP 00:00: mouth [place] 00 daily as Medical needed for Branch constipati on FERROUS Yes Take one Univer s SULFATE 300 4-08 tablet by ity of (60) MG 00:00: mouth [place] ORAL TAB 00 twice Medical daily Branch HYDROCODONE Yes Take one Un calli -ACETAMINOP 4-08 tablet by ity of HEN 5-325 00:00: mouth [place] MG ORAL TAB 00 every six Med ical hours as Branch needed for pain IBUPROFEN Yes Take one Univ ers 600 MG ORAL 4-08 tablet by ity of TAB 00:00: mouth [place] 00 every six Medical hours as Branch needed for pain Yes Take one Unive rs VIT-IRON 4-08 tablet by ity of FUMARATE-FA 00:00: mouth [place] 60-1 MG 00 daily Medical ORAL TAB Branch DOCUSATE Yes Take one Unive rs CALCIUM 240 4-08 capsule by it y of MG ORAL CAP 00:00: mouth [place] 00 daily as Medical needed for Branch constipati on FERROUS Yes Take one Univer s SULFATE 300 4-08 tablet by ity of (60) MG 00:00: mouth [place] ORAL TAB 00 twice Medical daily Branch HYDROCODONE Yes Take one Un calli -ACETAMINOP 4-08 tablet by ity of HEN 5-325 00:00: mouth [place] MG ORAL TAB 00 every six Med ical hours as Branch needed for pain IBUPROFEN Yes Take one Univ ers 600 MG ORAL 4-08 tablet by ity of TAB 00:00: mouth [place] 00 every six Medical hours as Branch needed for pain Yes Take one Unive rs VIT-IRON 4-08 tablet by ity of FUMARATE-FA 00:00: mouth [place] 60-1 MG 00 daily Medical ORAL TAB Branch DOCUSATE Yes Take one Unive rs CALCIUM 240 4-08 capsule by it y of MG ORAL CAP 00:00: mouth [place] 00 daily as Medical needed for Branch constipati on FERROUS Yes Take one Univer s SULFATE 300 4-08 tablet by ity of (60) MG 00:00: mouth [place] ORAL TAB 00 twice Medical daily Branch HYDROCODONE Yes Take one Un calli -ACETAMINOP 4-08 tablet by ity of HEN 5-325 00:00: mouth [place] MG ORAL TAB 00 every six Med ical hours as Branch needed for pain IBUPROFEN Yes Take one Univ ers 600 MG ORAL 4-08 tablet by ity of TAB 00:00: mouth [place] 00 every six Medical hours as Branch needed for pain Yes Take one Unive rs VIT-IRON 4-08 tablet by ity of FUMARATE-FA 00:00: mouth [place] 60-1 MG 00 daily Medical ORAL TAB Branch Yes Take one Unive rs VIT-IRON 4-08 tablet by ity of FUMARATE-FA 00:00: mouth [place] 60-1 MG 00 daily Medical ORAL TAB Branch DOCUSATE Yes Take one Unive rs CALCIUM 240 4-08 capsule by it y of MG ORAL CAP 00:00: mouth [place] 00 daily as Medical needed for Branch constipati on FERROUS Yes Take one Univer s SULFATE 300 4-08 tablet by ity of (60) MG 00:00: mouth [place] ORAL TAB 00 twice Medical daily Branch HYDROCODONE Yes Take one Un calli -ACETAMINOP 4-08 tablet by ity of HEN 5-325 00:00: mouth [place] MG ORAL TAB 00 every six Med ical hours as Branch needed for pain IBUPROFEN Yes Take one Univ ers 600 MG ORAL 4-08 tablet by ity of TAB 00:00: mouth [place] 00 every six Medical hours as Branch needed for pain DOCUSATE Yes Take one Unive rs CALCIUM 240 4-08 capsule by it y of MG ORAL CAP 00:00: mouth [place] 00 daily as Medical needed for Branch constipati on FERROUS Yes Take one Univer s SULFATE 300 4-08 tablet by ity of (60) MG 00:00: mouth [place] ORAL TAB 00 twice Medical daily Branch HYDROCODONE Yes Take one Un calli -ACETAMINOP 4-08 tablet by ity of HEN 5-325 00:00: mouth [place] MG ORAL TAB 00 every six Med ical hours as Branch needed for pain IBUPROFEN Yes Take one Univ ers 600 MG ORAL 4-08 tablet by ity of TAB 00:00: mouth [place] 00 every six Medical hours as Branch needed for pain Yes Take one Unive rs VIT-IRON 4-08 tablet by ity of FUMARATE-FA 00:00: mouth [place] 60-1 MG 00 daily Medical ORAL TAB Branch DOCUSATE Yes Take one Unive rs CALCIUM 240 4-08 capsule by it y of MG ORAL CAP 00:00: mouth [place] 00 daily as Medical needed for Branch constipati on FERROUS Yes Take one Univer s SULFATE 300 4-08 tablet by ity of (60) MG 00:00: mouth [place] ORAL TAB 00 twice Medical daily Branch HYDROCODONE Yes Take one Un calli -ACETAMINOP 4-08 tablet by ity of HEN 5-325 00:00: mouth [place] MG ORAL TAB 00 every six Med ical hours as Branch needed for pain IBUPROFEN Yes Take one Univ ers 600 MG ORAL 4-08 tablet by ity of TAB 00:00: mouth [place] 00 every six Medical hours as Branch needed for pain Yes Take one Unive rs VIT-IRON 4-08 tablet by ity of FUMARATE-FA 00:00: mouth [place] 60-1 MG 00 daily Medical ORAL TAB Branch DOCUSATE Yes Take one Unive rs CALCIUM 240 4-08 capsule by it y of MG ORAL CAP 00:00: mouth [place] 00 daily as Medical needed for Branch constipati on FERROUS Yes Take one Univer s SULFATE 300 4-08 tablet by ity of (60) MG 00:00: mouth [place] ORAL TAB 00 twice Medical daily Branch HYDROCODONE Yes Take one Un calli -ACETAMINOP 4-08 tablet by ity of HEN 5-325 00:00: mouth [place] MG ORAL TAB 00 every six Med ical hours as Branch needed for pain IBUPROFEN Yes Take one Univ ers 600 MG ORAL 4-08 tablet by ity of TAB 00:00: mouth [place] 00 every six Medical hours as Branch needed for pain Vital Signs Vital Name Observation Time Observation Value Comments Source Systolic blood 2022-08-22 18:07:00 133 mm[Hg] Univer sity of [facility] [place] [facility] Diastolic blood 2022-08-22 18:07:00 88 mm[Hg] Unive rsity of pressure [place] [facility] Heart rate 2022-08-22 18:07:00 73 /min [facility] Body temperature 2022-08-22 18:05:00 36.83 Sarina Univ ers[facility] [place] [facility] Respiratory rate 2022-08-22 18:05:00 16 /min Univ ers[facility] [place] [facility] Body height 2022-08-22 18:05:00 157.5 cm [facility] [place] [facility] Body weight 2022-08-22 18:05:00 66.543 kg [facility] [place] [facility] BMI 2022-08-22 18:05:00 26.83 kg/m2 [facility] [place] [facility] Oxygen saturation in 2022-08-22 18:05:00 100 /min University of Arterial blood by [place] [employer] [facility] oxim[facility] Branch Systolic blood 2022-08-14 14:00:00 134 mm[Hg] Univer sity of pressure [place] [facility] Diastolic blood 2022-08-14 14:00:00 90 mm[Hg] Unive rsity of pressure [place] [facility] Heart rate 2022-08-14 14:00:00 58 /min [facility] [place] [facility] Respiratory rate 2022-08-14 14:00:00 18 /min [facility] [place] [facility] Oxygen saturation in 2022-08-14 14:00:00 99 /min University of Arterial blood by [place] [employer] [facility] Branch Body temperature 2022-08-14 12:19:00 36.67 Sarina [facility] [place] [facility] Body height 2022-08-14 12:19:00 157.5 cm [facility] [place] [facility] Body weight 2022-08-14 12:19:00 64.864 kg [facility] [place] [facility] BMI 2022-08-14 12:19:00 26.16 kg/m2 [facility] [place] [facility] Systolic blood 2022-02-01 09:00:00 144 mm[Hg] Univer sity of pressure [place] [facility] Diastolic blood 2022-02-01 09:00:00 96 mm[Hg] Unive rsity of pressure [place] [facility] Heart rate 2022-02-01 09:00:00 69 /min [facility] [place] [facility] Respiratory rate 2022-02-01 09:00:00 14 /min [facility] [place] [facility] Oxygen saturation in 2022-02-01 09:00:00 98 /min University of Arterial blood by [place] [employer] Pulse oximetry Branch Body temperature 2022-02-01 07:02:00 37.28 Sarina [facility] [place] [facility] Body height 2022-02-01 07:02:00 157.5 cm [facility] Body weight 2022-02-01 07:02:00 77.111 kg [facility] BMI 2022-02-01 07:02:00 31.09 kg/m2 [facility] BP Systolic 2022-02-11 10:50:00 130 mm[Hg] BP Diastolic 2022-02-11 10:50:00 79 mm[Hg] Weight Measured 2022-02-11 10:50:00 165.20 pounds Height Measured 2022-02-11 10:50:00 62.00 inches Body Temperature 2022-02-11 10:50:00 98.50 degrees Heart Rate 2022-02-11 10:50:00 66.00 /min Respiratory Rate 2022-02-11 10:50:00 BP Systolic 2021-09-24 10:08:00 138 mm[Hg] BP Diastolic 2021-09-24 10:08:00 95 mm[Hg] Weight Measured 2021-09-24 10:08:00 170.60 pounds Height Measured 2021-09-24 10:08:00 62.00 inches Body Temperature 2021-09-24 10:08:00 98.80 degrees Heart Rate 2021-09-24 10:08:00 83.00 /min Respiratory Rate 2021-09-24 10:08:00 BP Systolic 2021-05-24 14:36:00 141 mm[Hg] BP Diastolic 2021-05-24 14:36:00 94 mm[Hg] Weight Measured 2021-05-24 14:36:00 171.20 pounds Height Measured 2021-05-24 14:36:00 62.00 inches Body Temperature 2021-05-24 14:36:00 97.50 degrees Heart Rate 2021-05-24 14:36:00 76.00 /min Respiratory Rate 2021-05-24 14:36:00 BP Systolic 2020-08-09 15:04:00 128 mm[Hg] BP Diastolic 2020-08-09 15:04:00 81 mm[Hg] Weight Measured 2020-08-09 15:04:00 168.40 pounds Height Measured 2020-08-09 15:04:00 62.00 inches Body Temperature 2020-08-09 15:04:00 97.20 degrees Heart Rate 2020-08-09 15:04:00 75.00 /min Respiratory Rate 2020-08-09 15:04:00 BP Systolic 2020-07-21 16:28:00 137 mm[Hg] BP Diastolic 2020-07-21 16:28:00 94 mm[Hg] Weight Measured 2020-07-21 16:28:00 169.40 pounds Height Measured 2020-07-21 16:28:00 62.00 inches Body Temperature 2020-07-21 16:28:00 98.20 degrees Heart Rate 2020-07-21 16:28:00 Respiratory Rate 2020-07-21 16:28:00 Procedures Procedure Date / Time Performing Clinician Source Performed ASSIGNMENT OF BENEFITS 2022-08-22 19:17:09 Doctor Unassigned, No [facility] Name Medical Branch MAGNESIUM 2022-08-14 12:45:00 Rosa Akers [facility] COMP. METABOLIC PANEL 2022-08-14 12:45:00 Rosa Akers [facility] ([id number]) [facility] CBC WITH DIFF 2022-08-14 12:45:00 Rosa Akers [facility] URINALYSIS 2022-08-14 12:45:00 Rosa Akers [facility] CONSENT/REFUSAL FOR 2022-08-14 12:10:56 Doctor Unassigned, No [facility] DIAGNOSIS AND TREATMENT Name Medical Branch REFERRAL- 2022-08-14 05:01:00 Doctor Unassigned, No [facility] REQUEST/RESPONSE Name [facility] CT ABDOMEN PELVIS W 2022-02-01 08:38:19 Giles Engle [facility] CONTRAST [facility] LIPASE 2022-02-01 07:01:00 Giles Engle [facility] TROPONIN I 2022-02-01 07:01:00 Giles Engle [facility] COMP. METABOLIC PANEL 2022-02-01 07:01:00 Giles Engle [facility] ([id number]) Medical [place] CBC WITH DIFF 2022-02-01 07:01:00 Giles Engle [facility] PROTHROMBIN TIME / INR 2022-02-01 07:01:00 Giles Engle [facility] ACTIVATED PARTIAL 2022-02-01 07:01:00 Giles Engle [facility] CONSENT/REFUSAL FOR 2022-02-01 06:46:24 Doctor Unassigned, No Un [facility] DIAGNOSIS AND TREATMENT Name [facility] Branch Plan of Care Planned Activity Planned Date Details Comments Source Goal Plan of Care Note [code = 43893-7] Goal Plan of Care Note [code = 08386-0] Goal Plan of Care Note [code = 09154-3] Goal Plan of Care Note [code = 70371-1] Goal Plan of Care Note [code = 50279-7] Goal Plan of Care Note [code = 77691-6] Goal Plan of Care Note [code = 48209-1] Goal Plan of Care Note [code = 25518-7] Goal Plan of Care Note [code = 51536-8] Goal Plan of Care Note [code = 27643-6] Goal Plan of Care Note [code = 37964-0] Goal Plan of Care Note [code = 75464-9] Goal Plan of Care Note [code = 23992-3] Goal Plan of Care Note [code = 43425-4] Goal Plan of Care Note [code = 68932-1] Goal Plan of Care Note [code = 92258-2] Goal Plan of Care Note [code = 30974-4] Goal Plan of Care Note [code = 32917-0] Goal Plan of Care Note [code = 87661-6] Goal Plan of Care Note [code = 95104-8] Goal Plan of Care Note [code = 96178-5] Goal Plan of Care Note [code = 73179-4] Goal Plan of Care Note [code = 21216-7] Goal Plan of Care Note [code = 57676-5] Goal Plan of Care Note [code = 41501-9] Goal Plan of Care Note [code = 96604-6] Goal Plan of Care Note [code = 90440-0] Goal Plan of Care Note [code = 92014-6] Goal Plan of Care Note [code = 89484-7] Goal Plan of Care Note [code = 69893-4] Goal Plan of Care Note [code = 20947-2] Goal Plan of Care Note [code = 51306-9] Goal Plan of Care Note [code = 36449-6] Goal Plan of Care Note [code = 94096-3] Goal Plan of Care Note [code = 57421-5] Goal Plan of Care Note [code = 90538-2] Goal Plan of Care Note [code = 01733-7] Goal Plan of Care Note [code = 22954-1] Goal Plan of Care Note [code = 49670-3] Goal Plan of Care Note [code = 98376-4] Goal Plan of Care Note [code = 38841-5] Goal Plan of Care Note [code = 91384-8] Goal Plan of Care Note [code = 46868-1] Encounters Start End Encounter Admission Attending Care Care Encounter Source Date/Time Date/Time Type Type Clinicians Facility Department ID 2022-08-26 2022-08-26 Outpatient Du [facility] [id number] Univers 09:30:00 09:30:00 OZZY forman [facility] 2022-08-22 2022-08-22 Office SHINE Potts [id number] Univers 13:00:00 13:30:00 Visit Ozzy [facility] 350.1.13.10 i ty of [place] [id number] [place] [id number] [place] 2022-08-22 2022-08-22 Outpatient Du [facility] [id number] Univers 13:00:00 13:00:00 OZZY forman [facility] 2022-08-22 2022-08-22 Glass Crusher [facility] UNIVERSIT [id number] Univers 12:30:00 12:45:00 Visit Delroy Ozzy [facility] 350.1.13.10 ity of [place] [id number] [facility] [address] [place] 2022-08-22 2022-08-22 Orders Doctor HURT [id number] Univers 00:00:00 00:00:00 Only Unassigned, MINESH 350.1.13.10 ity of [place] [facility] 4.2.7.2.686 Marcin as [id number] [facility] 009 Branch 2022-08-14 2022-08-14 [facility] [id number] Univers 07:21:00 09:29:00 ROSA ity of [facility] 2022-08-14 2022-08-14 [facility] [id number] Univers 07:21:00 09:29:00 Rosa Long TESSMOHINDER 350.1.13.10 ity of [place]7.2.686 [place] [facility] [id number] [facility] 084 Branch 2022-08-14 2022-08-14 Orders Doctor LICHA 1.2.840.114 [id number] Univers 00:00:00 00:00:00 Only Unassigned, MINESH 350.1.13.10 ity of [place] [facility] 4.2.7.2.686 Marcin as [id number] [facility] 009 [place] 2022-08-13 2022-08-13 Outpatient SFA SFA [id number]- 202 Earn 13:54:29 13:54:29 [id number] F Hiltons 2022-04-29 2022-04-29 Outpatient SFA SFA [id number]- 202 Eran 10:10:00 10:10:00 [id number] F Hiltons 2022-04-18 2022-04-18 Outpatient SFA SFA [id number] Eran 11:10:21 11:10:21 63771 F Hiltons 2022-02-25 2022-02-25 Outpatient SFA SFA [id number] Eran 14:19:05 14:19:05 67423 F Hiltons 2022-02-21 2022-02-21 Outpatient [id number] 00:00:00 00:00:00 Visit 0248-466d 248-466d-b -q3vd-l1p 8af-m0t595 7444xr83b 1ec10b 2022-02-11 2022-02-11 Outpatient SFA SFA [id number] Eran 10:43:39 10:43:39 75030 F Hiltons 2022-02-11 2022-02-11 Outpatient [id number] 00:00:00 00:00:00 Visit 8m21-0hqi n39-5zpa-2 -903f-bb1 [id number]-ou7160 729d08i5t a78a6d 2022-02-01 2022-02-01 Emergency [facility] [id number] 00:50[facility] 2022-02-01 Emergency [facility] [id number] 2024 00:50:00 03:41:00 [facility] 350.1.13.10 [facility] 4.2.7.2.686 [facility] [id number] [address] 2021-09-24 2021-09-24 Outpatient [id number] 00:00:00 00:00:00 Visit 22b5-2h1k 9i4-7a7z-8 -9dcd-184 dcd-184b4a [id number] 2067e4 Results Test Description Test Time Test Comments Results Result Comments Source MAGNESIUM 2022-08-14 13:43:33 Test Item Value Reference Range Interpretation Comme nts MAGNESIUM (test code = 4970835450) 2.0 mg/dL 1.7-2.4 Lab Interpretation (test code = 22875-8) [facility]14 13:42:52 Test Item Value Reference Range Interpretation Comments NA (test code = 141 mmol/L 135-145 5724195818) K (test code = 4.0 mmol/L 3.5-5.0 1175684194) CL (test code = 105 mmol/L 98-108 1076808648) CO2 TOTAL (test code = 30 mmol/L -31 1090436532) AGAP (test code = 6 2-16 3968133782) BUN (test code = 11 mg/dL 7-23 4108798934) GLUCOSE (test code = 67 mg/dL 70-110 L 0241021242) CREATININE (test code = 0.76 mg/dL 0.50-1.04 4788775027) TOTAL BILI (test code = 0.5 mg/dL 0.1-1.2 5306940465) CALCIUM (test code = 9.2 mg/dL 8.6-10.6 3594162980) T PROTEIN (test code = 7.2 g/dL 6.3-8.2 3414624709) ALBUMIN (test code = 4.2 g/dL 3.5-5.0 5209201206) ALK PHOS (test code = 93 U/L 34-122 0239784284) ALTv (test code = 13 U/L 5-35 1742-6) AST(SGOT) (test code = 18 U/L 13-40 7592944427) eGFR (test code = 83.1 mL/min/1.73m2 1456641060) MIGUEL ÁNGEL (test code = MIGUEL ÁNGEL) Association of Glomerular Filtration Rate (GFR) and Staging of Kidney Disease* + --+ --+ ------+| GFR (mL/min/1.73 m2) ?| With Kidney Damage ?| ?Without Kidney Damage+ --------+ --------+ +| ?>90 ?| ?Stage one ?| ? Normal ?+ ---+ ---+ -------+| ?60-89 ?| ?Stage two ?| ? Decreased GFR ? + --+ --+ ------+| ?30-59 ?| ?Stage three ?| ? Stage three ? + --+ --+ ------+| ?15-29 ?| ?Stage four ? | ? Stage four ?+ ---+ ---+ -------+| ?<15 (or dialysis) ? ?| ?Stage five ? | ? Stage five ?+ ---+ ---+ -------+ *Each stage assumes the associated GFR level has been in effect for at least three months. ?Stages 1 to 5, with or without kidney disease, indicate chronic kidney disease. Notes: Determination of stages one and two (with eGFR >59mL/min/1.73 m2) requires estimation of kidney damage for at least three months as defined by structural or functional abnormalities of the kidney, manifested by either:Pathological abnormalities or Markers of kidney damage (including abnormalities in the composition of the blood or urine or abnormalities in imaging tests). Lab Interpretation Abnormal (test code = 86434-5) [facility] WITH [id number] 13:31:27 Test Item Value Reference Range Interpretation Comments WBC (test code = 10.86 See_Comment [Automated 6690-2) message] The sy stem which generated this result transmitted reference range : 4.30 - 11.10 10*3/?L. The reference range was not used to interpret this result as normal/abnormal . RBC (test code = 4.69 See_Comment [Automated 789-8) message] The sy stem which generated this result transmitted reference range : 3.93 - 5.25 10*6/?L. The reference range was not used to interpret this result as normal/abnormal . HGB (test code = 15.1 g/dL 11.6-15.0 H 718-7) HCT (test code = 44.7 % 35.7-45.2 4544-3) MCV (test code = 95.3 fL 80.6-95.5 787-2) MCH (test code = 32.2 pg 25.9-32.8 785-6) MCHC (test code = 33.8 g/dL 31.6-35.1 786-4) RDW-SD (test code = 45.4 fL 39.0-49.9 72539-4) RDW-CV (test code = 13.0 % 12.0-15.5 788-0) PLT (test code = 221 See_Comment [Automated 777-3) message] The sy stem which generated this result transmitted reference range : 166 - 358 10*3/ ?L. The reference r malena was not used to interpret this result as normal/abnormal . MPV (test code = 10.3 fL 9.5-12.9 60048-5) NRBC/100 WBC (test 0.0 See_Comment [Automat ed code = 1799801059) message] The system which generated this result transmitted reference range : 0.0 - 10.0 /100 WBCs. The refer ence range was not u sed to interpret th is result as normal/abnormal . NRBC x10^3 (test code See_Comment [Auto mated = 3837453761) message] The s ystem which generated this result transmitted reference range : 10*3/?L. The reference range was not used to interpret this result as normal/abnormal . GRAN MAT (NEUT) % 69.0 % (test code = 770-8) IMM GRAN % (test code 0.40 % = 5974931134) LYMPH % (test code = 25.1 % 736-9) MONO % (test code = 4.1 % 5905-5) EOS % (test code = 0.9 % 713-8) BASO % (test code = 0.5 % 706-2) GRAN MAT x10^3(ANC) 7.49 10*3/uL 1.88-7.09 H (test code = 5278076647) IMM GRAN x10^3 (test 0.04 10*3/uL 0.00-0.06 code = 4052246176) LYMPH x10^3 (test code 2.73 10*3/uL 1.32-3.29 = 731-0) MONO x10^3 (test code 0.45 10*3/uL 0.33-0.92 = 742-7) EOS x10^3 (test code = 0.10 10*3/uL 0.03-0.39 711-2) BASO x10^3 (test code 0.05 10*3/uL 0.01-0.07 = 704-7) Lab Interpretation Abnormal (test code = 96532-5) [facility] [id number] 06:15:20 Test Item Value Reference Range Interpretation Comments GLUCOSE (test code = 82 MG/DL 70-99 2216) BUN (test code = 10 MG/DL 09-03) CREATININE (test 0.86 MG/DL 0.60-1.30 code = 2214) eGFR (2020 CKD-EPI) 86 >60 (test code = 34061) ML/MIN/1.73 CALC BUN/CREAT (test 12 RATIO 09-11 code = 2235) SODIUM (test code = 142 MEQ/L 629-729 5091) POTASSIUM (test code 4.4 MEQ/L 3.5-5.4 = 2227) CHLORIDE (test code 105 MEQ/L 95-107 = 5) CARBON DIOXIDE (test 23 MEQ/L 19-31 code = 2206) CALCIUM (test code = 9.4 MG/DL 8.5-10.5 2208) PROTEIN, TOTAL (test 7.0 G/DL 6.1-8.3 code = 2229) ALBUMIN (test code = 4.4 G/DL 3.5-5.2 2200) CALC GLOBULIN (test 2.6 G/DL 1.9-3.7 code = 2240) CALC A/G RATIO (test 1.7 RATIO 1.0-2.6 code = 2234) BILIRUBIN, TOTAL 0.3 MG/DL See_Comment [Automated message] (test code = 220) The syste m which generated this result transmitted ref erence range: <=1.2. T he reference range was not used to int erpret this result as normal/abnormal . ALKALINE PHOSPHATASE 90 U/L 40-113 (test code = 220) AST (test code = 14 U/L 9-40 2217) ALT (test code = 15 U/L 5-40 UNLESS OTH ERWISE 2218) INDICATED, ALL TESTING PERFORM ED ATCLINICAL PATH OLOGY LABORATORIES, [facility]. [address] [place] [id number] [place] [address] DIRECTOR: MALATHI ROLLINS M.D. CLIA NUMBER [id number] CAP ACCREDITATION N O. [id number] LIPID [id number] 06:15:20 Test Item Value Reference Range Interpretation Comments CHOLESTEROL (test 145 MG/DL <200 code = 2210) TRIGLYCERIDES (test 76 MG/DL <150 code = 2232) HDL CHOLESTEROL (test 34 MG/DL >39 L code = 2220) CALC LDL CHOL (test 94 MG/DL <100 NOTE: C ALCULATED LDL code = 2237) IS BASED ON DANIA-GARCIA METHOD WHICHINCLUDES ADJUSTABLE TRIGLYCERIDE:VL DL CHOLESTEROL RAT IO.THIS FACTOR VARIES B Y MEASURED TRIGLY CERIDE AND NON-HDLCHOL ESTEROL CONCENTRATIONS WITH INCREASED CALCU LATED LDL SEENIN HIGH ER TRIGLYCERIDE OR LOWER NON-HDL SPECIME NS. FOR MOREINFORMATION , SEE CLIENT ANNOUNCE MENT AT [email or web address] RISK RATIO LDL/HDL 2.76 RATIO <3.22 (test code = 2238) HEMOGLOBIN [id number] 02:02:36 Test Item Value Reference Range Interpretation Comments HEMOGLOBIN A1c (test code = 24947) 5.5 % 4.2-5.6 CBC W/AUTO DIFF WITH [id number] 11:54:54 Test Item Value Reference Range Interpretation Comments WBC (test code = 6.3 K/UL 3.5-11.0 1001) RBC (test code = 4.48 M/UL 3.80-5.40 1002) HEMOGLOBIN (test 14.3 G/DL 11.5-15.5 code = 1003) HEMATOCRIT (test 42.0 % 34.0-45.0 code = 1004) MCV (test code = 93.8 fL 80.0-99.0 1005) MCH (test code = 31.9 PG 25.0-33.0 1006) MCHC (test code = 34.0 G/DL 31.0-36.0 1007) RDW (test code = 12.7 % 11.5-15.0 1038) NEUTROPHILS (test 74.5 % code = 1008) LYMPHOCYTES (test 13.4 % code = 1010) MONOCYTES (test code 9.7 % = 1011) EOSINOPHILS (test 1.3 % code = 1012) BASOPHILS (test code 0.6 % = 1013) IMMATURE 0.5 % GRANULOCYTES (test code = 1036) NUCLEATED RBCS (test 0.0 /100 See_Comment [Autom ated message] code = 1065) WBC'S The system [employer] generated this result transmitted ref erence range: 0.0. The reference range was not used to int erpret this result as normal/abnormal . PLATELET COUNT (test 241 K/UL 130-400 code = 1015) ABSOLUTE NEUTROPHILS 4.68 K/UL 1.50-7.50 (test code = 1066) ABSOLUTE LYMPHOCYTES 0.84 K/UL 1.00-4.00 L (test code = 1067) ABSOLUTE MONOCYTES 0.61 K/UL 0.20-1.00 (test code = 1068) ABSOLUTE EOSINOPHILS 0.08 K/UL 0.00-0.50 (test code = 1040) ABSOLUTE BASOPHILS 0.04 K/UL 0.00-0.20 (test code = 1069) ABS IMMATURE 0.03 K/UL 0.00-0.10 GRANULOCYTES (test code = 1020) ABS NUCLEATED RBCS 0.00 K/UL 0.00-0.11 UNLESS O THERWISE (test code = 74216) INDICATE D, ALL TESTING PERFORM ED ATCLINICAL PATH OLOGY LABORATORIES, [place]. [address] [facility] [place] [address] [facility] DIRECTOR: MALATHI ROLLINS M.D. CLIA NUMBER [id number] CAP ACCREDITATION N O. [id number] CBC W/AUTO DIFF WITH PLATELETS [ADDED]2021-09-25 00:00:00 Test Item Value Reference Range Interpretation Comments WBC (test code = 1001) 6.3 K/UL RBC (test code = 1002) 4.48 M/UL HEMOGLOBIN (test code = 1003) 14.3 G/DL HEMATOCRIT (test code = 1004) 42.0 % MCV (test code = 1005) 93.8 fL MCH (test code = 1006) 31.9 PG MCHC (test code = 1007) 34.0 G/DL RDW (test code = 1038) 12.7 % NEUTROPHILS (test code = 1008) 74.5 % LYMPHOCYTES (test code = 1010) 13.4 % MONOCYTES (test code = 1011) 9.7 % EOSINOPHILS (test code = 1012) 1.3 % BASOPHILS (test code = 1013) 0.6 % IMMATURE GRANULOCYTES (test 0.5 % code = 1036) NUCLEATED RBCS (test code = 0.0 /100WBC'S 1065) PLATELET COUNT (test code = 241 K/UL 1015) ABSOLUTE NEUTROPHILS (test code 4.68 K/UL = 1066) ABSOLUTE LYMPHOCYTES (test code 0.84 K/UL = 1067) ABSOLUTE MONOCYTES (test code = 0.61 K/UL 1068) ABSOLUTE EOSINOPHILS (test code 0.08 K/UL = 1040) ABSOLUTE BASOPHILS (test code = 0.04 K/UL 1069) ABS IMMATURE GRANULOCYTES (test 0.03 K/UL code = 1020) ABS NUCLEATED RBCS (test code = 0.00 K/UL 55520) CBC W/AUTO DIFF WITH PLATELETS [ADDED]2021-09-25 00:00:00 Test Item Value Reference Range Interpretation Comments WBC (test code = 1001) 6.3 K/UL RBC (test code = 1002) 4.48 M/UL HEMOGLOBIN (test code = 1003) 14.3 G/DL HEMATOCRIT (test code = 1004) 42.0 % MCV (test code = 1005) 93.8 fL MCH (test code = 1006) 31.9 PG MCHC (test code = 1007) 34.0 G/DL RDW (test code = 1038) 12.7 % NEUTROPHILS (test code = 1008) 74.5 % LYMPHOCYTES (test code = 1010) 13.4 % MONOCYTES (test code = 1011) 9.7 % EOSINOPHILS (test code = 1012) 1.3 % BASOPHILS (test code = 1013) 0.6 % IMMATURE GRANULOCYTES (test 0.5 % code = 1036) NUCLEATED RBCS (test code = 0.0 /100WBC'S 1065) PLATELET COUNT (test code = 241 K/UL 1015) ABSOLUTE NEUTROPHILS (test code 4.68 K/UL = 1066) ABSOLUTE LYMPHOCYTES (test code 0.84 K/UL = 1067) ABSOLUTE MONOCYTES (test code = 0.61 K/UL 1068) ABSOLUTE EOSINOPHILS (test code 0.08 K/UL = 1040) ABSOLUTE BASOPHILS (test code = 0.04 K/UL 1069) ABS IMMATURE GRANULOCYTES (test 0.03 K/UL code = 1020) ABS NUCLEATED RBCS (test code = 0.00 K/UL 34446) CBC W/AUTO DIFF WITH PLATELETS [ADDED]2021-09-25 00:00:00 Test Item Value Reference Range Interpretation Comments WBC (test code = 1001) 6.3 K/UL RBC (test code = 1002) 4.48 M/UL HEMOGLOBIN (test code = 1003) 14.3 G/DL HEMATOCRIT (test code = 1004) 42.0 % MCV (test code = 1005) 93.8 fL MCH (test code = 1006) 31.9 PG MCHC (test code = 1007) 34.0 G/DL RDW (test code = 1038) 12.7 % NEUTROPHILS (test code = 1008) 74.5 % LYMPHOCYTES (test code = 1010) 13.4 % MONOCYTES (test code = 1011) 9.7 % EOSINOPHILS (test code = 1012) 1.3 % BASOPHILS (test code = 1013) 0.6 % IMMATURE GRANULOCYTES (test 0.5 % code = 1036) NUCLEATED RBCS (test code = 0.0 /100WBC'S 1065) PLATELET COUNT (test code = 241 K/UL 1015) ABSOLUTE NEUTROPHILS (test code 4.68 K/UL = 1066) ABSOLUTE LYMPHOCYTES (test code 0.84 K/UL = 1067) ABSOLUTE MONOCYTES (test code = 0.61 K/UL 1068) ABSOLUTE EOSINOPHILS (test code 0.08 K/UL = 1040) ABSOLUTE BASOPHILS (test code = 0.04 K/UL 1069) ABS IMMATURE GRANULOCYTES (test 0.03 K/UL code = 1020) ABS NUCLEATED RBCS (test code = 0.00 K/UL 27731) CBC W/AUTO DIFF WITH PLATELETS [ADDED]2021-09-25 00:00:00 Test Item Value Reference Range Interpretation Comments WBC (test code = 1001) 6.3 K/UL RBC (test code = 1002) 4.48 M/UL HEMOGLOBIN (test code = 1003) 14.3 G/DL HEMATOCRIT (test code = 1004) 42.0 % MCV (test code = 1005) 93.8 fL MCH (test code = 1006) 31.9 PG MCHC (test code = 1007) 34.0 G/DL RDW (test code = 1038) 12.7 % NEUTROPHILS (test code = 1008) 74.5 % LYMPHOCYTES (test code = 1010) 13.4 % MONOCYTES (test code = 1011) 9.7 % EOSINOPHILS (test code = 1012) 1.3 % BASOPHILS (test code = 1013) 0.6 % IMMATURE GRANULOCYTES (test 0.5 % code = 1036) NUCLEATED RBCS (test code = 0.0 /100WBC'S 1065) PLATELET COUNT (test code = 241 K/UL 1015) ABSOLUTE NEUTROPHILS (test code 4.68 K/UL = 1066) ABSOLUTE LYMPHOCYTES (test code 0.84 K/UL = 1067) ABSOLUTE MONOCYTES (test code = 0.61 K/UL 1068) ABSOLUTE EOSINOPHILS (test code 0.08 K/UL = 1040) ABSOLUTE BASOPHILS (test code = 0.04 K/UL 1069) ABS IMMATURE GRANULOCYTES (test 0.03 K/UL code = 1020) ABS NUCLEATED RBCS (test code = 0.00 K/UL 44022) CBC W/AUTO DIFF WITH PLATELETS [ADDED]2021-09-25 00:00:00 Test Item Value Reference Range Interpretation Comments WBC (test code = 1001) 6.3 K/UL RBC (test code = 1002) 4.48 M/UL HEMOGLOBIN (test code = 1003) 14.3 G/DL HEMATOCRIT (test code = 1004) 42.0 % MCV (test code = 1005) 93.8 fL MCH (test code = 1006) 31.9 PG MCHC (test code = 1007) 34.0 G/DL RDW (test code = 1038) 12.7 % NEUTROPHILS (test code = 1008) 74.5 % LYMPHOCYTES (test code = 1010) 13.4 % MONOCYTES (test code = 1011) 9.7 % EOSINOPHILS (test code = 1012) 1.3 % BASOPHILS (test code = 1013) 0.6 % IMMATURE GRANULOCYTES (test 0.5 % code = 1036) NUCLEATED RBCS (test code = 0.0 /100WBC'S 1065) PLATELET COUNT (test code = 241 K/UL 1015) ABSOLUTE NEUTROPHILS (test code 4.68 K/UL = 1066) ABSOLUTE LYMPHOCYTES (test code 0.84 K/UL = 1067) ABSOLUTE MONOCYTES (test code = 0.61 K/UL 1068) ABSOLUTE EOSINOPHILS (test code 0.08 K/UL = 1040) ABSOLUTE BASOPHILS (test code = 0.04 K/UL 1069) ABS IMMATURE GRANULOCYTES (test 0.03 K/UL code = 1020) ABS NUCLEATED RBCS (test code = 0.00 K/UL 67343) CBC W/AUTO DIFF WITH PLATELETS [ADDED]2021-09-25 00:00:00 Test Item Value Reference Range Interpretation Comments WBC (test code = 1001) 6.3 K/UL RBC (test code = 1002) 4.48 M/UL HEMOGLOBIN (test code = 1003) 14.3 G/DL HEMATOCRIT (test code = 1004) 42.0 % MCV (test code = 1005) 93.8 fL MCH (test code = 1006) 31.9 PG MCHC (test code = 1007) 34.0 G/DL RDW (test code = 1038) 12.7 % NEUTROPHILS (test code = 1008) 74.5 % LYMPHOCYTES (test code = 1010) 13.4 % MONOCYTES (test code = 1011) 9.7 % EOSINOPHILS (test code = 1012) 1.3 % BASOPHILS (test code = 1013) 0.6 % IMMATURE GRANULOCYTES (test 0.5 % code = 1036) NUCLEATED RBCS (test code = 0.0 /100WBC'S 1065) PLATELET COUNT (test code = 241 K/UL 1015) ABSOLUTE NEUTROPHILS (test code 4.68 K/UL = 1066) ABSOLUTE LYMPHOCYTES (test code 0.84 K/UL = 1067) ABSOLUTE MONOCYTES (test code = 0.61 K/UL 1068) ABSOLUTE EOSINOPHILS (test code 0.08 K/UL = 1040) ABSOLUTE BASOPHILS (test code = 0.04 K/UL 1069) ABS IMMATURE GRANULOCYTES (test 0.03 K/UL code = 1020) ABS NUCLEATED RBCS (test code = 0.00 K/UL 29365) TSH, THIRD [id number] 08:28:20 Test Item Value Reference Range Interpretation Comments TSH, THIRD GENERATION (test code 1.780 UIU/ML 0.400-4.100 = 2821) COMPREHENSIVE METABOLIC [id number] 08:08:12 Test Item Value Reference Range Interpretation Comments GLUCOSE (test code = 91 MG/DL 70-99 2216) BUN (test code = 13 MG/DL -20 2207) CREATININE (test 0.79 MG/DL 0.60-1.30 code = 2214) eGFR (2020 CKD-EPI) 96 ML/MIN/1.73 >60 (test code = 78603) CALC BUN/CREAT (test 16 RATIO -28 code = 2235) SODIUM (test code = 142 MEQ/L 974-652 6090) POTASSIUM (test code 4.5 MEQ/L 3.5-5.4 = 2227) CHLORIDE (test code 103 MEQ/L 95-107 = 2214) CARBON DIOXIDE (test 27 MEQ/L 19-31 code = 2206) CALCIUM (test code = 9.8 MG/DL 8.5-10.5 2208) PROTEIN, TOTAL (test 7.3 G/DL 6.1-8.3 code = 2229) ALBUMIN (test code = 4.6 G/DL 3.5-5.2 2200) CALC GLOBULIN (test 2.7 G/DL 1.9-3.7 code = 2240) CALC A/G RATIO (test 1.7 RATIO 1.0-2.6 code = 2234) BILIRUBIN, TOTAL <0.2 MG/DL See_Comment [Automated message] (test code = 2207) The syste m which generated this result transmit cameron reference range : <=1.2. The refe rence range was not u sed to interpret th is result as normal/abnormal . ALKALINE PHOSPHATASE 101 U/L 40-113 (test code = 2203) AST (test code = 15 U/L 9-40 2217) ALT (test code = 14 U/L 5-40 2218) LIPID [id number] 08:08:12 Test Item Value Reference Range Interpretation Comments CHOLESTEROL (test 161 MG/DL <200 code = 2210) TRIGLYCERIDES (test 97 MG/DL <150 code = 2232) HDL CHOLESTEROL (test 47 MG/DL >39 code = 2220) CALC LDL CHOL (test 95 MG/DL <100 NOTE: C ALCULATED LDL code = 2237) IS BASED ON DANIA-GARCIA METHOD WHICHINCLUDES ADJUSTABLE TRIGLYCERIDE:VL DL CHOLESTEROL RAT IO.THIS FACTOR VARIES B Y MEASURED TRIGLY CERIDE AND NON-HDLCHOL ESTEROL CONCENTRATIONS WITH INCREASED CALCU LATED LDL SEENIN HIGH ER TRIGLYCERIDE OR LOWER NON-HDL SPECIME NS. FOR MOREINFORMATION , SEE CLIENT ANNOUNCE MENT AT [email or web address] [email or web address] RATIO LDL/HDL 2.02 RATIO <3.22 UNLESS O THERWISE (test code = 2237) INDICATED , ALL TESTING PERFORMED [facility], [address] DIRECTOR: MALATHI ROLLINS M.D. CLIA NUMBER [id number] CAP ACCREDITATION N O. [id number] CBC W/AUTO DIFF WITH [id number] 03:00:30 Test Item Value Reference Range Interpretation Comments WBC (test code = 8.5 K/UL 3.5-11.0 1001) RBC (test code = 4.83 M/UL 3.80-5.40 1002) HEMOGLOBIN (test code 15.3 G/DL 11.5-15.5 = 1003) HEMATOCRIT (test code 44.0 % 34.0-45.0 = 1004) MCV (test code = 91.1 fL 80.0-99.0 1005) MCH (test code = 31.7 PG 25.0-33.0 1006) MCHC (test code = 34.8 G/DL 31.0-36.0 1007) RDW (test code = 12.7 % 11.5-15.0 1038) NEUTROPHILS (test 55.6 % code = 1008) LYMPHOCYTES (test 36.1 % code = 1010) MONOCYTES (test code 5.7 % = 1011) EOSINOPHILS (test 1.5 % code = 1012) BASOPHILS (test code 0.7 % = 1013) IMMATURE GRANULOCYTES 0.4 % (test code = 1036) NUCLEATED RBCS (test 0.0 /100 WBC'S See_Comment [Aut omated code = 1065) message] The sy stem which generated this result transmitted reference range : 0.0. The refere nce range was not u sed to interpret th is result as normal/abnormal . PLATELET COUNT (test 262 K/UL 130-400 code = 1015) ABSOLUTE NEUTROPHILS 4.70 K/UL 1.50-7.50 (test code = 1066) ABSOLUTE LYMPHOCYTES 3.05 K/UL 1.00-4.00 (test code = 1067) ABSOLUTE MONOCYTES 0.48 K/UL 0.20-1.00 (test code = 1068) ABSOLUTE EOSINOPHILS 0.13 K/UL 0.00-0.50 (test code = 1040) ABSOLUTE BASOPHILS 0.06 K/UL 0.00-0.20 (test code = 1069) ABS IMMATURE 0.03 K/UL 0.00-0.10 GRANULOCYTES (test code = 1020) ABS NUCLEATED RBCS 0.00 K/UL 0.00-0.11 (test code = 03013) CBC W/AUTO [id number] 00:00:00 Test Item Value Reference Range Interpretation Comments WBC (test code = 1001) 8.5 K/UL RBC (test code = 1002) 4.83 M/UL HEMOGLOBIN (test code = 1003) 15.3 G/DL HEMATOCRIT (test code = 1004) 44.0 % MCV (test code = 1005) 91.1 fL MCH (test code = 1006) 31.7 PG MCHC (test code = 1007) 34.8 G/DL RDW (test code = 1038) 12.7 % NEUTROPHILS (test code = 1008) 55.6 % LYMPHOCYTES (test code = 1010) 36.1 % MONOCYTES (test code = 1011) 5.7 % EOSINOPHILS (test code = 1012) 1.5 % BASOPHILS (test code = 1013) 0.7 % IMMATURE GRANULOCYTES (test 0.4 % code = 1036) NUCLEATED RBCS (test code = 0.0 /100WBC'S 1065) PLATELET COUNT (test code = 262 K/UL 1015) ABSOLUTE NEUTROPHILS (test code 4.70 K/UL = 1066) ABSOLUTE LYMPHOCYTES (test code 3.05 K/UL = 1067) ABSOLUTE MONOCYTES (test code = 0.48 K/UL 1068) ABSOLUTE EOSINOPHILS (test code 0.13 K/UL = 1040) ABSOLUTE BASOPHILS (test code = 0.06 K/UL 1069) ABS IMMATURE GRANULOCYTES (test 0.03 K/UL code = 1020) ABS NUCLEATED RBCS (test code = 0.00 K/UL 88537) CBC W/AUTO [id number] 00:00:00 Test Item Value Reference Range Interpretation Comments WBC (test code = 1001) 8.5 K/UL RBC (test code = 1002) 4.83 M/UL HEMOGLOBIN (test code = 1003) 15.3 G/DL HEMATOCRIT (test code = 1004) 44.0 % MCV (test code = 1005) 91.1 fL MCH (test code = 1006) 31.7 PG MCHC (test code = 1007) 34.8 G/DL RDW (test code = 1038) 12.7 % NEUTROPHILS (test code = 1008) 55.6 % LYMPHOCYTES (test code = 1010) 36.1 % MONOCYTES (test code = 1011) 5.7 % EOSINOPHILS (test code = 1012) 1.5 % BASOPHILS (test code = 1013) 0.7 % IMMATURE GRANULOCYTES (test 0.4 % code = 1036) NUCLEATED RBCS (test code = 0.0 /100WBC'S 1065) PLATELET COUNT (test code = 262 K/UL 1015) ABSOLUTE NEUTROPHILS (test code 4.70 K/UL = 1066) ABSOLUTE LYMPHOCYTES (test code 3.05 K/UL = 1067) ABSOLUTE MONOCYTES (test code = 0.48 K/UL 1068) ABSOLUTE EOSINOPHILS (test code 0.13 K/UL = 1040) ABSOLUTE BASOPHILS (test code = 0.06 K/UL 1069) ABS IMMATURE GRANULOCYTES (test 0.03 K/UL code = 1020) ABS NUCLEATED RBCS (test code = 0.00 K/UL 59096) CBC W/AUTO [id number] 00:00:00 Test Item Value Reference Range Interpretation Comments WBC (test code = 1001) 8.5 K/UL RBC (test code = 1002) 4.83 M/UL HEMOGLOBIN (test code = 1003) 15.3 G/DL HEMATOCRIT (test code = 1004) 44.0 % MCV (test code = 1005) 91.1 fL MCH (test code = 1006) 31.7 PG MCHC (test code = 1007) 34.8 G/DL RDW (test code = 1038) 12.7 % NEUTROPHILS (test code = 1008) 55.6 % LYMPHOCYTES (test code = 1010) 36.1 % MONOCYTES (test code = 1011) 5.7 % EOSINOPHILS (test code = 1012) 1.5 % BASOPHILS (test code = 1013) 0.7 % IMMATURE GRANULOCYTES (test 0.4 % code = 1036) NUCLEATED RBCS (test code = 0.0 /100WBC'S 1065) PLATELET COUNT (test code = 262 K/UL 1015) ABSOLUTE NEUTROPHILS (test code 4.70 K/UL = 1066) ABSOLUTE LYMPHOCYTES (test code 3.05 K/UL = 1067) ABSOLUTE MONOCYTES (test code = 0.48 K/UL 1068) ABSOLUTE EOSINOPHILS (test code 0.13 K/UL = 1040) ABSOLUTE BASOPHILS (test code = 0.06 K/UL 1069) ABS IMMATURE GRANULOCYTES (test 0.03 K/UL code = 1020) ABS NUCLEATED RBCS (test code = 0.00 K/UL 85108) [id number] 00:00:00 Test Item Value Reference Range Interpretation Comments TSH, THIRD GENERATION (test code 1.780 UIU/ML = 2821) [id number] 00:00:00 Test Item Value Reference Range Interpretation Comments TSH, THIRD GENERATION (test code 1.780 UIU/ML = 2821) [id number] 00:00:00 Test Item Value Reference Range Interpretation Comments TSH, THIRD GENERATION (test code 1.780 UIU/ML = 2821) COMPREHENSIVE METABOLIC [id number] 00:00:00 Test Item Value Reference Range Interpretation Comments GLUCOSE (test code = 2217) 91 MG/DL BUN (test code = 2208) 13 MG/DL CREATININE (test code = 2214) 0.79 MG/DL eGFR (2020 CKD-EPI) (test code 96 ML/MIN/1.73 = 29668) CALC BUN/CREAT (test code = 16 RATIO 2235) SODIUM (test code = 2231) 142 MEQ/L POTASSIUM (test code = 2228) 4.5 MEQ/L CHLORIDE (test code = 2215) 103 MEQ/L CARBON DIOXIDE (test code = 27 MEQ/L 2206) CALCIUM (test code = 2209) 9.8 MG/DL PROTEIN, TOTAL (test code = 7.3 G/DL 2228) ALBUMIN (test code = 2201) 4.6 G/DL CALC GLOBULIN (test code = 2.7 G/DL 2240) CALC A/G RATIO (test code = 1.7 RATIO 2234) BILIRUBIN, TOTAL (test code = <0.2 MG/DL 2206) ALKALINE PHOSPHATASE (test 101 U/L code = 2204) AST (test code = 2218) 15 U/L ALT (test code = 2219) 14 U/L COMPREHENSIVE METABOLIC [id number] 00:00:00 Test Item Value Reference Range Interpretation Comments GLUCOSE (test code = 2217) 91 MG/DL BUN (test code = 2208) 13 MG/DL CREATININE (test code = 2214) 0.79 MG/DL eGFR (2020 CKD-EPI) (test code 96 ML/MIN/1.73 = 04058) CALC BUN/CREAT (test code = 16 RATIO 2235) SODIUM (test code = 2231) 142 MEQ/L POTASSIUM (test code = 2228) 4.5 MEQ/L CHLORIDE (test code = 2215) 103 MEQ/L CARBON DIOXIDE (test code = 27 MEQ/L 220) CALCIUM (test code = 2209) 9.8 MG/DL PROTEIN, TOTAL (test code = 7.3 G/DL 2228) ALBUMIN (test code = 2201) 4.6 G/DL CALC GLOBULIN (test code = 2.7 G/DL 2240) CALC A/G RATIO (test code = 1.7 RATIO 2234) BILIRUBIN, TOTAL (test code = <0.2 MG/DL 2206) ALKALINE PHOSPHATASE (test 101 U/L code = 2204) AST (test code = 2218) 15 U/L ALT (test code = 2219) 14 U/L LIPID [id number] 00:00:00 Test Item Value Reference Range Interpretation Comments CHOLESTEROL (test code = 2210) 161 MG/DL TRIGLYCERIDES (test code = 2232) 97 MG/DL HDL CHOLESTEROL (test code = 2220) 47 MG/DL CALC LDL CHOL (test code = 2237) 95 MG/DL RISK RATIO LDL/HDL (test code = 2.02 RATIO 2238) LIPID [id number] 00:00:00 Test Item Value Reference Range Interpretation Comments CHOLESTEROL (test code = 2210) 161 MG/DL TRIGLYCERIDES (test code = 2232) 97 MG/DL HDL CHOLESTEROL (test code = 2220) 47 MG/DL CALC LDL CHOL (test code = 2237) 95 MG/DL RISK RATIO LDL/HDL (test code = 2.02 RATIO 2238) CBC W/AUTO [id number] 00:00:00 Test Item Value Reference Range Interpretation Comments WBC (test code = 1001) 8.5 K/UL RBC (test code = 1002) 4.83 M/UL HEMOGLOBIN (test code = 1003) 15.3 G/DL HEMATOCRIT (test code = 1004) 44.0 % MCV (test code = 1005) 91.1 fL MCH (test code = 1006) 31.7 PG MCHC (test code = 1007) 34.8 G/DL RDW (test code = 1038) 12.7 % NEUTROPHILS (test code = 1008) 55.6 % LYMPHOCYTES (test code = 1010) 36.1 % MONOCYTES (test code = 1011) 5.7 % EOSINOPHILS (test code = 1012) 1.5 % BASOPHILS (test code = 1013) 0.7 % IMMATURE GRANULOCYTES (test 0.4 % code = 1036) NUCLEATED RBCS (test code = 0.0 /100WBC'S 1065) PLATELET COUNT (test code = 262 K/UL 1015) ABSOLUTE NEUTROPHILS (test code 4.70 K/UL = 1066) ABSOLUTE LYMPHOCYTES (test code 3.05 K/UL = 1067) ABSOLUTE MONOCYTES (test code = 0.48 K/UL 1068) ABSOLUTE EOSINOPHILS (test code 0.13 K/UL = 1040) ABSOLUTE BASOPHILS (test code = 0.06 K/UL 1069) ABS IMMATURE GRANULOCYTES (test 0.03 K/UL code = 1020) ABS NUCLEATED RBCS (test code = 0.00 K/UL 41575) CBC W/AUTO [id number] 00:00:00 Test Item Value Reference Range Interpretation Comments WBC (test code = 1001) 8.5 K/UL RBC (test code = 1002) 4.83 M/UL HEMOGLOBIN (test code = 1003) 15.3 G/DL HEMATOCRIT (test code = 1004) 44.0 % MCV (test code = 1005) 91.1 fL MCH (test code = 1006) 31.7 PG MCHC (test code = 1007) 34.8 G/DL RDW (test code = 1038) 12.7 % NEUTROPHILS (test code = 1008) 55.6 % LYMPHOCYTES (test code = 1010) 36.1 % MONOCYTES (test code = 1011) 5.7 % EOSINOPHILS (test code = 1012) 1.5 % BASOPHILS (test code = 1013) 0.7 % IMMATURE GRANULOCYTES (test 0.4 % code = 1036) NUCLEATED RBCS (test code = 0.0 /100WBC'S 1065) PLATELET COUNT (test code = 262 K/UL 1015) ABSOLUTE NEUTROPHILS (test code 4.70 K/UL = 1066) ABSOLUTE LYMPHOCYTES (test code 3.05 K/UL = 1067) ABSOLUTE MONOCYTES (test code = 0.48 K/UL 1068) ABSOLUTE EOSINOPHILS (test code 0.13 K/UL = 1040) ABSOLUTE BASOPHILS (test code = 0.06 K/UL 1069) ABS IMMATURE GRANULOCYTES (test 0.03 K/UL code = 1020) ABS NUCLEATED RBCS (test code = 0.00 K/UL 75210) CBC W/AUTO [id number] 00:00:00 Test Item Value Reference Range Interpretation Comments WBC (test code = 1001) 8.5 K/UL RBC (test code = 1002) 4.83 M/UL HEMOGLOBIN (test code = 1003) 15.3 G/DL HEMATOCRIT (test code = 1004) 44.0 % MCV (test code = 1005) 91.1 fL MCH (test code = 1006) 31.7 PG MCHC (test code = 1007) 34.8 G/DL RDW (test code = 1038) 12.7 % NEUTROPHILS (test code = 1008) 55.6 % LYMPHOCYTES (test code = 1010) 36.1 % MONOCYTES (test code = 1011) 5.7 % EOSINOPHILS (test code = 1012) 1.5 % BASOPHILS (test code = 1013) 0.7 % IMMATURE GRANULOCYTES (test 0.4 % code = 1036) NUCLEATED RBCS (test code = 0.0 /100WBC'S 1065) PLATELET COUNT (test code = 262 K/UL 1015) ABSOLUTE NEUTROPHILS (test code 4.70 K/UL = 1066) ABSOLUTE LYMPHOCYTES (test code 3.05 K/UL = 1067) ABSOLUTE MONOCYTES (test code = 0.48 K/UL 1068) ABSOLUTE EOSINOPHILS (test code 0.13 K/UL = 1040) ABSOLUTE BASOPHILS (test code = 0.06 K/UL 1069) ABS IMMATURE GRANULOCYTES (test 0.03 K/UL code = 1020) ABS NUCLEATED RBCS (test code = 0.00 K/UL 27539) [id number] 00:00:00 Test Item Value Reference Range Interpretation Comments TSH, THIRD GENERATION (test code 1.780 UIU/ML = 2821) [id number] 00:00:00 Test Item Value Reference Range Interpretation Comments TSH, THIRD GENERATION (test code 1.780 UIU/ML = 2821) [id number] 00:00:00 Test Item Value Reference Range Interpretation Comments TSH, THIRD GENERATION (test code 1.780 UIU/ML = 2821) COMPREHENSIVE METABOLIC [id number] 00:00:00 Test Item Value Reference Range Interpretation Comments GLUCOSE (test code = 2217) 91 MG/DL BUN (test code = 2208) 13 MG/DL CREATININE (test code = 2214) 0.79 MG/DL eGFR (2020 CKD-EPI) (test code 96 ML/MIN/1.73 = 14606) CALC BUN/CREAT (test code = 16 RATIO 2235) SODIUM (test code = 2231) 142 MEQ/L POTASSIUM (test code = 2228) 4.5 MEQ/L CHLORIDE (test code = 2215) 103 MEQ/L CARBON DIOXIDE (test code = 27 MEQ/L 2205) CALCIUM (test code = 2209) 9.8 MG/DL PROTEIN, TOTAL (test code = 7.3 G/DL 2228) ALBUMIN (test code = 2201) 4.6 G/DL CALC GLOBULIN (test code = 2.7 G/DL 2240) CALC A/G RATIO (test code = 1.7 RATIO 2234) BILIRUBIN, TOTAL (test code = <0.2 MG/DL 2206) ALKALINE PHOSPHATASE (test 101 U/L code = 2204) AST (test code = 2218) 15 U/L ALT (test code = 2219) 14 U/L COMPREHENSIVE METABOLIC [id number] 00:00:00 Test Item Value Reference Range Interpretation Comments GLUCOSE (test code = 2217) 91 MG/DL BUN (test code = 2208) 13 MG/DL CREATININE (test code = 2214) 0.79 MG/DL eGFR (2020 CKD-EPI) (test code 96 ML/MIN/1.73 = 81605) CALC BUN/CREAT (test code = 16 RATIO 2235) SODIUM (test code = 2231) 142 MEQ/L POTASSIUM (test code = 2228) 4.5 MEQ/L CHLORIDE (test code = 2215) 103 MEQ/L CARBON DIOXIDE (test code = 27 MEQ/L 2205) CALCIUM (test code = 2209) 9.8 MG/DL PROTEIN, TOTAL (test code = 7.3 G/DL 2228) ALBUMIN (test code = 2201) 4.6 G/DL CALC GLOBULIN (test code = 2.7 G/DL 2240) CALC A/G RATIO (test code = 1.7 RATIO 2234) BILIRUBIN, TOTAL (test code = <0.2 MG/DL 2206) ALKALINE PHOSPHATASE (test 101 U/L code = 2204) AST (test code = 2218) 15 U/L ALT (test code = 2219) 14 U/L LIPID [id number] 00:00:00 Test Item Value Reference Range Interpretation Comments CHOLESTEROL (test code = 2210) 161 MG/DL TRIGLYCERIDES (test code = 2232) 97 MG/DL HDL CHOLESTEROL (test code = 2220) 47 MG/DL CALC LDL CHOL (test code = 2237) 95 MG/DL RISK RATIO LDL/HDL (test code = 2.02 RATIO 2238) LIPID [id number] 00:00:00 Test Item Value Reference Range Interpretation Comments CHOLESTEROL (test code = 2210) 161 MG/DL TRIGLYCERIDES (test code = 2232) 97 MG/DL HDL CHOLESTEROL (test code = 2220) 47 MG/DL CALC LDL CHOL (test code = 2237) 95 MG/DL RISK RATIO LDL/HDL (test code = 2.02 RATIO 2238) CBC W/AUTO [id number] 00:00:00 Test Item Value Reference Range Interpretation Comments WBC (test code = 1001) 8.5 K/UL RBC (test code = 1002) 4.83 M/UL HEMOGLOBIN (test code = 1003) 15.3 G/DL HEMATOCRIT (test code = 1004) 44.0 % MCV (test code = 1005) 91.1 fL MCH (test code = 1006) 31.7 PG MCHC (test code = 1007) 34.8 G/DL RDW (test code = 1038) 12.7 % NEUTROPHILS (test code = 1008) 55.6 % LYMPHOCYTES (test code = 1010) 36.1 % MONOCYTES (test code = 1011) 5.7 % EOSINOPHILS (test code = 1012) 1.5 % BASOPHILS (test code = 1013) 0.7 % IMMATURE GRANULOCYTES (test 0.4 % code = 1036) NUCLEATED RBCS (test code = 0.0 /100WBC'S 1065) PLATELET COUNT (test code = 262 K/UL 1015) ABSOLUTE NEUTROPHILS (test code 4.70 K/UL = 1066) ABSOLUTE LYMPHOCYTES (test code 3.05 K/UL = 1067) ABSOLUTE MONOCYTES (test code = 0.48 K/UL 1068) ABSOLUTE EOSINOPHILS (test code 0.13 K/UL = 1040) ABSOLUTE BASOPHILS (test code = 0.06 K/UL 1069) ABS IMMATURE GRANULOCYTES (test 0.03 K/UL code = 1020) ABS NUCLEATED RBCS (test code = 0.00 K/UL 40720) CBC W/AUTO [id number] 00:00:00 Test Item Value Reference Range Interpretation Comments WBC (test code = 1001) 8.5 K/UL RBC (test code = 1002) 4.83 M/UL HEMOGLOBIN (test code = 1003) 15.3 G/DL HEMATOCRIT (test code = 1004) 44.0 % MCV (test code = 1005) 91.1 fL MCH (test code = 1006) 31.7 PG MCHC (test code = 1007) 34.8 G/DL RDW (test code = 1038) 12.7 % NEUTROPHILS (test code = 1008) 55.6 % LYMPHOCYTES (test code = 1010) 36.1 % MONOCYTES (test code = 1011) 5.7 % EOSINOPHILS (test code = 1012) 1.5 % BASOPHILS (test code = 1013) 0.7 % IMMATURE GRANULOCYTES (test 0.4 % code = 1036) NUCLEATED RBCS (test code = 0.0 /100WBC'S 1065) PLATELET COUNT (test code = 262 K/UL 1015) ABSOLUTE NEUTROPHILS (test code 4.70 K/UL = 1066) ABSOLUTE LYMPHOCYTES (test code 3.05 K/UL = 1067) ABSOLUTE MONOCYTES (test code = 0.48 K/UL 1068) ABSOLUTE EOSINOPHILS (test code 0.13 K/UL = 1040) ABSOLUTE BASOPHILS (test code = 0.06 K/UL 1069) ABS IMMATURE GRANULOCYTES (test 0.03 K/UL code = 1020) ABS NUCLEATED RBCS (test code = 0.00 K/UL 66120) [id number] 00:00:00 Test Item Value Reference Range Interpretation Comments TSH, THIRD GENERATION (test code 1.780 UIU/ML = 2821) [id number] 00:00:00 Test Item Value Reference Range Interpretation Comments TSH, THIRD GENERATION (test code 1.780 UIU/ML = 2821) COMPREHENSIVE METABOLIC [id number] 00:00:00 Test Item Value Reference Range Interpretation Comments GLUCOSE (test code = 2217) 91 MG/DL BUN (test code = 2208) 13 MG/DL CREATININE (test code = 2214) 0.79 MG/DL eGFR (2020 CKD-EPI) (test code 96 ML/MIN/1.73 = 29055) CALC BUN/CREAT (test code = 16 RATIO 2235) SODIUM (test code = 2231) 142 MEQ/L POTASSIUM (test code = 2228) 4.5 MEQ/L CHLORIDE (test code = 2215) 103 MEQ/L CARBON DIOXIDE (test code = 27 MEQ/L 2205) CALCIUM (test code = 2209) 9.8 MG/DL PROTEIN, TOTAL (test code = 7.3 G/DL 2228) ALBUMIN (test code = 2201) 4.6 G/DL CALC GLOBULIN (test code = 2.7 G/DL 2240) CALC A/G RATIO (test code = 1.7 RATIO 2234) BILIRUBIN, TOTAL (test code = <0.2 MG/DL 2206) ALKALINE PHOSPHATASE (test 101 U/L code = 2204) AST (test code = 2218) 15 U/L ALT (test code = 2219) 14 U/L LIPID [id number] 00:00:00 Test Item Value Reference Range Interpretation Comments CHOLESTEROL (test code = 2210) 161 MG/DL TRIGLYCERIDES (test code = 2232) 97 MG/DL HDL CHOLESTEROL (test code = 2220) 47 MG/DL CALC LDL CHOL (test code = 2237) 95 MG/DL RISK RATIO LDL/HDL (test code = 2.02 RATIO 2238) SARS-CoV-2 (COVID-19) by RT-PCR (HIGH RISK)2020-11-24 00:00:00 Test Item Value Reference Range Interpretation Comments SARS-CoV-2 INTERPRETATION (test NEGATIVE code = 16946) SOURCE (test code = 09169) NOT SPECIFIED SARS-CoV-2 (COVID-19) by RT-PCR (HIGH RISK)2020-11-24 00:00:00 Test Item Value Reference Range Interpretation Comments SARS-CoV-2 INTERPRETATION (test NEGATIVE code = 04067) SOURCE (test code = 91998) NOT SPECIFIED SARS-CoV-2 (COVID-19) by RT-PCR (HIGH RISK)2020-11-24 00:00:00 Test Item Value Reference Range Interpretation Comments SARS-CoV-2 INTERPRETATION (test NEGATIVE code = 69103) SOURCE (test code = 64236) NOT SPECIFIED SARS-CoV-2 (COVID-19) by RT-PCR (HIGH RISK)2020-11-24 00:00:00 Test Item Value Reference Range Interpretation Comments SARS-CoV-2 INTERPRETATION (test NEGATIVE code = 13280) SOURCE (test code = 97540) NOT SPECIFIED SARS-CoV-2 (COVID-19) by RT-PCR (HIGH RISK)2020-11-24 00:00:00 Test Item Value Reference Range Interpretation Comments SARS-CoV-2 INTERPRETATION (test NEGATIVE code = 93177) SOURCE (test code = 92037) NOT SPECIFIED LIPID [id number] 00:00:00 Test Item Value Reference Range Interpretation Comments CHOLESTEROL (test code = 2210) 144 MG/DL TRIGLYCERIDES (test code = 2232) 72 MG/DL HDL CHOLESTEROL (test code = 2220) 38 MG/DL CALC LDL CHOL (test code = 2237) 90 MG/DL RISK RATIO LDL/HDL (test code = 2.37 RATIO 2238) COMPREHENSIVE METABOLIC [id number] 00:00:00 Test Item Value Reference Range Interpretation Comments GLUCOSE (test code = 2217) 86 MG/DL BUN (test code = 2208) 16 MG/DL CREATININE (test code = 2214) 0.98 MG/DL eGFR AMER. (test code 83 ML/MIN/1.73 = 66005) eGFR NON- AMER. (test 72 ML/MIN/1.73 code = 53658) CALC BUN/CREAT (test code = 16 RATIO 2235) SODIUM (test code = 2231) 142 MEQ/L POTASSIUM (test code = 2228) 4.7 MEQ/L CHLORIDE (test code = 2215) 105 MEQ/L CARBON DIOXIDE (test code = 25 MEQ/L 2205) CALCIUM (test code = 2209) 9.3 MG/DL PROTEIN, TOTAL (test code = 7.0 G/DL 2228) ALBUMIN (test code = 2201) 4.3 G/DL CALC GLOBULIN (test code = 2.7 G/DL 224) CALC A/G RATIO (test code = 1.6 RATIO 2234) BILIRUBIN, TOTAL (test code = 0.4 MG/DL 2206) ALKALINE PHOSPHATASE (test 85 U/L code = 2204) AST (test code = 2218) 12 U/L ALT (test code = 2219) 10 U/L COMPREHENSIVE METABOLIC [id number] 00:00:00 Test Item Value Reference Range Interpretation Comments GLUCOSE (test code = 2217) 86 MG/DL BUN (test code = 2208) 16 MG/DL CREATININE (test code = 2214) 0.98 MG/DL eGFR AMER. (test code 83 ML/MIN/1.73 = 99522) eGFR NON- AMER. (test 72 ML/MIN/1.73 code = 93801) CALC BUN/CREAT (test code = 16 RATIO 2235) SODIUM (test code = 2231) 142 MEQ/L POTASSIUM (test code = 2228) 4.7 MEQ/L CHLORIDE (test code = 2215) 105 MEQ/L CARBON DIOXIDE (test code = 25 MEQ/L 220) CALCIUM (test code = 2209) 9.3 MG/DL PROTEIN, TOTAL (test code = 7.0 G/DL 2228) ALBUMIN (test code = 2201) 4.3 G/DL CALC GLOBULIN (test code = 2.7 G/DL 224) CALC A/G RATIO (test code = 1.6 RATIO 2234) BILIRUBIN, TOTAL (test code = 0.4 MG/DL 2206) ALKALINE PHOSPHATASE (test 85 U/L code = 2204) AST (test code = 2218) 12 U/L ALT (test code = 2219) 10 U/L LIPID [id number] 00:00:00 Test Item Value Reference Range Interpretation Comments CHOLESTEROL (test code = 2210) 144 MG/DL TRIGLYCERIDES (test code = 2232) 72 MG/DL HDL CHOLESTEROL (test code = 2220) 38 MG/DL CALC LDL CHOL (test code = 2237) 90 MG/DL RISK RATIO LDL/HDL (test code = 2.37 RATIO 2238) LIPID [id number] 00:00:00 Test Item Value Reference Range Interpretation Comments CHOLESTEROL (test code = 2210) 144 MG/DL TRIGLYCERIDES (test code = 2232) 72 MG/DL HDL CHOLESTEROL (test code = 2220) 38 MG/DL CALC LDL CHOL (test code = 2237) 90 MG/DL RISK RATIO LDL/HDL (test code = 2.37 RATIO 2238) COMPREHENSIVE METABOLIC [id number] 00:00:00 Test Item Value Reference Range Interpretation Comments GLUCOSE (test code = 2217) 86 MG/DL BUN (test code = 2208) 16 MG/DL CREATININE (test code = 2214) 0.98 MG/DL eGFR AMER. (test code 83 ML/MIN/1.73 = 22211) eGFR NON- AMER. (test 72 ML/MIN/1.73 code = 24109) CALC BUN/CREAT (test code = 16 RATIO 2235) SODIUM (test code = 2231) 142 MEQ/L POTASSIUM (test code = 2228) 4.7 MEQ/L CHLORIDE (test code = 2215) 105 MEQ/L CARBON DIOXIDE (test code = 25 MEQ/L 6) CALCIUM (test code = 2209) 9.3 MG/DL PROTEIN, TOTAL (test code = 7.0 G/DL 2228) ALBUMIN (test code = 2201) 4.3 G/DL CALC GLOBULIN (test code = 2.7 G/DL 2240) CALC A/G RATIO (test code = 1.6 RATIO 2234) BILIRUBIN, TOTAL (test code = 0.4 MG/DL 2207) ALKALINE PHOSPHATASE (test 85 U/L code = 2204) AST (test code = 2218) 12 U/L ALT (test code = 2219) 10 U/L COMPREHENSIVE METABOLIC [id number] 00:00:00 Test Item Value Reference Range Interpretation Comments GLUCOSE (test code = 2217) 86 MG/DL BUN (test code = 2208) 16 MG/DL CREATININE (test code = 2214) 0.98 MG/DL eGFR AMER. (test code 83 ML/MIN/1.73 = 46060) eGFR NON- AMER. (test 72 ML/MIN/1.73 code = 06212) CALC BUN/CREAT (test code = 16 RATIO 2235) SODIUM (test code = 2231) 142 MEQ/L POTASSIUM (test code = 2228) 4.7 MEQ/L CHLORIDE (test code = 2215) 105 MEQ/L CARBON DIOXIDE (test code = 25 MEQ/L 2206) CALCIUM (test code = 2209) 9.3 MG/DL PROTEIN, TOTAL (test code = 7.0 G/DL 222) ALBUMIN (test code = 2201) 4.3 G/DL CALC GLOBULIN (test code = 2.7 G/DL 2240) CALC A/G RATIO (test code = 1.6 RATIO 2234) BILIRUBIN, TOTAL (test code = 0.4 MG/DL 2207) ALKALINE PHOSPHATASE (test 85 U/L code = 2204) AST (test code = 2218) 12 U/L ALT (test code = 2219) 10 U/L LIPID [id number] 00:00:00 Test Item Value Reference Range Interpretation Comments CHOLESTEROL (test code = 2210) 144 MG/DL TRIGLYCERIDES (test code = 2232) 72 MG/DL HDL CHOLESTEROL (test code = 2220) 38 MG/DL CALC LDL CHOL (test code = 2237) 90 MG/DL RISK RATIO LDL/HDL (test code = 2.37 RATIO 2238) COMPREHENSIVE METABOLIC [id number] 00:00:00 Test Item Value Reference Range Interpretation Comments GLUCOSE (test code = 2217) 86 MG/DL BUN (test code = 2208) 16 MG/DL CREATININE (test code = 2214) 0.98 MG/DL eGFR AMER. (test code 83 ML/MIN/1.73 = 00465) eGFR NON- AMER. (test 72 ML/MIN/1.73 code = 90870) CALC BUN/CREAT (test code = 16 RATIO 2235) SODIUM (test code = 2231) 142 MEQ/L POTASSIUM (test code = 2228) 4.7 MEQ/L CHLORIDE (test code = 2215) 105 MEQ/L CARBON DIOXIDE (test code = 25 MEQ/L 2205) CALCIUM (test code = 220) 9.3 MG/DL PROTEIN, TOTAL (test code = 7.0 G/DL 2228) ALBUMIN (test code = 220) 4.3 G/DL CALC GLOBULIN (test code = 2.7 G/DL 2239) CALC A/G RATIO (test code = 1.6 RATIO 2233) BILIRUBIN, TOTAL (test code = 0.4 MG/DL 2206) ALKALINE PHOSPHATASE (test 85 U/L code = 2204) AST (test code = 2218) 12 U/L ALT (test code = 2219) 10 U/L LIPID [id number] 00:00:00 Test Item Value Reference Range Interpretation Comments CHOLESTEROL (test code = 2210) 144 MG/DL TRIGLYCERIDES (test code = 2232) 72 MG/DL HDL CHOLESTEROL (test code = 2220) 38 MG/DL CALC LDL CHOL (test code = 2237) 90 MG/DL RISK RATIO LDL/HDL (test code = 2.37 RATIO 2238)"
[2022-08-24] MEDS ORDERED: KETOROLAC 30 MG/ML INJ ONE (20:33)
[2022-08-24 20:36] LABS: Absolute Lymphocytes (CBC) 4.2 K/uL (0.7-4.9); Hematocrit 40.8 % (36.0-45.0); MCV 94.1 fL (80-100); MPV 7.9 fL (7.6-11.3); RBC Red Blood Cell Count 4.33 M/uL (3.86-4.86)
[2022-08-24 20:47] LABS: Potassium 3.7 mEq/L (3.5-5.1)
[2022-08-24 20:48] LABS: Specific Gravity 1.006 (1.005-1.030)
--- NOTE | 2022-08-24 21:01 | RAD REPORT ---
EXAM DESCRIPTION: CT - Head Brain Wo Cont - 08/24/2022 8:50 pm CLINICAL HISTORY: DIZZINESS COMPARISON: Head Brain Wo Cont dated 06/02/2019; Head Brain Wo Cont dated 04/16/2019 TECHNIQUE: All CT scans are performed using dose optimization technique as appropriate and may inclu de automated exposure control or mA/KV adjustment according to patient size. FINDINGS: No intracranial hemorrhage, hydrocephalus or extra-axial fluid collection.No areas of brai n edema or evidence of midline shift. The paranasal sinuses and mastoids are clear. The calvarium is intact. IMPRESSION: No acute intracranial abnormality.
--- NOTE | 2022-08-24 21:03 | RAD REPORT ---
EXAM DESCRIPTION: CT - Neck Angio - 08/24/2022 8:50 pm CLINICAL HISTORY: pain, blurry vision COMPARISON: No comparisons TECHNIQUE: CT angiography of the neck vessels was performed with maximum intensity reformatted image s. All CT scans are performed using dose optimization technique as appropriate and may include automated exposure control or mA/KV adjustment according to patient size. FINDINGS: A left aortic arch is identified with normal three vessel configuration of the great vesse ls. No significant flow abnormality is seen of the common carotid bilaterally. No significant stenosis is identified involving the cervical segments of both internal carotid arteri es. Normal flow is seen within both vertebral arteries. Left dominant vertebral artery. IMPRESSION: No significant flow abnormality of the neck vessels is identified.
--- NOTE | 2022-08-24 21:04 | RAD REPORT ---
EXAM DESCRIPTION: CT - Head angio - 08/24/2022 8:50 pm CLINICAL HISTORY: weakness, visual walker COMPARISON: Head Brain Wo Cont dated 08/24/2022; Head Brain Wo Cont dated 06/02/2019 TECHNIQUE: CT angiography of the head was performed with maximum intensity reformatted images. 3D ma ximum intensity pixel (MIP) reconstructions were created CAROTID STENOSIS REFERENCE USING NASCET CRITERIA: Mild - <50% stenosis. Moderate - 50-69% stenosis. Severe - 70-94% stenosis. Near occlusion - 95-99% stenosis. Occluded - 100% stenosis. All CT scans are performed using dose optimization technique as appropriate and may include automated exposure control or mA/KV adjustment according to patient size. FINDINGS: Anterior circulation: No aneurysm or large vessel occlusion. No hemodynamically significant stenosis. No arteriovenous malf ormation identified. Posterior circulation: No aneurysm or large vessel occlusion. No hemodynamically significant stenosis. No arteriovenous malf ormation identified. IMPRESSION: No significant flow abnormality is detected.
--- NOTE | 2022-08-24 21:37 | ER ---
Nurse's Notes [facility] Name: Manolo Cotter Age: 42 yrs Sex: Female : 1980 Arrival Date: 08/24/2022 Time: 19:19 Bed 5 Private MD: Diagnosis: Muscle weakness (generalized);Contusion of other specified part of neck, initial encounter Presentation: 08/24 19:46 Chief complaint: Patient states: leg weakness X2 weeks. about a week ago my legs went lg3 out on me twice and i fell. it comes and goes. its like im trying to walk but then both legs don't work. i have also been having upper back/neck pain. a few years back a dr told me that i had 7 herniated disks. Coronavirus screen: Client denies travel out of the [place] in the last 14 days. At this time, the client does not indicate any symptoms associated with coronavirus-19. Ebola Screen: No symptoms or risks identified at this time. Initial Sepsis Screen: Does the patient meet any 2 criteria? No. Patient's initial sepsis screen is negative. Does the patient have a suspected source of infection? No. Patient's initial sepsis screen is negative. Risk Assessment: Do you want to hurt yourself or someone else? Patient reports no desire to harm self or others. Onset of symptoms is unknown. 19:46 Method Of Arrival: Ambulatory lg3 19:46 Acuity: NIKO 3 lg3 Triage Assessment: 19:49 General: Appears in no apparent distress. uncomfortable, Behavior is calm, cooperative. lg3 Pain: Complains of pain in head and back of neck. EENT: No deficits noted. No signs and/or symptoms were reported regarding the EENT system. Neuro: No deficits noted. Bullock Agitation-Sedation Scale (RASS): 0 - Alert and Calm Level of Consciousness is awake, alert, obeys commands, Oriented to person, place, time, situation. Cardiovascular: No deficits noted. Denies chest pain, shortness of breath. Respiratory: No deficits noted. Airway is patent Respiratory effort is even, unlabored, Respiratory pattern is regular, symmetrical. GI: No deficits noted. No signs and/or symptoms were reported involving the gastrointestinal system. : No deficits noted. No signs and/or symptoms were reported regarding the genitourinary system. Derm: No deficits noted. No signs and/or symptoms reported regarding the dermatologic system. Musculoskeletal: Reports weakness in right leg and left leg numbness in right leg and left leg. 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 - Social history:: Smoking status: Patient reports the use of cigarette tobacco products, smokes one pack cigarettes per day. Patient/guardian denies using alcohol, street drugs. Screenin:18 [facility] ED Fall Risk Assessment (Adult) History of falling in the last 3 months, jb4 including since admission No falls in past 3 months (0 pts) Confusion or Disorientation No (0 pts) Score/Fall Risk Level 0 - 2 = Low Risk Oriented to surroundings, Maintained a safe environment. Abuse screen: Denies threats or abuse. Nutritional screening: No deficits noted. Tuberculosis screening: No symptoms or risk factors identified. Assessment: 20:15 General: Appears in no apparent distress. comfortable, Behavior is calm, cooperative, jb4 appropriate for age. Pain: Complains of pain in scalp Pain radiates to right leg and left leg Pain currently is 6 out of 10 on a pain scale. Neuro: Level of Consciousness is awake, alert, obeys commands, Oriented to person, place, time, situation, Moves all extremities. Full function. Cardiovascular: Patient's skin is warm and dry. Respiratory: Airway is patent Respiratory effort is even, unlabored, Respiratory pattern is regular, symmetrical. GI: No signs and/or symptoms were reported involving the gastrointestinal system. : No signs and/or symptoms were reported regarding the genitourinary system. EENT: No signs and/or symptoms were reported regarding the EENT system. Derm: Skin is intact, Skin is pink, warm \\T\\ dry. Musculoskeletal: Circulation, motion, and sensation intact. Range of motion: intact in all extremities. 21:36 Reassessment: Patient appears in no apparent distress at this time. Patient and/or jb4 family updated on plan of care and expected duration. Pain level reassessed. Patient is alert, oriented x 3, equal unlabored respirations, skin warm/dry/pink. Vital Signs: 19:46 BP 145 / 104; Pulse 71; Resp 18 S; Temp 98.1(TE); Pulse Ox 100% on R/A; Weight 66.22 kg lg3 (R); Height 5 ft. 2 in. (R); 21:38 BP 129 / 94; Pulse 65; Resp 16; Pulse Ox 99% on R/A; jb4 19:46 Body Mass Index 26.70 (66.22 kg, 157.48 cm) lg3 ED Course: 19:26 Patient arrived in ED. im 19:49 Triage completed. lg3 19:49 Arm band placed on left wrist. lg3 19:51 Vinay Oviedo MD is Attending Physician. bs3 20:09 Murtaza Smith, YADIRA is Primary Nurse. jb4 20:18 Patient has correct armband on for positive identification. Bed in low position. Call jb4 light in reach. Side rails up X 1. Client placed on continuous cardiac and pulse oximetry monitoring. NIBP monitoring applied. 20:29 Inserted saline lock: 20 gauge in right antecubital area, using aseptic technique. rv Blood collected. 20:52 CT Head Angio In Process Unspecified. EDMS 20:52 CT Neck Angio In Process Unspecified. EDMS 20:52 CT Head Brain wo Cont In Process Unspecified. EDMS 21:35 Von Sanchez MD is Referral Physician. bs3 21:47 No provider procedures requiring assistance completed. IV discontinued, intact, jb4 bleeding controlled, No redness/swelling at site. Pressure dressing applied. Administered Medications: 20:27 Drug: Ketorolac IVP 15 mg Route: IVP; Site: right antecubital; jb4 Outcome: 21:36 Discharge ordered by . bs3 21:47 Discharged to home ambulatory, with family. jb4 21:47 Condition: stable 21:47 Discharge instructions given to patient, Instructed on discharge instructions, follow up and referral plans. no drinking with medication, no driving heavy equipment, medication usage, Demonstrated understanding of instructions, follow-up care, medications, Prescriptions given X 2. 21:48 Patient left the ED. jb4 Signatures: Dispatcher [employer] EDMurtaza Vargas RN RN jb4 Sandoval Gutierres RN Samantha Hart RN RN lg3 Vinay Oviedo MD MD bs3 Donna Peres
--- NOTE | 2022-08-24 21:37 | EDPHYS ---
Physician Documentation [facility] Name: Manolo Cotter Age: 42 yrs Sex: Female : 1980 Arrival Date: 08/24/2022 Time: 19:19 Bed 5 Private MD: ED Physician Vinay Oviedo HPI: 08/24 21:30 This 42 yrs old Female presents to ER via Ambulatory with complaints of Neck bs3 Pain, >24Hrs Old. 21:31 42-year-old female history of hypertension, migraines, mini strokes presents with bs3 several weeks of 2 complaints she notes neck pain and leg sensation changes where she feels like her legs give out occasionally she denies numbness tingling or weakness in her upper extremities denies any changes in her vision any chest pain shortness of breath any abdominal pain she is not describe any low back pain at all no urinary symptoms or bowel symptoms she previously followed with Dr. Dhaliwal for her prior possible stroke she went to an outside hospital they did blood work which was normal her primary care referred her to a clinic and they did blood work which was normal but she has had no imaging she notes that her neck pain is worse with movement better with rest. 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 - Social history:: Smoking status: Patient reports the use of cigarette tobacco products, smokes one pack cigarettes per day. Patient/guardian denies using alcohol, street drugs. ROS: 21:31 Constitutional: Negative for fever, chills bs3 21:31 All other systems are negative. Exam: 21:31 Constitutional: This is a well developed, well nourished patient who is awake, alert, bs3 and in no acute distress. Head/Face: Normocephalic, atraumatic. Eyes: Pupils equal round and reactive to light, extra-ocular motions intact. Lids and lashes normal. ENT: mmm, no posterior phyarngeal erythema Neck: Paraspinal tenderness on the right side no focal midline tenderness Chest/axilla: Normal chest wall appearance and motion. Nontender with no deformity. No lesions are appreciated. Cardiovascular: Regular rate and rhythm with a normal S1 and S2. symmetric pulses in upper extremities Respiratory: Lungs have equal breath sounds bilaterally, clear to auscultation, no respiratory distress Abdomen/GI: Soft, non-tender, no rebound or guarding Skin: Warm, dry with normal turgor. Normal color with no rashes, no lesions, and no evidence of cellulitis. MS/ Extremity: Pulses equal, no cyanosis. Neurovascular intact. Full, normal range of motion. Neuro: Awake and alert, GCS 15, oriented to person, place, time, and situation. Cranial nerves II-XII grossly intact. Motor strength 5/5 in all extremities. Sensory grossly intact. Patient with intact reflexes in the patellar region bilaterally she has a very normal gait here she has normal sensation to light and sharp touch in her bilateral lower extremities Psych: Awake, alert, with orientation to person, place and time. Behavior, mood, and affect are within normal limits. Vital Signs: 19:46 BP 145 / 104; Pulse 71; Resp 18 S; Temp 98.1(TE); Pulse Ox 100% on R/A; Weight 66.22 kg lg3 (R); Height 5 ft. 2 in. (R); 21:38 BP 129 / 94; Pulse 65; Resp 16; Pulse Ox 99% on R/A; jb4 19:46 Body Mass Index 26.70 (66.22 kg, 157.48 cm) lg3 MDM: 19:51 Patient medically screened. bs3 21:31 Data reviewed: vital signs, nurses notes. ED course: Possible cervical dissection bs3 possible multiple pole sclerosis her symptoms are not consistent with a CVA and she has no focal weakness here in actual no neurodeficits her NIH is 0 given that she had previous blood work she may benefit from imaging right now I do suspect there may be a component of musculoskeletal pain as she is very tender laterally in her neck and this may cause her to feel weak in her legs when her pain gets severe Her work-up was nondiagnostic for any etiology of her symptoms she remained asymptomatic neurologically and her assessment here advised follow-up with her neurologist Dr. Dhaliwal we will trial pain medicine and start. 08/24 20:22 Order name: CBC with Diff; Complete Time: 21:15 bs3 08/24 20:22 Order name: BMP; Complete Time: 21:15 bs3 08/24 20:22 Order name: Test, Urine; Complete Time: 21:15 bs3 08/24 21:12 Order name: CREATININE WHOLE BLOOD; Complete Time: 21:15 EDMS 08/24 20:22 Order name: CT Head Angio; Complete Time: 21:15 bs3 08/24 20:22 Order name: CT Neck Angio; Complete Time: 21:15 bs3 08/24 20:22 Order name: CT Head Brain wo Cont; Complete Time: 21:15 bs3 Administered Medications: 20:27 Drug: Ketorolac IVP 15 mg Route: IVP; Site: right antecubital; jb4 Disposition Summary: 08/24/22 21:36 Discharge Ordered Location: Home bs3 Problem: new bs3 Symptoms: have improved bs3 Condition: Stable bs3 Diagnosis - Muscle weakness (generalized) bs3 - Contusion of other specified part of neck, initial encounter bs3 Followup: bs3 - With: Von Sanchez MD - When: 2 - 3 days - Reason: Re-evaluation by your physician Discharge Instructions: - Discharge Summary Sheet bs3 - Weakness, [id number] bs3 - Muscle Strain, [id number] bs3 Forms: - Medication Reconciliation Form bs3 - Thank You Letter bs3 - Antibiotic Education bs3 - Prescription Opioid Use bs3 Prescriptions: - Prednisone 20 mg Oral Tablet - take 2 tablets by ORAL route once daily for 5 days; 10 tablet; Refills: 0, bs3 Product Selection Permitted - Cyclobenzaprine 5 mg Oral Tablet - take 1 tablet by ORAL route 3 times per day As needed; 15 tablet; Refills: 0, bs3 Product Selection Permitted Signatures: Dispatcher [employer] EDMurtaza Vargas RN RN jb4 Samantha Cazares RN RN lg3 Vinay Oviedo MD MD bs3
[2022-08-24 22:54] VITALS: TEMP 98.1
[2022-08-24 23:01] VITALS: BP 129/94; O2SAT 99
== END 2022-08-24 21:48 | disposition home or self-care (01) ==
LOC: ER 19:19
DX: S10.83XA Contusion of other specified part of neck, initial encounter (principal); M62.81 Muscle weakness (generalized)
CPT/HCPCS: 36415; 70450; 70496; 70498; 80048; 81025; 82565; 85025; 96374; 99284; Q9967